=== PATIENT | male | born 1965 | race Caucasian/White ===

== ENCOUNTER 2017-05-04 16:53 | Emergency (ER) | payer MEDICARE, MEDICAID ==
--- NOTE | 2017-05-04 20:27 | ED ---
Lower Extremity - HPI Summary HPI Summary: Patient presents with right foot swelling and pain which has been worsening x 3 weeks and denies injury, denies any fevers. He states he has decreased sensation bilaterally in his legs at baseline. He is anxious during physical exam. He is concerned for an infection. Denies fevers, chills or sweats. He states he does not work and is infrequently on his feet, but has been up more lately. No pain in the calf or the posterior knee. Denies trauma, denies recent travel. - History of Current Complaint Chief Complaint: EDSoftTissueLowExtr Stated Complaint: RIGHT FOOT SWELLING Time Seen by Provider: 05/04/17 19:37 Pain Intensity: 2 - Risk Factors Gout Risk Factors: Male DVT Risk Factors: Negative Septic Arthritis Risk Factor: Negative - Allergies/Home Medications Allergies/Adverse Reactions: Allergies Allergy/AdvReac Type Severity Reaction Status Date / Time Mixed Ragweed Allergy Congestion Verified 05/04/17 19:45 NOTE/MISC Allergy Congestion Verified 05/04/17 19:45 PMH/Surg Hx/FS Hx/Imm Hx Previously Healthy: Yes Endocrine/Hematology History: Denies: Hx Diabetes Cardiovascular History: Denies: Hx Congestive Heart Failure, Hx Hypertension, Hx Pacemaker/ICD History: Denies: Hx Renal Disease Musculoskeletal History: Denies: Hx Rheumatoid Arthritis, Hx Osteoporosis Sensory History: Denies: Hx Hearing Aid Neurological History: Reports: Other Neuro Impairments/Disorders - Hx LUMBAR Fx Psychiatric History: Reports: Hx Anxiety Denies: Hx Panic Disorder - Surgical History Surgery Procedure, Year, and Place: PILONIDAL CYST(LOWER BACK) X 4. CYST ON LEFT ELBOW REMOVED. BASAL CELL REMOVED FROM RIGHT CHEEK - Immunization History Hx Pertussis Vaccination: No Immunizations Up to Date: Unable to Obtain/Confirm Infectious Disease History: No Infectious Disease History: Denies: Traveled Outside the [place] in Last 30 Days - Family History Known Family History: Negative: Cardiac Disease, Hypertension, Diabetes - Social History Occupation: Unemployed Lives: Alone Alcohol Use: Occasionally Hx Substance Use: No Substance Use Type: Reports: None Substance Use Comment - Amount & Last Used: one drink every two weeks Hx Tobacco Use: No Smoking Status (MU): Never Smoked Tobacco Review of Systems Constitutional: Negative ENT: Negative Respiratory: Negative Positive: no symptoms reported, see HPI Positive: Arthralgia - right foot pain Skin: Negative Neurological: Negative Positive: Anxious All Other Systems Reviewed And Are Negative: Yes Physical Exam Triage Information Reviewed: Yes Vital Signs On Initial Exam: Initial Vitals Temp Pulse Resp BP Pulse Ox 97.8 F 77 16 133/91 95 05/04/17 19:45 05/04/17 19:45 05/04/17 19:45 05/04/17 19:45 05/04/17 19:45 Vital Signs Reviewed: Yes Appearance: Positive: Well-Appearing, Well-Nourished Skin: Positive: Warm, Skin Color Reflects Adequate Perfusion Neck: Positive: Supple, Nontender, No Lymphadenopathy Respiratory/Lung Sounds: Positive: Breath Sounds Present Cardiovascular: Positive: Normal, RRR Musculoskeletal: Positive: Pain @ - over the dorsum of the right foot Neurological: Positive: Sensory/Motor Intact, Alert, Oriented to Person Place, Time Psychiatric: Positive: Anxious AVPU Assessment: Alert - [place] Coma Scale Best Eye Response: 4 - Spontaneous Best Motor Response: 6 - Obeys Commands Best Verbal Response: 5 - Oriented Coma Scale Total: 15 Diagnostics - Vital Signs Vital Signs Temp Pulse Resp BP Pulse Ox 05/04/17 19:45 97.8 F 77 16 133/91 95 - Laboratory Lab Statement: Any lab studies that have been ordered have been reviewed, and results considered in the medical decision making process. 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 - Diagnoses Differential Diagnosis/HQI/PQRI: Positive: Infection, Sprain, Strain, Tendonitis Provider Diagnoses: Stress fracture Discharge - Discharge Plan Condition: Stable Disposition: HOME Patient Education Materials: Foot Fracture in Adults (ED) Referrals: Delfina Pugh NP [Primary Care Provider] - Additional Instructions: You have been dx with stress fracture Stress fractures at low-risk sites are managed conservatively with the following interventions Acute pain control as needed using ice, and acetaminophen or ibuprofen Protection of the fracture site with reduced weight-bearing or marciano wrapped for comfort Boot given only if you feel this reduces the pain during ambulation Purchase supportive insoles for shoes to aid in foot structure Reduction or modification of activities such that pain is not present Gradual resumption of activities if pain-free Rehabilitative exercise to promote optimal biomechanics Proper nutrition, including additional calcium and vitamin D Follow up with PCP Call next week for appt.
[2017-05-04 20:48] VITALS: BP 123/88
--- NOTE | 2017-05-05 08:13 | RAD ---
Indication: Multiple weeks RIGHT foot pain and swelling. Comparison: March 31, 2017 radiographs. Technique: [employer] 1.5 Myah IP750G with GEM suite. Noncontrast MRI RIGHT foot from level of the transverse tarsal joint proximally through the toes. Examination limited due to multiplanar T1 and inversion recovery series. Report: Extensive predominant subcutaneous edema as well as edema involving the intrinsic musculature surrounding the second metatarsal. No loculated soft tissue fluid collection evident. Extensive T2 hyperintense marrow edema at the second metatarsal from the base through the distal diaphysis. Nondisplaced oblique coronal fracture plane at the proximal metaphysis. Corresponding loss of normal T1 marrow hyperintensity. There is less specific T2 hyperintense marrow edema at the cuboid, lateral cuneiform, and proximal aspect of the third metatarsal. Partial loss of normal T1 marrow hyperintensity at the distal aspect of the cuboid without definitive fracture plane. Normal articular alignment. Rivas images saved on the [facility] PACS. IMPRESSION: 1. Nondisplaced fracture proximal metaphysis second metatarsal. 2. Noted extensive subcutaneous edema and edema surrounding the second metatarsal is nonspecific. The edema may be secondary to the second metatarsal stress fracture and stress reactions or reactive edema at the third metatarsal, lateral cuneiform, and cuboid bone however cellulitis with deep soft tissue infection and osteomyelitis is not entirely excluded. The fracture at the second metatarsal may represent an insufficiency fracture secondary to osteomyelitis. Clinical correlation warranted. Results discussed with Charge Nurse Becky in the ED 05/05/2017 8:07 AM EDT
== END 2017-05-04 20:48 | disposition home or self-care (01) ==
LOC: ED 16:53
DX: S92.301A Fracture of unspecified metatarsal bone(s), right foot, initial encounter for closed fracture (principal); F41.9 Anxiety disorder, unspecified; X58.XXXA Exposure to other specified factors, initial encounter; Y93.9 Activity, unspecified; Y92.9 Unspecified place or not applicable
CPT/HCPCS: 99282

== ENCOUNTER 2018-01-03 06:38 | Day surgery (SDC) | payer MEDICARE, MEDICAID ==
[~2018-01-03 06:38] MED LIST: Buffered Lidocaine 0.9% SYRIN* 5 ML/SYR SYRINGE INTRADERM ONE; DiMENhydriNATE IV* 50 MG/ML VIAL IV PUSH PRN; Famotidine IV* 10 MG/ML 2 ML (20 mg) IV ONE; Morphine INJ* 2 MG/ML 1 ML CARPUJECT IV PRN; Naloxone* 0.4 MG/ML 1 ML VIAL IV PRN; PROCHLORPERAZINE INJ 5 MG/ML 2 ML VIAL IV PRN; Scopolamine 1.5 mg* PATCH TRANSDERM PRN; fentaNYL* 50 MCG/ML 2 ML VIAL (100 MCG VIAL) IV PRN; oxyCODONE/Acetamin 5/325 MG* TAB PO PRN
[2018-01-03] MEDS ORDERED: ceFAZolin 2 GM (*##) 2 GM/100 ML BAG USE CEFA2SOL IVPB ONE (06:51)
[2018-01-03] MEDS ORDERED: Famotidine IV* 10 MG/ML 2 ML (20 mg) ONE (06:51)
[2018-01-03] MEDS ORDERED: Scopolamine 1.5 mg* PATCH ONE (06:51)
[2018-01-03] MEDS ORDERED: Buffered Lidocaine 0.9% SYRIN* 5 ML/SYR SYRINGE ONE (06:51)
[2018-01-03] MEDS ORDERED: fentaNYL* 50 MCG/ML 2 ML VIAL (100 MCG VIAL) ONE (07:53)
[2018-01-03] MEDS ORDERED: Midazolam* 1 MG/ML 10 ML VIAL (10 MG) ONE (07:53)
[2018-01-03] MEDS ORDERED: Bupivacaine 0.5% SDV PF* 10-30ML VIAL ONE (08:19)
[2018-01-03] MEDS ORDERED: Propofol* 10 MG/ML 20 ML BTL IV PUSH ONE (09:29)
[2018-01-03] MEDS ORDERED: Ondansetron INJ* 2 MG/ML VIAL ONE (09:29)
[2018-01-03] MEDS ORDERED: Dexamethasone IV* 4 MG/ML 1 ML (4 MG) ONE (09:29)
[2018-01-03] MEDS ORDERED: Bupivacaine 0.25% SDV* 30 ML ONE (09:29)
[2018-01-03] MEDS ORDERED: Ketorolac INJ* 30 MG/ML 1 ML VIAL ONE (09:29)
[2018-01-03] MEDS ORDERED: Chloroprocaine 2%* 20 ML VIAL ONE (09:29)
[2018-01-03] MEDS ORDERED: Lidocaine 2% PF * 5 ML VIAL ONE (09:33)
[2018-01-03] MEDS ORDERED: Labetalol IV* 5 MG/ML 20 ML VIAL ONE (10:14)
[2018-01-03] MEDS ORDERED: hydrALAZINE IV* 20 MG/ML VIAL ONE (10:48)
[2018-01-03 11:37] VITALS: BP 147/91
--- NOTE | 2018-01-04 08:27 | OP ---
DATE OF OPERATION: 01/03/18 - [facility] DATE OF : 63 SURGEON: Cuate Gurrola MD IV RN: Loni Mike PA-C PRE-OP DIAGNOSIS: Fractured nonunion right second metatarsal. POST-OP DIAGNOSIS: Fractured nonunion right second metatarsal. OPERATIVE PROCEDURE: Open reduction internal fixation right second metatarsal with tibial bone graft. DESCRIPTION OF PROCEDURE: The patient was taken to the operating room. Thigh tourniquet inflated. We made a longitudinal incision over the dorsum of the midfoot exposing the proximal shaft of the second metatarsal. A nonunion area was taken down with a freer elevator and a small osteotome. Now, we prepared the nonunion site with a 2.4 mm power kristen and harvested some bone graft proximally at Gerdy's tubercle through a 3 cm oblique incision, small corticotomy made with a power bur and curette used to harvest some cancellous bone, which was placed along the nonunion site. We then used an Arthrex 3.0 mm screw plate for the proximal fixation. Two proximal screw holes were made into the proximal fragment and oblique screw across the nonunion site and then two distal locking screws. X-ray intraoperatively showed satisfactory position of the plate. We changed one screw that appeared to be too long. We then irrigated thoroughly closing with Vicryl and nylon suture as well as compression dressing, plaster splint. The proximal tibial donor site was packed with cancellous allograft, closed with 2- 0 Vicryl asif, compression dressing. [id number]/[facility] #: [id number] JEREMY
[2018-01-06] MEDS ORDERED: Scopolamine PATCH Remove* 1 NOTE MISC PATCH OFF ONE (05:53)
== END 2018-01-03 11:37 | disposition home or self-care (01) ==
LOC: OR 06:38
PROVIDERS: ATTEND Orthopaedic Surgery
DX: S92.321K Displaced fracture of second metatarsal bone, right foot, subsequent encounter for fracture with nonunion (principal); E78.5 Hyperlipidemia, unspecified; F42.9 Obsessive-compulsive disorder, unspecified; G89.18 Other acute postprocedural pain; X58.XXXD Exposure to other specified factors, subsequent encounter
CPT/HCPCS: A9270-GY; C1713; C1776; J0360; J1100; J1885; J2250; J2400; J2405; J2704; J3010

== ENCOUNTER 2018-01-06 01:41 | Emergency (ER) | payer MEDICARE, MEDICAID ==
[2018-01-06] MEDS ORDERED: Vancomycin(*) 1,000 MG BAG/ADDV IVPB ONE (02:45)
[2018-01-06] MEDS ORDERED: HYDROmorphone INJ* 1 MG/ML CARPUJECT SYRINGE ONE (02:45)
[2018-01-06] MEDS ORDERED: Acetaminophen TAB* 325 MG ONE (02:45)
[2018-01-06] MEDS ORDERED: Ondansetron INJ* 2 MG/ML VIAL ONE (02:45)
[2018-01-06] MEDS ORDERED: Albuterol/Ipratropium NEB.SOL* Albuterol 2.5 MG/Ipratropium 0.5 MG 3 ML ONE (03:37)
[2018-01-06 03:55] LABS: ABS Basophils 0.1 10^3/ul (0-0.2); ABS Eosinophils 0.2 10^3/ul (0-0.6); ABS Lymphocytes 1.5 10^3/ul (1.0-4.8); ABS Monocytes 1.5 10^3/ul (0-0.8); ABS Nucleated RBC 0 10^3/ul; Eosinophil % 1.8 % (0-6); Hematocrit 53 % (42-52); Hemoglobin 17.7 g/dl (14.0-18.0); Lymphocyte % 12.6 % (25-47); Mean Corpuscular HGB Conc 34 g/dl (31-36); Mean Corpuscular Hemoglobin 29 pg (27-31); Mean Corpuscular Volume 87 fL (80-94); Mean Platelet Volume 8 um3 (7.4-10.4); Nucleated Red Blood Cells % 0.1; Platelet Count 197 10^3/ul (150-450); Red Blood Count 6.07 10^6/ul (4.0-5.4); Red Cell Distribution Width 14 % (10.5-15); White Blood Count 12.3 10^3/ul (3.5-10.8)
[2018-01-06 03:56] LABS: EGFR Non-African American 86.1 (>60)
[2018-01-06 03:57] LABS: INR 0.99 (0.77-1.02)
[2018-01-06] MEDS ORDERED: Piperacillin/Tazobac (*) 3.375 GM BAG ONE (04:23)
--- NOTE | 2018-01-06 05:59 | ED ---
Mercedez Ellis Abhishek, scribed for Marge Trujillo MD on 01/06/18 at 0542 . Lower Extremity - HPI Summary HPI Summary: The pt is a 52 y/o male presenting to the [facility] with a chief complaint of right lower thigh/leg swelling s/p surgery since 3 hours ago. The pt states that the area of the swelling is warm to the touch and exhibits redness. Pt had a surgery two days and flesh was removed from his right knee to cover steel plate in his foot. Pt reports of SOB and anxiety. Pt denies of fevers and chills. Symptoms aggravated by palpation and alleviated by nothing. The patient rates the pain 5/10 in severity. Medication hx reviewed. The physician who performed to surgery on the pt was Dr. Gurrola. - History of Current Complaint Chief Complaint: EDExtremityLower Stated Complaint: RIGHT LEG SWELLING Time Seen by Provider: 01/06/18 01:59 Hx Obtained From: Patient Onset of Pain: Hours - 3 hours ago Onset/Duration: Hours - since 3 hours ago Severity Initially: Moderate Severity Currently: Moderate Pain Intensity: 5 Pain Scale Used: 0-10 Numeric Timing: Constant Location: Is Discrete @ - right lower leg Character Of Pain: Burning Associated Signs And Symptoms: Positive: Swelling Aggravating Factor(s): Other - palpation Alleviating Factor(s): Nothing - Allergies/Home Medications Allergies/Adverse Reactions: Allergies Allergy/AdvReac Type Severity Reaction Status Date / Time ragweed pollen Allergy Intermediate Congestion Verified 01/03/18 06:58 PMH/Surg Hx/FS Hx/Imm Hx Endocrine/Hematology History: Reports: Hx Thyroid Disease - on meds Denies: Hx Diabetes, Hx Anemia - blood levels too high, has blood taken to thin out Cardiovascular History: Denies: Hx Congestive Heart Failure, Hx Hypertension, Hx Pacemaker/ICD Respiratory History: Reports: Hx Asthma, Hx Sleep Apnea - no machine History: Denies: Hx Renal Disease Musculoskeletal History: Reports: Hx Arthritis, Other Musculoskeletal History - broke back 15 years ago Denies: Hx Rheumatoid Arthritis, Hx Osteoporosis Sensory History: Reports: Hx Contacts or Glasses - reading Denies: Hx Cataracts, Hx Glaucoma, Hx Hearing Aid Opthamlomology History: Reports: Hx Contacts or Glasses - reading Denies: Hx Cataracts, Hx Glaucoma Neurological History: Reports: Other Neuro Impairments/Disorders - Hx LUMBAR Fx Psychiatric History: Reports: Hx Anxiety, Hx Depression Denies: Hx Panic Disorder - Cancer History Hx Chemotherapy: No - Surgical History Surgery Procedure, Year, and Place: PILONIDAL CYST(LOWER BACK) X 4. CYST ON LEFT ELBOW REMOVED. BASAL CELL REMOVED FROM RIGHT CHEEK Hx Anesthesia Reactions: No Infectious Disease History: No Infectious Disease History: Denies: Traveled Outside the [place] in Last 30 Days - Family History Known Family History: Negative: Cardiac Disease, Hypertension, Diabetes - Social History Alcohol Use: Occasionally Hx Substance Use: No Substance Use Type: Reports: None Substance Use Comment - Amount & Last Used: one drink every two weeks Hx Tobacco Use: No Smoking Status (MU): Never Smoked Tobacco Review of Systems Negative: Fever, Chills Eyes: Negative ENT: Negative Cardiovascular: Negative Respiratory: Negative Gastrointestinal: Negative Genitourinary: Negative Positive: Edema - right lower leg/thigh Skin: Other - redness in the right lower leg/thigh that is warm to touch Neurological: Negative Positive: Anxious All Other Systems Reviewed And Are Negative: Yes Physical Exam - Summary Physical Exam Summary: VITAL SIGNS: Reviewed. GENERAL: ~Patient is a well-developed and nourished (MALE). Pt is anxious and flushed. Patient is not in any acute respiratory distress. HEAD AND FACE: No signs of trauma. No ecchymosis, hematomas or skull depressions. No sinus tenderness. EYES: PERRLA, EOMI x 2, No injected conjunctiva, no nystagmus. EARS: Hearing grossly intact. Ear canals and tympanic membranes are within normal limits. MOUTH: Oropharynx within normal limits. NECK: Supple, trachea is midline, no adenopathy, no JVD, no carotid bruit, no c- spine tenderness, neck with full ROM. CHEST: Symmetric, n SKIN: Dry and warm o tenderness at palpation LUNGS: Clear to auscultation bilaterally. No wheezing or crackles. CVS: Regular rate and rhythm, S1 and S2 present, no murmurs or gallops appreciated. ABDOMEN: Soft, non-tender. Belly Distended. No rebound no guarding, and no masses palpated. Bowel sounds are normal. EXTREMITIES: Used splint ortho glass by orthopedist, below the knee to the right foot. Right ankle to mid thigh shows redness. NEURO: Alert and oriented x 3. No acute neurological deficits. Speech is normal and follows commands. Triage Information Reviewed: Yes Vital Signs On Initial Exam: Initial Vitals Temp Pulse Resp BP Pulse Ox 97.3 F 96 16 126/82 99 01/06/18 01:44 01/06/18 01:44 01/06/18 01:44 01/06/18 01:44 01/06/18 01:44 Vital Signs Reviewed: Yes Diagnostics - Vital Signs Vital Signs Temp Pulse Resp BP Pulse Ox 01/06/18 05:04 98 F 96 18 118/62 01/06/18 05:00 93 13 99/45 95 01/06/18 04:30 92 18 109/66 96 01/06/18 04:17 99 F 92 18 121/54 98 01/06/18 04:08 92 16 121/54 96 01/06/18 04:00 93 22 143/116 97 01/06/18 03:30 85 17 135/79 97 01/06/18 03:22 84 19 132/71 97 01/06/18 03:03 84 24 131/74 97 01/06/18 03:00 85 20 97 01/06/18 02:47 84 18 96 01/06/18 02:45 109/75 01/06/18 01:44 97.3 F 96 16 126/82 99 - Laboratory Lab Results: Lab Results 01/06/18 01/06/18 01/06/18 Range/Units 02:30 02:30 02:30 WBC 12.3 H (3.5-10.8) 10^3/ul RBC 6.07 H (4.0-5.4) 10^6/ul Hgb 17.7 (14.0-18.0) g/dl Hct 53 H (42-52) % MCV 87 (80-94) fL MCH 29 (27-31) pg MCHC 34 (31-36) g/dl RDW 14 (10.5-15) % Plt Count 197 (150-450) 10^3/ul MPV 8 (7.4-10.4) um3 Neut % (Auto) 73.0 (38-83) % Lymph % (Auto) 12.6 L (25-47) % [place] % (Auto) 12.2 H (0-7) % Eos % (Auto) 1.8 (0-6) % Baso % (Auto) 0.4 (0-2) % Absolute Neuts (auto) 9.0 H (1.5-7.7) 10^3/ul Absolute Lymphs (auto) 1.5 (1.0-4.8) 10^3/ul Absolute Monos (auto) 1.5 H (0-0.8) 10^3/ul Absolute Eos (auto) 0.2 (0-0.6) 10^3/ul Absolute Basos (auto) 0.1 (0-0.2) 10^3/ul Absolute Nucleated RBC 0 10^3/ul Nucleated RBC % 0.1 INR (Anticoag Therapy) 0.99 (0.77-1.02) APTT 30.3 (26.0-36.3) seconds Sodium 133 (133-145) mmol/L Potassium 4.0 (3.5-5.0) mmol/L Chloride 100 L (101-111) mmol/L Carbon Dioxide 25 (22-32) mmol/L Anion Gap 8 (2-11) mmol/L BUN 12 (6-24) mg/dL Creatinine 0.92 (0.67-1.17) mg/dL Est GFR ( Amer) 110.7 (>60) Est GFR (Non-Af Amer) 86.1 (>60) BUN/Creatinine Ratio 13.0 (8-20) Glucose 92 (70-100) mg/dL Lactic Acid (0.5-2.0) mmol/L Calcium 9.6 (8.6-10.3) mg/dL Total Bilirubin 1.00 (0.2-1.0) mg/dL AST 23 (13-39) U/L ALT 19 (7-52) U/L Alkaline Phosphatase 84 (34-104) U/L C-Reactive Protein 146.74 H (< 5.00) mg/L Total Protein 7.0 (6.4-8.9) g/dL Albumin 3.8 (3.2-5.2) g/dL Globulin 3.2 (2-4) g/dL Albumin/Globulin Ratio 1.2 (1-3) 01/06/18 Range/Units 02:30 WBC (3.5-10.8) 10^3/ul RBC (4.0-5.4) 10^6/ul Hgb (14.0-18.0) g/dl Hct (42-52) % MCV (80-94) fL MCH (27-31) pg MCHC (31-36) g/dl RDW (10.5-15) % Plt Count (150-450) 10^3/ul MPV (7.4-10.4) um3 Neut % (Auto) (38-83) % Lymph % (Auto) (25-47) % [place] % (Auto) (0-7) % Eos % (Auto) (0-6) % Baso % (Auto) (0-2) % Absolute Neuts (auto) (1.5-7.7) 10^3/ul Absolute Lymphs (auto) (1.0-4.8) 10^3/ul Absolute Monos (auto) (0-0.8) 10^3/ul Absolute Eos (auto) (0-0.6) 10^3/ul Absolute Basos (auto) (0-0.2) 10^3/ul Absolute Nucleated RBC 10^3/ul Nucleated RBC % INR (Anticoag Therapy) (0.77-1.02) APTT (26.0-36.3) seconds Sodium (133-145) mmol/L Potassium (3.5-5.0) mmol/L Chloride (101-111) mmol/L Carbon Dioxide (22-32) mmol/L Anion Gap (2-11) mmol/L BUN (6-24) mg/dL Creatinine (0.67-1.17) mg/dL Est GFR ( Amer) (>60) Est GFR (Non-Af Amer) (>60) BUN/Creatinine Ratio (8-20) Glucose (70-100) mg/dL Lactic Acid 1.6 (0.5-2.0) mmol/L Calcium (8.6-10.3) mg/dL Total Bilirubin (0.2-1.0) mg/dL AST (13-39) U/L ALT (7-52) U/L Alkaline Phosphatase (34-104) U/L C-Reactive Protein (< 5.00) mg/L Total Protein (6.4-8.9) g/dL Albumin (3.2-5.2) g/dL Globulin (2-4) g/dL Albumin/Globulin Ratio (1-3) Result Diagrams: 01/06/18 02:30 01/06/18 02:30 Lab Statement: Any lab studies that have been ordered have been reviewed, and results considered in the medical decision making process. Lower Extremity Course/Dx - Course Course Of Treatment: The pt is a 52 y/o male presenting to the [facility] with a chief complaint of right lower thigh/leg swelling that is warm to the touch. PSHx includes a steel plate placement in the right foot which required a piece of skin from the right knee. Pt received this surgery two days prior from the onset of the symptoms. The current symptoms began 3 hours ago approximately. Pt reports of SOB and anxiety. Pt is denies and is unsure of chills and fevers. Upon evaluation, we removed the old splint that was placed on by the orthopedist (Dr. Gurrola). We discussed pt care with Dr. Peralta in the [facility] and he accepts pt care. The pt dx will be right lower leg cellulitis and will be [place] [facility] - Diagnoses Provider Diagnoses: Cellulitis of right leg - Physician Notifications Discussed Care Of Patient With: Tyson Peralta - We discussed pt care Discharge - Discharge Plan Condition: Stable Disposition: ADMITTED TO [facility] Referrals: Delfina Pugh NP [Primary Care Provider] - The documentation as recorded by the Mercedez watts Abhishek accurately reflects the service I personally performed and the decisions made by me, Marge Trujillo MD.
[2018-01-06 07:38] VITALS: BP 137/60
--- NOTE | 2018-01-06 08:29 | RAD ---
Indication: Right leg edema. Duplex Doppler sonography of the deep venous system of the right lower extremity deep venous system was performed. Bilaterally the common femoral veins appear patent and compressible. Right proximal greater saphenous vein, proximal deep femoral vein, femoral vein, popliteal vein, posterior tibial veins and peroneal veins appear patent and compressible. IMPRESSION: NO EVIDENCE OF DEEP VENOUS THROMBOSIS IS IDENTIFIED.
--- NOTE | 2018-01-06 17:02 | CONS ---
CC: ZAID Gross; Dr. Cuate Gurrola* CONSULTATION REPORT: DATE OF CONSULT: 01/06/18 PRIMARY CARE PROVIDER: ZAID Gross. SERVICE REQUESTING CONSULTATION: Emergency room. REASON FOR CONSULT: Concern for cellulitis. SOURCE OF INFORMATION: History was obtained from interview with the patient, discussion with Dr. Cuate Gurrola as well as Dr. Hughes as well as review of past medical records. RELIABILITY: Good. CHIEF COMPLAINT: Right knee swelling. HISTORY OF PRESENT ILLNESS: This is a 52-year-old man, recent surgery on including open reduction and internal fixation of right second metatarsal with tibial bone graft performed by Dr. Cuate Gurrola who returned home, has been noncompliant with recommendations as reported by the patient's parents including has not remained off his leg and is not elevating leg who noted increasing swelling of his right knee and therefore presented to the emergency room. Denies any fevers, chills or night sweats or pain. He has had no cough, shortness of breath, nausea or vomiting as noted above, has been ambulating on the leg. He was seen by the emergency room with swelling in his right leg, mild erythema. He received a dose of antibiotics in the emergency room including vancomycin and Zosyn. Blood cultures have been sent. Discussed the care with Dr. Gurrola and he confirms as long as this author does not think he requires IV antibiotics for developing cellulitis that the erythema may be secondary to some subcutaneous hemorrhage after the procedure. My impression is as follows below: REVIEW OF SYSTEMS: Review of systems is negative for all systems except for swelling around his knee not intraarticular based on my exam. PAST MEDICAL HISTORY: Includes severe OCD, severe anxiety disorder, hypocholesterolemia, obesity, hypertension. HOME MEDICATIONS: Include, 1. Loratadine 10 mg. 2. Simvastatin 20 mg 3. Levocetirizine 5 mg as needed. 4. Mometasone 50 micrograms daily. 5. Ventolin HFA 108 micrograms twice daily. 6. Seroquel 300 mg twice daily. 7. Trazodone 50 mg twice daily. 8. Clomipramine 50 mg 1 in the morning and 3 at bedtime. 9. Gabapentin 600 mg 3 times a day. 10. Aripiprazole 10 mg daily. 11. Hydroxyzine 30 mg 3 times a day. 12. Lorazepam 1 mg 3 times a day p.r.n. PERTINENT VITALS IN THE EMERGENCY ROOM: Include, T-max 99 degrees Fahrenheit, 137/60, heart rate 95, respiratory rate is 16. He is 95% on room air. PHYSICAL EXAMINATION: Sitting up in bed, interactive, pleasant, in no apparent distress. Regular rate and rhythm. No murmurs, rubs or gallops. Lungs are clear to auscultation. He is obese. His oropharynx is clear. He has moist mucous membranes. His right lower extremity indicates some swelling of his right knee without evidence of effusion. Skin exam is notable for some erythema over his right knee. It does not involve the incision over tibial bone where graft was retrieved and lower section of it is completely linear, which will be inconsistent with cellulitis. It extends up mildly of his right medial thigh. Area was demarcated with a marker. Nontender to palpation. He is alert and oriented x3. LABORATORY DATA: Pertinent labs reviewed. White blood cell count is 12.3 with 73% neutrophils, hemoglobin is 17.7. It is consistent with previous values. Platelets 197. Lactic acid is 1.6, CRP is 146. IMAGING STUDIES: Data reviewed. Lower extremity venous Doppler, no evidence of DVT. ASSESSMENT AND PLAN: A 52-year-old man presenting with swelling of his right lower extremity 2 days after surgery. While this may represent a cellulitis, it may also represent postoperative changes. He has received vancomycin and Zosyn in the emergency room. I have recommended to continue Bactrim as well as first generation cephalosporin such as cefazolin. Patient also agrees and we will prescribe to patient on discharge. Patient was counseled at length to keep his leg up and not ambulate on it. Today is Wednesday and he will follow up with Dr. Gurrola on Wednesday. He has confirmed numerous times that he will make the appointment himself. The area was demarcated and counseled the patient that should it extend beyond the area of demarcation or should he develop fevers or chills or if he develops worsening erythema, he should contact his physician immediately and/or present back to the emergency room. He acknowledged understanding as well as his parents acknowledged understanding who are staying with him after the operation. FOLLOWUP: Evaluate for continued erythema and/or improvement. Evaluate for continued need of antibiotics. Blood cultures and additional antibiotics were drawn in the emergency room. Please follow up, ensure they remain negative. No other changes in medications. TIME SPENT: Greater than 60 minutes was spent on evaluation of this patient. [id number]/[facility] #: [id number] JEREMY
--- NOTE | 2018-01-07 17:52 | ED ---
IKayode Angela, scribed for Mohan Hughes MD on 01/06/18 at 0846 . Progress - Progress Note Progress Note: Overnight the pt was admitted to the hospitalist services. After Dr. Peace saw the pt this morning and discussed the case with Dr. Gurrola, they ordered an ultrasound of the right leg which was negative. Dr. Peace requested to discharge the pt home with follow up from Dr. Gurrola tomorrow. He requested that I send the pt home with Bactrim and Cephalexin. I was not aware of the pt and the pt was not signed out to me, I just did the favor to discharge the pt home. Pt will be discharged home, in stable condition, with a diagnosis of cellulitis. Condition: Stable Disposition: Home Course/Dx - Diagnoses Provider Diagnoses: Cellulitis of right leg The documentation as recorded by the Kayode watts Angela accurately reflects the service I personally performed and the decisions made by me, Mohan Hughes MD.
== END 2018-01-06 09:00 | disposition short-term general hospital (02) ==
LOC: ED 01:41
DX: L76.82 Other postprocedural complications of skin and subcutaneous tissue (principal); L03.115 Cellulitis of right lower limb; Y83.9 Surgical procedure, unspecified as the cause of abnormal reaction of the patient, or of later complication, without mention of misadventure at the time of the procedure; F41.9 Anxiety disorder, unspecified; E07.9 Disorder of thyroid, unspecified; F42.9 Obsessive-compulsive disorder, unspecified; E78.00 Pure hypercholesterolemia, unspecified; E66.9 Obesity, unspecified; I10 Essential (primary) hypertension
CPT/HCPCS: 36415; 80053; 83605; 85025; 85610; 85730; 86140; 87040; 99284; A9270-GY; J1170; J2405; J2543; J3370

== ENCOUNTER 2018-05-25 09:16 | Day surgery (SDC) | payer MEDICARE, MEDICAID ==
[~2018-05-25 09:16] MED LIST changes: +Dexamethasone IV* 4 MG/ML 1 ML (4 MG) IV SLOW PU ONE; -DiMENhydriNATE IV* 50 MG/ML VIAL IV PUSH PRN; -Morphine INJ* 2 MG/ML 1 ML CARPUJECT IV PRN; -Naloxone* 0.4 MG/ML 1 ML VIAL IV PRN; -PROCHLORPERAZINE INJ 5 MG/ML 2 ML VIAL IV PRN; -Scopolamine 1.5 mg* PATCH TRANSDERM PRN; -fentaNYL* 50 MCG/ML 2 ML VIAL (100 MCG VIAL) IV PRN; -oxyCODONE/Acetamin 5/325 MG* TAB PO PRN
[2018-05-25] MEDS ORDERED: Famotidine IV* 10 MG/ML 2 ML (20 mg) ONE (09:37)
[2018-05-25] MEDS ORDERED: Dexamethasone IV* 4 MG/ML 1 ML (4 MG) ONE ×2 (09:37→12:34)
[2018-05-25] MEDS ORDERED: Midazolam* 1 MG/ML 2 ML VIAL (2 MG) ONE (12:08)
[2018-05-25] MEDS ORDERED: fentaNYL* 50 MCG/ML 2 ML VIAL (100 MCG VIAL) ONE (12:13)
[2018-05-25] MEDS ORDERED: Ondansetron INJ* 2 MG/ML VIAL ONE (12:34)
[2018-05-25] MEDS ORDERED: Lidocaine 2% PF * 5 ML VIAL ONE (12:34)
[2018-05-25] MEDS ORDERED: Succinylcholine* 20 MG/ML 10 ML VIAL ONE (12:34)
[2018-05-25] MEDS ORDERED: Propofol* 10 MG/ML 20 ML BTL IV PUSH ONE (12:34)
[2018-05-25] MEDS ORDERED: DiMENhydriNATE IV* 50 MG/ML VIAL IV PUSH PRN (12:47)
[2018-05-25] MEDS ORDERED: Ondansetron INJ* 2 MG/ML VIAL IV PRN (12:47)
[2018-05-25] MEDS ORDERED: oxyCODONE/Acetamin 5/325 MG* TAB PO PRN (12:47)
[2018-05-25] MEDS ORDERED: Acetaminophen TAB* 325 MG PO PRN (12:47)
[2018-05-25] MEDS ORDERED: Naloxone* 0.4 MG/ML 1 ML VIAL IV PRN (12:47)
[2018-05-25] MEDS ORDERED: fentaNYL* 50 MCG/ML 2 ML VIAL (100 MCG VIAL) IV PRN (12:47)
[2018-05-25 13:53] VITALS: BP 138/94
--- NOTE | 2018-05-26 03:02 | OP ---
DATE OF OPERATION: 05/25/18 - [facility] DATE OF : 63 SURGEON: Dimitrios Santana M.D. PRE-OP DIAGNOSIS: Ulcer, right lateral tongue. POST-OP DIAGNOSIS: Ulcer, right lateral tongue. OPERATION PERFORMED: Excision of right lateral tongue lesion. BRIEF HISTORY: This pleasant 52-year-old gentleman with persistent ulcer of the right tongue, painful, had multiple medical trials that had been unsuccessful. DESCRIPTION OF PROCEDURE: The patient was taken to the operating room. The patient intubated. Tongue was then examined. Elliptical excision was carried out, 1 cm wide x 2 cm long. The wound was closed in a single layer using 4-0 Vicryl. The patient tolerated the procedure well without any complications. He was awakened, extubated, and sent to recovery room in stable condition. [id number] #: [id number] MTDD
== END 2018-05-25 13:45 | disposition home or self-care (01) ==
LOC: OR 09:16
PROVIDERS: ATTEND Otolaryngology
DX: K14.8 Other diseases of tongue (principal); E78.5 Hyperlipidemia, unspecified; E03.9 Hypothyroidism, unspecified; F41.8 Other specified anxiety disorders; E66.01 Morbid (severe) obesity due to excess calories; J45.909 Unspecified asthma, uncomplicated
CPT/HCPCS: 88305; 88342; J0330; J1100; J2250; J2405; J2704; J3010

== ENCOUNTER 2018-07-15 16:27 | Emergency (ER) | payer MEDICARE, MEDICAID ==
[2018-07-15 16:51] VITALS: BP 132/87
--- OUTSIDE RECORDS SUMMARY | 2018-07-15 17:01 | XMS REPORT | Continuity of Care Document ---
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 POA Problems Description No Information Family History Date Family Member(s) Problem(s) Comments Father Healthy Mother CAD Mother Cancer, Breast Mother Scoliosis Social History Type Date Description Comments Sex Unknown Marital Status Single Lives With Alone Smoke-Free Home is smoke-free 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 Tobacco Use Start: Unknown Never Smoked Cigarettes ETOH Use Denies alcohol use Recreational Drug Use Denies Drug Use Tobacco Use Start: Unknown Patient has never smoked Guns in Home No Allergies, Adverse Reactions, Alerts Date Description Reaction Status Severity Comments 03/14/2018 Pollen Active 03/14/2018 Ragweed Active 03/14/2018 Alpesh [place] Pollen Extract Active 03/14/2018 Dandelion Extract Active 10/31/2012 NKDA Inactive Medications Medication Date Status Form Strength Qnty SIG Indications Ordering Provider Clotrimazole/Be 03/14 Active Cream 1-0.05% 15gm 1 apply to B37.2 Lauri tamethasone affected [place] Dipropionate area twice a , MD day for 2 weeks Proctozone-HC 02/04 Active Cream 2.5% 30gm apply to K64.9 Shawnti 2018 hemorrhoids R. Storm, 3 - 4 times [employer] daily if needed Lidocaine-Prilo 02/04 Active Cream 2.5-2.5% 25gm apply pea K64.9 Shawnti elizabeth sized area 3 R. Storm, to 4 times [employer] daily for pain Semprex-D 07/29 Active Capsules 8-60mg 60cap take one Lauri s capsule by Sheeba preston four , MD times a day Levothroid 11/25 Active Tablets 88mcg ZAID [place]-Nicholas Lorazepam 11/06 Active Tablets 1mg 1 po tid Delfina LUCINDA TidwellP-C Trazodone HCL 11/06 Active Tablets 50mg 30tab take 1 Delfina s tablet po [place], bid [employer] Simvastatin 11/06 Active Tablets 20mg 90tab take one s tablet by [place] mouth at [facility] bedtime for cholesterol Montelukast 10/31 Active Tablets 10mg 30tab take one R05 Lauri Sodium s tablet by Sheeba preston at , MD bedtime Abilify Active Tablets 10mg 1 po hs Unknown /0000 Hydroxyzine HCL Active Tablets 50mg 60tab 1 tab po tid Unknown /0000 s Clomipramine Active Capsules 50mg 1 tab po bid Unknown HCL 0000 Androgel Active Gel 25mg/2.5G apply 1 Unknown /0000 M packet to skin once daily Quetiapine Active Tablets 300mg take 2 Unknown Fumarate /0000 tablets po q hs Gabapentin Active Capsules 300mg 90cap 1 tablet po Unknown /0000 s tid Hydrocodone Active Solution 7.5-325mg [place] Bitartrate/Acet /0000 /15ML ,Mark aminophen M.D. Econazole 09/17 Hx Cream 1% 30gm apply twice a day to Keaton, - groin rash [employer] 03/14 as for 2-4 weeks Clotrimazole/Be 09/15 Hx Cream 1-0.05% 15gm 1 apply to L30.4 Lauri tamethasone /2016 affected [place] Dipropionate - area twice a , 03/14 day for week Bactrim DS 05/05 Hx Tablets 800-160mg 20tab 1 by mouth M86.271 s twice a day Keaton, - x 10 days [employer] 12/15 Meloxicam 04/26 Hx Tablets 15mg 30tab 1 by mouth M72.2 s every day, Keaton, - take with [employer] 03/14 food Mucinex 03/23 Hx Tablets ER 600mg 60tab take 1 R05 12HR s tablet by Ke[place], - mouth twice [employer] 07/29 a day needed for cough and to think mucus..drink extra water Meloxicam 03/03 Hx Tablets 7.5mg 60tab take 1 M72.2 s tablet by Ke[place], - mouth twice [employer] 04/26 daily with food for back pain Keflex 11/27 Hx Capsules 500mg 10cap 1 tab by s mouth twice Ke[place], - a day [employer] 02/09 Augmentin 11/25 Hx Tablets 875-125mg 20tab 1 by mouth L05.91 s twice a day Keaton, - for [employer] 02/09 infection, take for 10 days Ibuprofen 11/25 Hx Tablets 600mg 120ta take one bs tablet by Ke[place], - mouth 4 [employer] 03/14 times daily with food as needed for pain Loratadine 11/22 Hx Tablets 10mg 30tab 1 by mouth s every day Keaton, - [employer] 03/14 Doxycycline 09/14 Hx Capsules 100mg 2caps 2 tablets by S40.861A Delfina Sanchezhydrate /2015 mouth now Keaton, - [employer] 10/21 Triamcinolone 08/18 Hx Cream 0.1% 15gm apply to L30.9 Tom Acetonide affected [place] - area 2-3 III, 02/09 times daily [employer] Cephalexin 06/16 Hx Tablets 500mg 14tab 1 tablet by K12.2 Tom s mouth twice [place] - daily for 7 III, 11/25 days [employer] Keflex 06/15 Hx Capsules 500mg 4caps 1 tab by Lauri mouth twice Heetdevinks - a day , 10/21 Mupirocin 06/09 Hx Ointment 2% 22gm apply to L08.9 affected Jennyfer - area 3 times III, 11/25 daily for 7 [employer] days Diazepam 02/25 Hx Tablets 5mg 2tabs take one tablet 1 Keaton, - hour prior [employer] 02/09 to procedure. may repeat x1 Zyrtec Allergy 10/16 Hx Tablets 10mg 30tab 1 by mouth Delfina /2014 s every day as [place], - needed for [employer] 11/20 allergies Mucinex 09/23 Hx Tablets ER 600mg 60tab take 1 J30.9 12HR s tablet by Emma Garcia, - mouth twice [employer] 11/20 a day as needed for cough and to think mucus..drink extra water Econazole 10/11 Hx Cream 1% 15gm apply to 110.9 Delfina Nitrate groin area Ke[place], - twice a day [employer] 03/03 Valium 09/24 Hx Tablets 2mg 2tabs 1 by mouth henny 30 min prior Emma Garcia, - to [employer] 09/26 procedure, may repeat in one hour if needed Anusol-HC 08/15 Hx Cream 2.5% 30uni Apply To 455.0 ts Rectum Three Emma Garcia, - Times A Day [employer] 09/27 as Needed Oxycodone HCL 07/16 Hx Tablets 5mg 5five 1 by mouth 455.4 q6hr as Ke[place], - needed [employer] 09/23 severe pain /2014 Lisinopril 05/04 Hx Tablets 5mg 30tab 1 by mouth s every day Ke[place], - replaces 10 [employer] 06/04 mg dose Sulfamethoxazol 08/31 Hx Tablets 800-160mg 20tab 1 po bid for 682.8 Shawnti e/Trimethoprim s infection, Emma Garcia, DS - take for 10 [employer] 06/04 days Fluticasone 06/30 Hx Suspension 50mcg/Act 16gm 2 sprays Delfina Propionate into each Ke[place], - nostril once [employer] 11/25 Miralax 11/11 Hx Packet [id number] 1mont 1 packet po 564.00 h daily for Emma Garcia, - stools, can [employer] 02/16 increase to bid if needed Proctocare-HC 11/11 Hx Cream 2.5% 28.35 Apply To 455.0 units Rectum Three Emma Garcia, - Times A Day [employer] 08/15 as Needed Lisinopril 11/06 Hx Tablets 10mg 30tab Take One s Tablet By Emma Garcia, - Mouth Every [employer] Cetirizine HCL 10/31 Hx Tablets 10mg 30tab 1 po qd 786.2 s Keaton, - [employer] 10/31 Levothroid Hx Tablets 75mcg 1 tab po q Celzo, /0000 am on empty Desi - stomach 1 11/25 hour prior to meal and other meds Loratadine-D Hx Tablets ER 10-240mg 90tab take one Delfina 24HR /0000 24HR s tablet by [place], - mouth every [employer] Immunizations CPT Code Status Date Vaccine Lot # [id number] Given 07/11/2018 Influenza Virus Vaccine, Quadrivalent, 3 Yr > [id number] Quad, Preserv Free 29364 Given 07/25/2017 Influenza Virus Vaccine, Quadrivalent, 3 Yr > Quad, Preserv Free 69050 Given 03/10/2017 Tdap (Adacel) [id number] 81239 Given 08/04/2016 Influenza Virus Vaccine, Quadrivalent, 3 Yr > Quad, Preserv Free 27112 Given 08/04/2016 Prevnar-13 Pneumococcal Conjugate Vaccine 90093 Given 08/23/2015 Influenza Virus Vaccine, Quadrivalent, 3 Yr > Quad, Preserv Free 69324 Given 11/03/2013 Influenza Vaccine-Preservative Free 3 Yrs And [id number] Above Vital Signs Date Vital Result Comment 07/11/2018 1:07pm Weight 237.00 lb Weight 107.503 kg BP Systolic 118 mmHg BP Diastolic 74 mmHg Heart Rate 84 /min Body Temperature 97.3 F Respiratory Rate 16 /min Height 63 inches 5'3" BMI (Body Mass Index) 42.0 kg/m2 05/27/2018 11:57am Weight 252.00 lb Weight 114.307 kg BP Systolic 102 mmHg BP Diastolic 74 mmHg Heart Rate 88 /min Body Temperature 98.1 F Respiratory Rate 16 /min 05/11/2018 9:39am Weight 256.00 lb Weight 116.122 kg BP Systolic 124 mmHg BP Diastolic 78 mmHg Heart Rate 92 /min Body Temperature 97.5 F Respiratory Rate 20 /min O2 % BldC Oximetry 98 % 03/14/2018 5:13pm Weight 244.00 lb Weight 110.678 kg BP Systolic 130 mmHg BP Diastolic 84 mmHg Heart Rate 84 /min Body Temperature 98.5 F Height 64 inches 5'4" BMI (Body Mass Index) 41.9 kg/m2 O2 % BldC Oximetry 93 % 02/18/2018 1:53pm Weight 236.00 lb Weight 107.050 kg BP Systolic 136 mmHg BP Diastolic 98 mmHg Heart Rate 88 /min Body Temperature 97.4 F Respiratory Rate 18 /min O2 % BldC Oximetry 98 % 02/04/2018 4:28pm Weight 233.00 lb Weight 105.689 kg BP Systolic 112 mmHg BP Diastolic 78 mmHg Heart Rate 92 /min Body Temperature 97.3 F Respiratory Rate 16 /min 11/05/2017 2:04pm Weight 226.00 lb Weight 102.514 kg BP Systolic 120 mmHg BP Diastolic 80 mmHg Heart Rate 80 /min Body Temperature 97.3 F Respiratory Rate 15 /min O2 % BldC Oximetry 98 % 09/15/2017 1:10pm Weight 223.00 lb Weight 101.153 kg BP Systolic 110 mmHg BP Diastolic 72 mmHg Heart Rate 80 /min Body Temperature 97.6 F O2 % BldC Oximetry 97 % 05/05/2017 11:41am Weight 218.00 lb Weight 98.885 kg BP Systolic 110 mmHg BP Diastolic 78 mmHg Heart Rate 96 /min Body Temperature 98.1 F Respiratory Rate 20 /min O2 % BldC Oximetry 98 % 04/26/2017 3:11pm Weight 223.00 lb Weight 101.153 kg BP Systolic 120 mmHg BP Diastolic 80 mmHg Heart Rate 84 /min 03/30/2017 10:08am Weight 219.00 lb Weight 99.338 kg BP Systolic 120 mmHg BP Diastolic 70 mmHg Heart Rate 76 /min Body Temperature 97.8 F 03/23/2017 9:00am Weight 216.00 lb Weight 97.978 kg BP Systolic 100 mmHg BP Diastolic 74 mmHg Heart Rate 82 /min Body Temperature 98.3 F Respiratory Rate 16 /min O2 % BldC Oximetry 98 % 03/15/2017 10:55am Weight 219.00 lb Weight 99.338 kg BP Systolic 90 mmHg BP Diastolic 64 mmHg Heart Rate 86 /min Body Temperature 97.9 F Respiratory Rate 16 /min 03/10/2017 11:11am Weight 220.00 lb Weight 99.792 kg BP Systolic 112 mmHg BP Diastolic 70 mmHg Heart Rate 72 /min Body Temperature 98.2 F Respiratory Rate 16 /min 03/08/2017 2:29pm Weight 215.00 lb Weight 97.524 kg BP Systolic 126 mmHg BP Diastolic 80 mmHg Heart Rate 94 /min Body Temperature 96.7 F Respiratory Rate 20 /min O2 % BldC Oximetry 97 % 03/03/2017 11:02am Weight 221.00 lb Weight 100.246 kg BP Systolic 122 mmHg BP Diastolic 82 mmHg Heart Rate 90 /min Body Temperature 98.6 F Respiratory Rate 18 /min O2 % BldC Oximetry 95 % 02/09/2017 9:42am Weight 222.00 lb Weight 100.699 kg BP Systolic 116 mmHg BP Diastolic 80 mmHg Heart Rate 86 /min Body Temperature 97.4 F Respiratory Rate 16 /min O2 % BldC Oximetry 96 % 12/21/2016 10:59am Weight 216.00 lb Weight 97.978 kg BP Systolic 120 mmHg BP Diastolic 74 mmHg Heart Rate 76 /min Body Temperature 97.9 F Respiratory Rate 16 /min 12/01/2016 3:48pm Weight 217.00 lb Weight 98.431 kg BP Systolic 120 mmHg BP Diastolic 80 mmHg Heart Rate 80 /min Body Temperature 97.2 F Respiratory Rate 16 /min 11/25/2016 3:04pm Weight 220.00 lb Weight 99.792 kg BP Systolic 98 mmHg BP Diastolic 76 mmHg Heart Rate 100 /min Body Temperature 98.0 F Respiratory Rate 18 /min O2 % BldC Oximetry 96 % 10/21/2016 9:37am Weight 218.00 lb Weight 98.885 kg BP Systolic 130 mmHg BP Diastolic 85 mmHg Heart Rate 84 /min Body Temperature 97.1 F 09/14/2016 10:30am Weight 210.00 lb Weight 95.256 kg BP Systolic 110 mmHg BP Diastolic 80 mmHg Heart Rate 80 /min Body Temperature 97.2 F Respiratory Rate 16 /min 08/18/2016 9:04am Weight 202.00 lb Weight 91.627 kg BP Systolic 132 mmHg BP Diastolic 94 mmHg Heart Rate 80 /min Body Temperature 97.6 F Respiratory Rate 20 /min O2 % BldC Oximetry 97 % 06/22/2016 8:59am Weight 206.00 lb Weight 93.442 kg BP Systolic 116 mmHg BP Diastolic 72 mmHg Heart Rate 88 /min Body Temperature 97.5 F Respiratory Rate 17 /min O2 % BldC Oximetry 97 % 06/16/2016 11:11am Weight 205.00 lb Weight 92.988 kg BP Systolic 100 mmHg BP Diastolic 70 mmHg Heart Rate 76 /min Body Temperature 97.8 F Respiratory Rate 20 /min 06/15/2016 10:05am Weight 203.00 lb Weight 92.081 kg BP Systolic 120 mmHg BP Diastolic 76 mmHg Heart Rate 100 /min Body Temperature 97.8 F Respiratory Rate 20 /min 06/09/2016 9:00am Weight 207.00 lb Weight 93.895 kg BP Systolic 118 mmHg BP Diastolic 80 mmHg Heart Rate 76 /min Body Temperature 97.8 F Respiratory Rate 20 /min 11/20/2015 9:23am Weight 211.00 lb Weight 95.710 kg BP Systolic 108 mmHg BP Diastolic 78 mmHg Heart Rate 80 /min Height 63 inches 5'3" BMI (Body Mass Index) 37.4 kg/m2 11/04/2015 2:39pm Weight 214.00 lb Weight 97.070 kg BP Systolic 117 mmHg BP Diastolic 86 mmHg Heart Rate 84 /min Body Temperature 96.8 F 10/16/2015 11:11am Weight 218.00 lb Weight 98.885 kg BP Systolic 112 mmHg BP Diastolic 80 mmHg Heart Rate 92 /min 10/09/2015 3:50pm Weight 220.00 lb Weight 99.792 kg BP Systolic 118 mmHg BP Diastolic 78 mmHg Heart Rate 80 /min 09/23/2015 4:41pm Weight 220.00 lb Weight 99.792 kg BP Systolic 100 mmHg BP Diastolic 70 mmHg Heart Rate 108 /min Body Temperature 98.7 F O2 % BldC Oximetry 98 % 10/11/2014 12:40pm Weight 192.00 lb Weight 87.091 kg BP Systolic 94 mmHg BP Diastolic 66 mmHg Heart Rate 88 /min Body Temperature 97.4 F 07/27/2014 10:31am Weight 185.00 lb Weight 83.916 kg BP Systolic 102 mmHg BP Diastolic 66 mmHg Heart Rate 68 /min 07/16/2014 8:12am Weight 181.00 lb Weight 82.102 kg BP Systolic 102 mmHg BP Diastolic 70 mmHg Heart Rate 76 /min 06/12/2014 8:50am BP Systolic 108 mmHg BP Diastolic 54 mmHg 06/04/2014 9:00am Weight 185.00 lb Weight 83.916 kg BP Systolic 110 mmHg BP Diastolic 60 mmHg Heart Rate 76 /min 05/04/2014 8:51am Weight 196.00 lb Weight 88.906 kg BP Systolic 90 mmHg repeat 98/68 BP Diastolic 70 mmHg repeat 98/68 Heart Rate 76 /min 02/20/2014 9:48am Weight 210.00 lb Weight 95.256 kg BP Systolic 100 mmHg BP Diastolic 74 mmHg Heart Rate 104 /min Body Temperature 97.7 F 11/03/2013 8:40am Weight 208.00 lb Weight 94.349 kg BP Systolic 120 mmHg BP Diastolic 86 mmHg Heart Rate 112 /min 08/31/2013 11:55am Weight 209.00 lb Weight 94.802 kg BP Systolic 98 mmHg BP Diastolic 66 mmHg Heart Rate 104 /min Body Temperature 97.5 F 08/28/2013 10:13am Weight 210.00 lb Weight 95.256 kg BP Systolic 100 mmHg BP Diastolic 60 mmHg Heart Rate 80 /min 08/02/2013 12:12pm Weight 206.00 lb Weight 93.442 kg BP Systolic 104 mmHg BP Diastolic 76 mmHg Heart Rate 96 /min Body Temperature 98.6 F O2 % BldC Oximetry 98 % level at rest 06/30/2013 9:00am Weight 206.00 lb Weight 93.442 kg BP Systolic 102 mmHg BP Diastolic 74 mmHg Heart Rate 104 /min Body Temperature 97.1 F O2 % BldC Oximetry 98 % 05/11/2013 12:44pm Weight 202.00 lb Weight 91.627 kg BP Systolic 110 mmHg BP Diastolic 70 mmHg Heart Rate 100 /min Body Temperature 97.7 F 02/27/2013 8:58am Weight 201.00 lb Weight 91.174 kg BP Systolic 110 mmHg repeat 110/82 BP Diastolic 90 mmHg repeat 110/82 Heart Rate 98 /min Body Temperature 98.7 F O2 % BldC Oximetry 97 % AT Room Air 11/28/2012 10:06am Weight 210.75 lb Weight 95.596 kg BP Systolic 108 mmHg BP Diastolic 84 mmHg Heart Rate 92 /min Body Temperature 97.9 F O2 % BldC Oximetry 94 % AT Room Air 11/11/2012 11:19am Weight 203.00 lb Weight 92.081 kg BP Systolic 104 mmHg BP Diastolic 78 mmHg Heart Rate 80 /min 10/31/2012 9:51am Weight 198.00 lb Weight 89.813 kg BP Systolic 100 mmHg BP Diastolic 70 mmHg Heart Rate 110 /min Body Temperature 98.7 F Height 64.5 inches 5'4.50" BMI (Body Mass Index) 33.5 kg/m2 O2 % BldC Oximetry 98 % AT Room Air Results Test Date Facility Test Result H/L Range Note Laboratory test 07/11/2018 [facility] TSH 0.87 mcIU/ mL 0.34-5.60 1 finding [phone] (Thyroid Stim Horm) Free T4 (Free Thyroxine) 0.57 ng/dL Low 0.61-1.12 2 Lipid Profile 07/11/2018 [facility] Triglycerides 230 mg/dL 3 (Trig/Chol/HDL) [phone] Cholesterol 153 mg/dL 4 HDL Cholesterol 38.2 mg/dL 5 LDL Cholesterol 69 mg/dL 6 Laboratory 05/31/2018 [facility] Hepatitis C Nonreactive Nonreactive 7 test finding [phone] Antibody Comp Metabolic 01/06/2018 [facility] Sodium 133 mmol/ L 133-145 Panel [phone] Potassium 4.0 mmol/L 3.5-5.0 Chloride 100 mmol/L Low 101-111 Co2 Carbon Dioxide 25 mmol/L 22-32 Anion Gap 8 mmol/L 2-11 Glucose 92 mg/dL 70-100 Blood Urea Nitrogen 12 mg/dL 6-24 Creatinine 0.92 mg/dL 0.67-1.17 BUN/Creatinine Ratio 13.0 8-20 Calcium 9.6 mg/dL 8.6-10.3 Total Protein 7.0 g/dL 6.4-8.9 Albumin 3.8 g/dL 3.2-5.2 Globulin 3.2 g/dL 2-4 Albumin/Globulin Ratio 1.2 1-3 Total Bilirubin 1.00 mg/dL 0.2-1.0 Alkaline Phosphatase 84 U/L 34-104 Alt 19 U/L 7-52 Ast 23 U/L 13-39 Egfr Non- 86.1 >60 Egfr 110.7 >60 8 Laboratory test 01/06/2018 [facility] C Reactive 146.74 mg/L High < 5.00 9 finding [phone] Protein CBC Auto Diff 01/06/2018 [facility] White Blood 12.3 High 3.5-10.8 [phone] Count 10^3/uL Red Blood Count 6.07 10^6/uL High 4.0-5.4 Hemoglobin 17.7 g/dL 14.0-18.0 Hematocrit 53 % High 42-52 Mean Corpuscular Volume 87 fL 80-94 Mean Corpuscular Hemoglobin 29 pg 27-31 Mean Corpuscular HGB Conc 34 g/dL 31-36 Red Cell Distribution Width 14 % 10.5-15 Platelet Count 197 10^3/uL 150-450 Mean Platelet Volume 8 um3 7.4-10.4 Abs Neutrophils 9.0 10^3/uL High 1.5-7.7 Abs Lymphocytes 1.5 10^3/uL 1.0-4.8 Abs Monocytes 1.5 10^3/uL High 0-0.8 Abs Eosinophils 0.2 10^3/uL 0-0.6 Abs Basophils 0.1 10^3/uL 0-0.2 Abs Nucleated RBC 0 10^3/uL Granulocyte % 73.0 % 38-83 Lymphocyte % 12.6 % Low 25-47 Monocyte % 12.2 % High 0-7 Eosinophil % 1.8 % 0-6 Basophil % 0.4 % 0-2 Nucleated Red Blood Cells % 0.1 Laboratory test 01/06/2018 [facility] Lactic Acid 1.6 mmol/L 0.5-2.0 10 finding [phone] Inr/Protime 01/06/2018 [facility] Inr 0.99 0.77- 1.02 [phone] Laboratory test 01/06/2018 [facility] Partial 30.3 seconds 26.0-36.3 finding [phone] Thrombo Time PTT Blood Culture SEE RESULT BELOW 11 CBC Auto 12/31/2017 [facility] White Blood 11.3 10^3/ uL High 3.5-10.8 Diff [phone] Count Red Blood Count 5.79 10^6/uL High 4.0-5.4 Hemoglobin 17.1 g/dL 14.0-18.0 Hematocrit 51 % 42-52 Mean Corpuscular Volume 88 fL 80-94 Mean Corpuscular Hemoglobin 30 pg 27-31 Mean Corpuscular HGB Conc 34 g/dL 31-36 Red Cell Distribution Width 14 % 10.5-15 Platelet Count 235 10^3/uL 150-450 Mean Platelet Volume 8 um3 7.4-10.4 Abs Neutrophils 8.6 10^3/uL High 1.5-7.7 Abs Lymphocytes 1.6 10^3/uL 1.0-4.8 Abs Monocytes 0.9 10^3/uL High 0-0.8 Abs Eosinophils 0.1 10^3/uL 0-0.6 Abs Basophils 0.1 10^3/uL 0-0.2 Abs Nucleated RBC 0.1 10^3/uL Granulocyte % 76.2 % 38-83 Lymphocyte % 14.4 % Low 25-47 Monocyte % 7.8 % High 0-7 Eosinophil % 1.0 % 0-6 Basophil % 0.6 % 0-2 Nucleated Red Blood Cells % 0.7 Hemoglobin/Hematacrit 10/04/2017 [facility] Hemoglobin 17.5 14.0-18.0 [phone] g/dL Hematocrit 52 % 42-52 Laboratory test 04/26/2017 [facility] Rheumatoid Factor <15 IU/mL <15 12 finding [phone] Erythrocyte Sed Rate 0 mm/Hr 0-20 13 C Reactive Protein 18.21 mg/L High < 5.00 14 Lyme Western 04/26/2017 [facility] Lyme Disease Negative Negative Blot [phone] IgG Ab WB Lyme Disease IgG Bands Present No bands detecte <SEE NOTE> kDa 15 Lyme Disease IgM Ab WB Negative Negative Lyme Disease IgM Bands Present No bands detecte <SEE NOTE> kDa 16 Lyme Disease Interpretation See Comment 17 Tick-Borne Panel 04/26/2017 [facility] Babesia Negative Negative PCR Blood [phone] microti PCR Babesia ducani Negative Negative Babesia divergens/Mo-1 Negative Negative 18 Anaplasma phagocytophilum Negative Negative Ehrlichia chaffeensis Negative Negative Ehrlichia ewingii/canis Negative Negative Ehrlichia muris-like Negative Negative 19 B. miyamotoi PCR, B Negative Negative 20 CBC Auto Diff 04/26/2017 [facility] White Blood 9.5 10^3/uL 3.5-10.8 [phone] Count Red Blood Count 6.50 10^6/uL High 4.0-5.4 Hemoglobin 19.8 g/dL High 14.0-18.0 Hematocrit 61 % High 42-52 21 Mean Corpuscular Volume 94 fL 80-94 Mean Corpuscular Hemoglobin 31 pg 27-31 Mean Corpuscular HGB Conc 33 g/dL 31-36 Red Cell Distribution Width 15 % 10.5-15 Platelet Count 206 10^3/uL 150-450 Mean Platelet Volume 9 um3 7.4-10.4 Abs Neutrophils 6.2 10^3/uL 1.5-7.7 Abs Lymphocytes 1.8 10^3/uL 1.0-4.8 Abs Monocytes 1.2 10^3/uL High 0-0.8 Abs Eosinophils 0.2 10^3/uL 0-0.6 Abs Basophils 0.1 10^3/uL 0-0.2 Abs Nucleated RBC 0.08 10^3/uL Granulocyte % 65.2 % 38-83 Lymphocyte % 19.2 % Low 25-47 Monocyte % 12.7 % High 1-9 Eosinophil % 2.2 % 0-6 Basophil % 0.7 % 0-2 Nucleated Red Blood Cells % 0.9 Comp Metabolic Panel 04/26/2017 [facility] Sodium 137 mmol/L 133-145 [phone] Potassium 4.3 mmol/L 3.5-5.0 Chloride 104 mmol/L 101-111 Co2 Carbon Dioxide 27 mmol/L 22-32 Anion Gap 6 mmol/L 2-11 Glucose 70 mg/dL 70-100 Blood Urea Nitrogen 18 mg/dL 6-24 Creatinine 0.97 mg/dL 0.67-1.17 BUN/Creatinine Ratio 18.6 8-20 Calcium 9.1 mg/dL 8.6-10.3 Total Protein 6.4 g/dL 6.4-8.9 Albumin 4.0 g/dL 3.2-5.2 Globulin 2.4 g/dL 2-4 Albumin/Globulin Ratio 1.7 1-3 Total Bilirubin 0.50 mg/dL 0.2-1.0 Alkaline Phosphatase 71 U/L 34-104 Alt 25 U/L 7-52 Ast 17 U/L 13-39 Egfr Non- 81.3 >60 Egfr 104.5 >60 22 Laboratory test 04/26/2017 [facility] TSH (Thyroid 2.01 mcIU/mL 0.34-5.60 23 finding [phone] Stim Horm) Lyme Disease Serology Negative Negative 24 Vitamin D, 1,25 Dihydroxy 33 pg/mL 18-64 25 Laboratory test 03/08/2017 [facility] Surgical SEE RESULT 26, 27 finding [phone] Pathology BELOW Comp Metabolic 09/22/2016 [facility] Sodium 135 mmol/ L 133-1 Panel [phone] Potassium 4.5 mmol/L 3.5-5.0 Chloride 102 mmol/L 101-111 Co2 Carbon Dioxide 27 mmol/L 22-32 Anion Gap 6 mmol/L 2-11 Glucose 89 mg/dL 70-100 Blood Urea Nitrogen 10 mg/dL 6-24 Creatinine 0.89 mg/dL 0.67-1.17 BUN/Creatinine Ratio 11.2 8-20 Calcium 9.5 mg/dL 8.6-10.3 Total Protein 6.8 g/dL 6.4-8.9 Albumin 3.9 g/dL 3.2-5.2 Globulin 2.9 g/dL 2-4 Albumin/Globulin Ratio 1.3 1-3 Total Bilirubin 0.40 mg/dL 0.2-1.0 Alkaline Phosphatase 67 U/L 34-104 Alt 33 U/L 7-52 Ast 26 U/L 13-39 Egfr Non- 89.8 >60 Egfr 115.4 >60 28 Laboratory test 09/22/2016 [facility] Troponin-I 0.00 ng/mL <0.04 29 finding [phone] (TnI) CBC Auto Diff 09/22/2016 [facility] White Blood 10.2 3.5-10.8 [phone] Count 10^3/uL Red Blood Count 6.45 10^6/uL High 4.0-5.4 Hemoglobin 19.0 g/dL High 14.0-18.0 Hematocrit 57 % High 42-52 Mean Corpuscular Volume 88 fL 80-94 Mean Corpuscular Hemoglobin 30 pg 27-31 Mean Corpuscular HGB Conc 34 g/dL 31-36 Red Cell Distribution Width 14 % 10.5-15 Platelet Count 216 10^3/uL 150-450 Mean Platelet Volume 8 um3 7.4-10.4 Abs Neutrophils 7.3 10^3/uL 1.5-7.7 Abs Lymphocytes 1.7 10^3/uL 1.0-4.8 Abs Monocytes 1.0 10^3/uL High 0-0.8 Abs Eosinophils 0.1 10^3/uL 0-0.6 Abs Basophils 0.1 10^3/uL 0-0.2 Abs Nucleated RBC 0.01 10^3/uL Granulocyte % 71.5 % 38-83 Lymphocyte % 16.4 % Low 25-47 Monocyte % 10.0 % High 1-9 Eosinophil % 1.3 % 0-6 Basophil % 0.8 % 0-2 Nucleated Red Blood Cells % 0 Laboratory test 09/22/2016 [facility] Lactic Acid 1.5 mmol/L 0.5-2.0 30 finding [phone] Reactive Protein 3.48 mg/L < 5.00 31 Laboratory test 06/15/2016 [facility] Surgical Pathology SEE RESULT 32 finding [phone] BELOW Lipid Profile 10/16/2015 [facility] Triglycerides 189 mg/dL 33 (Trig/Chol/HDL) [phone] Cholesterol 180 mg/dL 34 HDL Cholesterol 45.6 mg/dL 35 LDL Cholesterol 97 mg/dL 36 Comp Metabolic Panel 10/16/2015 [facility] Sodium 139 mmol/L 133-145 [phone] Potassium 4.8 mmol/L 3.5-5.0 Chloride 102 mmol/L 101-111 Co2 Carbon Dioxide 30 mmol/L 22-32 Anion Gap 7 mmol/L 2-11 Glucose 77 mg/dL 70-100 Blood Urea Nitrogen 14 mg/dL 6-24 Creatinine 0.88 mg/dL 0.67-1.17 BUN/Creatinine Ratio 15.9 8-20 Calcium 9.7 mg/dL 8.6-10.3 Total Protein 7.0 g/dL 6.4-8.9 Albumin 4.5 g/dL 3.2-5.2 Globulin 2.5 g/dL 2-4 Albumin/Globulin Ratio 1.8 1-3 Total Bilirubin 0.40 mg/dL 0.2-1.0 Alkaline Phosphatase 65 U/L 34-104 Alt 30 U/L 7-52 Ast 19 U/L 13-39 Egfr Non- 91.3 >60 Egfr 117.4 >60 37 Laboratory test 10/16/2015 [facility] Hemoglobin A1c 5.3 % Less than 38 finding [phone] (Glyco HGB) 6.0 CBC Auto Diff 10/16/2015 [facility] White Blood 8.7 3.5-10.8 [phone] Count 10^3/uL Red Blood Count 5.76 10^6/uL High 4.0-5.4 Hemoglobin 17.4 g/dL 14.0-18.0 Hematocrit 53 % High 42-52 Mean Corpuscular Volume 92 fL 80-94 Mean Corpuscular Hemoglobin 30 pg 27-31 Mean Corpuscular HGB Conc 33 g/dL 31-36 Red Cell Distribution Width 14 % 10.5-15 Platelet Count 201 10^3/uL 150-450 Mean Platelet Volume 8 um3 7.4-10.4 Abs Neutrophils 5.9 10^3/uL 1.5-7.7 Abs Lymphocytes 1.8 10^3/uL 1.0-4.8 Abs Monocytes 0.7 10^3/uL 0-0.8 Abs Eosinophils 0.2 10^3/uL 0-0.6 Abs Basophils 0 10^3/uL 0-0.2 Abs Nucleated RBC 0.05 10^3/uL Granulocyte % 67.7 % 38-83 Lymphocyte % 21.3 % Low 25-47 Monocyte % 8.3 % 1-9 Eosinophil % 2.1 % 0-6 Basophil % 0.6 % 0-2 Nucleated Red Blood Cells % 0.6 Lipid Profile 05/28/2014 [facility] Triglycerides 119 mg/dL 39 (Trig/Chol/HDL) [phone] Cholesterol 149 mg/dL 40 HDL Cholesterol 36.3 mg/dL 41 LDL Cholesterol 89 mg/dL 42 Comp Metabolic Panel 11/24/2013 [facility] Sodium 136 mmol/L 133-145 [phone] Potassium 4.3 mmol/L 3.5-5.0 Chloride 100 mmol/L Low 101-111 Co2 Carbon Dioxide 28.0 mmol/L 22-32 Anion Gap 8.0 mmol/L 2-11 Glucose 79 mg/dL 70-100 Blood Urea Nitrogen 13 mg/dL 6-24 Creatinine 0.90 mg/dL 0.50-1.40 BUN/Creatinine Ratio 14.4 8-20 Calcium 9.5 mg/dL 8.1-9.9 Total Protein 6.4 g/dL 6.2-8.1 Albumin 4.4 g/dL 3.6-5.4 Globulin 2.0 g/dL 2-4 Albumin/Globulin Ratio 2.2 1-3 Total Bilirubin 1.0 mg/dL 0.4-1.5 Alkaline Phosphatase 72 U/L 30-110 Alt 49 U/L 14-54 Ast 23 U/L 12-42 Egfr Non- 89.7 >60 Egfr 115.3 >60 43 Lipid Profile 11/24/2013 [facility] Triglycerides 181 mg/dL 40-200 (Trig/Chol/HDL) [phone] Cholesterol 199 mg/dL Less than 200 HDL Cholesterol 47 mg/dL 40-60 44 Cholesterol/HDL Ratio 4.2 Average 1-4.44 LDL Cholesterol 115.8 High Less Than 100 45 Laboratory test 11/24/2013 [facility] Hemoglobin A1c 5.3 % Less than 46 finding [phone] 6.0 Clomipramine 11/24/2013 [facility] Clomipramine 103 70 - 200 [phone] ng/ml Desmethylclomipramine 203 ng/ml 150 - 300 47 Basic Metabolic 11/03/2013 [facility] Sodium 139 mmol /L 133-145 Panel [phone] Potassium 4.6 mmol/L 3.5-5.0 Chloride 103 mmol/L 101-111 Co2 Carbon Dioxide 27.0 mmol/L 22-32 Anion Gap 9.0 mmol/L 2-11 Glucose 63 mg/dL Low 70-100 Blood Urea Nitrogen 16 mg/dL 6-24 Creatinine 0.80 mg/dL 0.50-1.40 BUN/Creatinine Ratio 20.0 8-20 Calcium 9.5 mg/dL 8.1-9.9 Egfr Non- 102.7 >60 Egfr 132.1 >60 48 CBC Auto Diff 11/03/2013 [facility] White Blood 10.7 10^3/uL 4.8-10.8 [phone] Count Red Blood Count 6.05 10^6/uL High 4.0-5.4 Hemoglobin 18.5 g/dL High 14.0-18.0 Hematocrit 54 % High 42-52 Mean Corpuscular Volume 88 fL 80-94 Mean Corpuscular Hemoglobin 31 pg 27-31 Mean Corpuscular HGB Conc 35 g/dL 31-36 Red Cell Distribution Width 14 % 10.5-15 Platelet Count 210 10^3/uL 150-450 Mean Platelet Volume 9 um3 7.4-10.4 Abs Neutrophils 7.0 10^3/uL 1.5-7.7 Abs Lymphocytes 2.4 10^3/uL 1.0-4.8 Abs Monocytes 1.2 10^3/uL High 0-0.8 Abs Eosinophils 0.1 10^3/uL 0-0.6 Abs Basophils 0.1 10^3/uL 0-0.2 Abs Nucleated RBC 0.01 10^3/uL Statin 11/03/2013 [facility] Ast 22 U/L 12-42 [phone] Alt 47 U/L 14-54 Lipid Profile 11/03/2013 [facility] Triglycerides 162 mg/dL 40-200 (Trig/Chol/HDL) [phone] Cholesterol 184 mg/dL Less than 200 HDL Cholesterol 45 mg/dL 40-60 49 Cholesterol/HDL Ratio 4.1 Average 1-4.44 LDL Cholesterol 106.6 High Less Than 100 50 Manual Differential 11/03/2013 [facility] Neutrophil % 73 % 38-83 [phone] Band % 1 % 0-8 Lymphocytes % 17 % Low 25-47 Monocytes % 9 % 0-13 RBC Morphology Normal Normal Laboratory test 08/02/2013 In House Lab Strep Screen neg Neg finding [phone] CBC Auto Diff 06/30/2013 [facility] White Blood 9.5 10^3/uL 4.8-10.8 [phone] Count Red Blood Count 6.26 10^6/uL High 4.0-5.4 Hemoglobin 18.2 g/dL High 14.0-18.0 Hematocrit 57 % High 42-52 Mean Corpuscular Volume 91 fL 80-94 Mean Corpuscular Hemoglobin 29 pg 27-31 Mean Corpuscular HGB Conc 32 g/dL 31-36 Red Cell Distribution Width 14 % 10.5-15 Platelet Count 220 10^3/uL 150-450 Mean Platelet Volume 9 um3 7.4-10.4 Abs Neutrophils 6.0 10^3/uL 1.5-7.7 Abs Lymphocytes 2.3 10^3/uL 1.0-4.8 Abs Monocytes 1.0 10^3/uL High 0-0.8 Abs Eosinophils 0.2 10^3/uL 0-0.6 Abs Basophils 0.1 10^3/uL 0-0.2 Abs Nucleated RBC 0 10^3/uL Basic Metabolic 06/30/2013 [facility] Sodium 136 mmol /L 133-145 Panel [phone] Potassium 4.5 mmol/L 3.5-5.0 Chloride 105 mmol/L 101-111 Co2 Carbon Dioxide 24.0 mmol/L 22-32 Anion Gap 7.0 mmol/L 2-11 Glucose 82 mg/dL 70-100 Blood Urea Nitrogen 16 mg/dL 6-24 Creatinine 0.80 mg/dL 0.50-1.40 BUN/Creatinine Ratio 20.0 8-20 Calcium 9.3 mg/dL 8.1-9.9 Egfr Non- 103.2 >60 Egfr 132.7 >60 51 Lipid Profile 06/30/2013 [facility] Triglycerides 125 mg/dL 40-200 (Trig/Chol/HDL) [phone] Cholesterol 167 mg/dL Less than 200 HDL Cholesterol 36 mg/dL Low 40-60 52 Cholesterol/HDL Ratio 4.6 Average High 1-4.44 LDL Cholesterol 106.0 High Less Than 100 53 Statin 06/30/2013 [facility] Ast 24 U/L 12-42 [phone] Alt 48 U/L 14-54 Manual Differential 06/30/2013 [facility] Neutrophil % 54 % 38-83 [phone] Lymphocytes % 35 % 25-47 Monocytes % 5 % 0-13 Eosinophils % 1 % 0-6 Basophil % 1 % 0-2 Reactive Lymph % 4 % 0-6 RBC Morphology Normal Normal Basic Metabolic 02/27/2013 [facility] Sodium 139 mmol /L 133-145 Panel [phone] Potassium 4.6 mmol/L 3.5-5.0 Chloride 104 mmol/L 101-111 Co2 Carbon Dioxide 28.0 mmol/L 22-32 Anion Gap 7.0 mmol/L 2-11 Glucose 86 mg/dL 70-100 Blood Urea Nitrogen 15 mg/dL 6-24 Creatinine 0.90 mg/dL 0.50-1.40 BUN/Creatinine Ratio 16.7 8-20 Calcium 9.8 mg/dL 8.1-9.9 Egfr Non- 90.1 >60 Egfr 115.8 >60 54 Statin 02/27/2013 [facility] Ast 23 U/L 12-42 [phone] Alt 47 U/L 14-54 Lipid Profile 02/27/2013 [facility] Triglycerides 134 mg/dL 40-200 (Trig/Chol/HDL) [phone] Cholesterol 158 mg/dL Less than 200 HDL Cholesterol 35 mg/dL Low 40-60 55 Cholesterol/HDL Ratio 4.5 Average High 1-4.44 LDL Cholesterol 96.2 mg/dL Less Than 100 56 1 [id number] Desirable: <150 Borderline High: 150-199 High: 200-499 Very High: >500 4 Desirable: <200 Borderline High: 200-239 High: >239 5 Low: <40 Desirable: 40-60 High: >60 6 Desirable: <100 Near Optimal: 100-129 Borderline High: 130-159 High: 160-189 Very High: >189 7 [id number] Because ethnic data is not always readily available, this report includes an eGFR for both -Americans and non- Americans. The National Kidney Disease Education Program (NKDEP) does not endorse the use of the MDRD equation for patients that are not between the ages of 18 and 70, are , have extremes of body size, muscle mass, or nutritional status, or are non- or non-. According to the National Kidney Foundation, irrespective of diagnosis, the stage of the disease is based on the level of kidney function: Stage Description GFR(mL/min/1.73 m(2)) 1 Kidney damage with normal or decreased GFR 90 2 Kidney damage with mild decrease in GFR 60-89 3 Moderate decrease in GFR 30-59 4 Severe decrease in GFR 15-29 5 Kidney failure <15 (or dialysis) 9 Acute inflammation: >10.00 10 [facility] Severe Sepsis and Septic Shock Management Bundle Measure requires all lactic acids initially measuring >2.0 mmol/L be repeated. 11 SEE RESULT BELOW Name: LISA BARON : [address]: Marge Trujillo MD Acct: [id number] Unit: [id number] AGE: 52 Location: ED Re01/06/18 SEX: M Status: DEP ER SPEC: [id number] KAY: 01/06/[address] [facility] [address]: Marge Trujillo MD REQ: [id number] RECD: 01/06/18 STATUS: RADHA JAUREGUI DR: Delfina Tidwell OUTSIDE RIGGER _ SOURCE: NO SOURCE SPDESC: ORDERED: Blood Cult Procedure Result Reported Site Aerobic Culture Bottle Final 01/11/18338 ML No Growth Day 5 Anaerobic Culture Bottle Final 01/11/18338 ML No Growth Day 5 * ML - Main Lab . END OF REPORT DEPARTMENT OF PATHOLOGY, [address] [place] [address] Brennen Patel M.D. Director [facility] # [id number] 12 Test Performed by: [address] [address] 13 [id number] Acute inflammation: >10.00 15 No bands detected 16 No bands detected 17 Specific serologic response to B. burgdorferi infection is not detected, but cannot rule out early infection during which low or undetectable antibody levels to B. burgdorferi may be present. If clinically indicated, a new serum specimen should be submitted in 7-14 days. ADDITIONAL INFORMATION CDC criteria require >=5 bands for IgG or >=2 bands for IgM for the Immunoblot to be considered positive. Bands (e.g.,p41) may be detected in patients without Lyme disease, and patterns not meeting the CDC criteria should be interpreted with caution. Immunoblot should be ordered only on specimens that are positive or equivocal by a FDA-licensed Lyme disease antibody screening test (e.g., EIA). Test Performed by: [facility] - [address] [address] 18 ADDITIONAL INFORMATION This test was developed and its performance characteristics determined by [facility] in a manner consistent with CLIA requirements. This test has not been cleared or approved by the U.S. Food and Drug Administration. 19 ADDITIONAL INFORMATION This test was developed and its performance characteristics determined by [facility] in a manner consistent with CLIA requirements. This test has not been cleared or approved by the U.S. Food and Drug Administration. 20 ADDITIONAL INFORMATION This test was developed and its performance characteristics determined by [facility] in a manner consistent with CLIA requirements. This test has not been cleared or approved by the U.S. Food and Drug Administration. Test Performed by: [facility] - [address] [address] 21 Consistent with previous results on 09/22/16. 22 Because ethnic data is not always readily available, this report includes an eGFR for both -Americans and non- Americans. The National Kidney Disease Education Program (NKDEP) does not endorse the use of the MDRD equation for patients that are not between the ages of 18 and 70, are , have extremes of body size, muscle mass, or nutritional status, or are non- or non-. According to the National Kidney Foundation, irrespective of diagnosis, the stage of the disease is based on the level of kidney function: Stage Description GFR(mL/min/1.73 m(2)) 1 Kidney damage with normal or decreased GFR 90 2 Kidney damage with mild decrease in GFR 60-89 3 Moderate decrease in GFR 30-59 4 Severe decrease in GFR 15-29 5 Kidney failure <15 (or dialysis) 23 [id number] 24 Serologic response to B. burgdorferi infection is not detected, but cannot rule out early infection during which low or undetectable antibody levels to B. burgdorferi may be present. If clinically indicated, a new serum specimen should be submitted in 7-14 days. Test Performed by: [facility] - [address] [address] 25 ADDITIONAL INFORMATION This test was developed and its performance characteristics determined by [facility] in a manner consistent with CLIA requirements. This test has not been cleared or approved by the U.S. Food and Drug Administration. Test Performed by: [facility] - [address] [address] 26 Referred to dermatology 27 SEE RESULT BELOW Name: LISA BARON : [address]: Lauri Aly MD Acct: [id number] Unit: [id number] AGE: 51 Location: [facility] Re03/08/17 SEX: M Status: REG REF SPEC: [id number] KAY: 03/08/[address] [facility] [address]: Lauri Aly MD REQ: [id number] RECD: 03/08/17 STATUS: SOUT _ ORDERED: LEVEL 4 COMMENTS: [id number] FINAL DIAGNOSIS Skin, right cheek, biopsy: -- Basal cell carcinoma, superficial and nodular type, ulcerated. -- Lesional cells extend to one lateral specimen edge. CLINICAL HISTORY No history given GROSS DESCRIPTION The specimen is received in formalin labeled, Right Cheek Punch Biopsy, and consists of a 0.6 cm bahena-brown bosselated hairbearing skin punch excised to a depth of 0.4 cm which is bisected and entirely submitted in one cassette. Signed (signature on file) Nereida Mcintyre MD 0949 END OF REPORT * ML=Testing performed at Main Lab DEPARTMENT OF PATHOLOGY, [address] [place] [address] Brennen Patel M.D. Director [facility] # [id number] 28 Because ethnic data is not always readily available, this report includes an eGFR for both -Americans and non- Americans. The National Kidney Disease Education Program (NKDEP) does not endorse the use of the MDRD equation for patients that are not between the ages of 18 and 70, are , have extremes of body size, muscle mass, or nutritional status, or are non- or non-. According to the National Kidney Foundation, irrespective of diagnosis, the stage of the disease is based on the level of kidney function: Stage Description GFR(mL/min/1.73 m(2)) 1 Kidney damage with normal or decreased GFR 90 2 Kidney damage with mild decrease in GFR 60-89 3 Moderate decrease in GFR 30-59 4 Severe decrease in GFR 15-29 5 Kidney failure <15 (or dialysis) 29 NOTE: Critical Troponin is now >0.03 ng/mL. 99th percentile=0.04 ng/mL Troponin results at [facility] and [facility] are not interchangeable. 30 [facility] Severe Sepsis and Septic Shock Management Bundle Measure requires all lactic acids initially measuring >2.0 mmol/L be repeated. 31 Acute inflammation: >10.00 32 SEE RESULT BELOW Name: LISA BARON : [address]: Lauri Aly MD Acct: [id number] Unit: [id number] AGE: 50 Location: [facility] Re06/15/16 SEX: M Status: REG REF SPEC: [id number] KAY: 06/15/16-[address]: Lauri Aly MD REQ: [id number] RECD: 06/15/16-1207 STATUS: SOUT _ ORDERED: LEVEL III FINAL DIAGNOSIS Skin, site unspecified, excision: -- Epidermal inclusion cyst. CLINICAL HISTORY Present several months, is recurrent. PRE-OPERATIVE DIAGNOSIS Sebaceous cyst GROSS DESCRIPTION The specimen is received in formalin with no source identified, with a requisition labeled, Sebaceous Cyst, and consists of a 0.8 x 0.5 by 0.3 cm white indurated soft tissue fragment. The cut surface is a heterogeneous yellow-white mixture. The specimen is inked, trisected and entirely submitted in one cassette. Signed (signature on file) Brennen Patel MD 1303 END OF REPORT * ML=Testing performed at Main Lab DEPARTMENT OF PATHOLOGY, [address] [place] [address] Brennen Patel M.D. Director [facility] # [id number] 33 Desirable <150 Borderline high 150-199 High 200-499 Very High >500 34 Desirable <200 Borderline high 200-239 High >239 35 Low <40 Desirable: 40-60 High: >60 36 Desirable: <100 mg/dL Near Optimal: 100-129 mg/dL Borderline High: 130-159 mg/dL High: 160-189 mg/dL Very High: >189 mg/dL 37 Because ethnic data is not always readily available, this report includes an eGFR for both -Americans and non- Americans. The National Kidney Disease Education Program (NKDEP) does not endorse the use of the MDRD equation for patients that are not between the ages of 18 and 70, are , have extremes of body size, muscle mass, or nutritional status, or are non- or non-. According to the National Kidney Foundation, irrespective of diagnosis, the stage of the disease is based on the level of kidney function: Stage Description GFR(mL/min/1.73 m(2)) 1 Kidney damage with normal or decreased GFR 90 2 Kidney damage with mild decrease in GFR 60-89 3 Moderate decrease in GFR 30-59 4 Severe decrease in GFR 15-29 5 Kidney failure <15 (or dialysis) 38 Therapeutic target for the treatment of diabetes Mellitus patients is <7% HBA1C, and in selective patients <6.0%.Please refer to [place] [employer] Diabetic care guidelines for further information. 39 Desirable <150 Borderline high 150-199 High 200-499 Very High >500 40 Desirable <200 Borderline high 200-239 High >239 41 Low <40 Desirable: 40-60 High: >60 42 Desirable <100 Near Optimal 100-129 Borderline high 130-159 High 160-189 Very High >189 43 Because ethnic data is not always readily available, this report includes an eGFR for both -Americans and non- Americans. The National Kidney Disease Education Program (NKDEP) does not endorse the use of the MDRD equation for patients that are not between the ages of 18 and 70, are , have extremes of body size, muscle mass, or nutritional status, or are non- or non-. According to the National Kidney Foundation, irrespective of diagnosis, the stage of the disease is based on the level of kidney function: Stage Description GFR(mL/min/1.73 m(2)) 1 Kidney damage with normal or decreased GFR 90 2 Kidney damage with mild decrease in GFR 60-89 3 Moderate decrease in GFR 30-59 4 Severe decrease in GFR 15-29 5 Kidney failure <15 (or dialysis) 44 HDL Interpretation: Undesirable: High Risk: Less than 40 mg/dL Desirable: Low Risk: Greater than 60 mg/dL 45 LDL Interpretation: Low Risk Optimal Level: LDL Less than 100 mg/dL Near or Above Optimal: LDL 100-129 mg/dL Borderline High Risk: LDL 130-159 mg/dL High Risk: LDL 160-189 mg/dL Very High Risk: LDL Greater than 189 mg/dL 46 Therapeutic target for the treatment of diabetes Mellitus patients is <7% HBA1C, and in selective patients <6.0%.Please refer to [place] [employer] Diabetic care guidelines for further information. 47 Desired clomipramine concentrations for the treatment of chronic pain: 20 - 85 ng/ml. Test Performed by: [employer]. [address] [place] [id number] 48 Because ethnic data is not always readily available, this report includes an eGFR for both -Americans and non- Americans. The National Kidney Disease Education Program (NKDEP) does not endorse the use of the MDRD equation for patients that are not between the ages of 18 and 70, are , have extremes of body size, muscle mass, or nutritional status, or are non- or non-. According to the National Kidney Foundation, irrespective of diagnosis, the stage of the disease is based on the level of kidney function: Stage Description GFR(mL/min/1.73 m(2)) 1 Kidney damage with normal or decreased GFR 90 2 Kidney damage with mild decrease in GFR 60-89 3 Moderate decrease in GFR 30-59 4 Severe decrease in GFR 15-29 5 Kidney failure <15 (or dialysis) 49 HDL Interpretation: Undesirable: High Risk: Less than 40 mg/dL Desirable: Low Risk: Greater than 60 mg/dL 50 LDL Interpretation: Low Risk Optimal Level: LDL Less than 100 mg/dL Near or Above Optimal: LDL 100-129 mg/dL Borderline High Risk: LDL 130-159 mg/dL High Risk: LDL 160-189 mg/dL Very High Risk: LDL Greater than 189 mg/dL 51 Because ethnic data is not always readily available, this report includes an eGFR for both -Americans and non- Americans. The National Kidney Disease Education Program (NKDEP) does not endorse the use of the MDRD equation for patients that are not between the ages of 18 and 70, are , have extremes of body size, muscle mass, or nutritional status, or are non- or non-. According to the National Kidney Foundation, irrespective of diagnosis, the stage of the disease is based on the level of kidney function: Stage Description GFR(mL/min/1.73 m(2)) 1 Kidney damage with normal or decreased GFR 90 2 Kidney damage with mild decrease in GFR 60-89 3 Moderate decrease in GFR 30-59 4 Severe decrease in GFR 15-29 5 Kidney failure <15 (or dialysis) 52 HDL Interpretation: Undesirable: High Risk: Less than 40 mg/dL Desirable: Low Risk: Greater than 60 mg/dL 53 LDL Interpretation: Low Risk Optimal Level: LDL Less than 100 mg/dL Near or Above Optimal: LDL 100-129 mg/dL Borderline High Risk: LDL 130-159 mg/dL High Risk: LDL 160-189 mg/dL Very High Risk: LDL Greater than 189 mg/dL 54 Because ethnic data is not always readily available, this report includes an eGFR for both -Americans and non- Americans. The National Kidney Disease Education Program (NKDEP) does not endorse the use of the MDRD equation for patients that are not between the ages of 18 and 70, are , have extremes of body size, muscle mass, or nutritional status, or are non- or non-. According to the National Kidney Foundation, irrespective of diagnosis, the stage of the disease is based on the level of kidney function: Stage Description GFR(mL/min/1.73 m(2)) 1 Kidney damage with normal or decreased GFR 90 2 Kidney damage with mild decrease in GFR 60-89 3 Moderate decrease in GFR 30-59 4 Severe decrease in GFR 15-29 5 Kidney failure <15 (or dialysis) 55 HDL Interpretation: Undesirable: High Risk: Less than 40 MG/DL Desirable: Low Risk: Greater than 60 MG/DL 56 LDL Interpretation: Low Risk Optimal Level: LDL Less than 100 MG/DL Near or Above Optimal: LDL 100-129 MG/DL Borderline High Risk: LDL 130-159 MG/DL High Risk: LDL 160-189 MG/DL Very High Risk: LDL Greater than 189 MG/DL Procedures Date Code Description Status 05/11/2018 60842 EKG, at Least 12 Leads w/Interpretation and Report Completed 03/08/2017 50203 Destruction,Premalignant Lesion,1St Lesion Completed 03/08/2017 66036 BX Of Skin,Tissue, Mucous Membran Completed 10/21/2016 89461 EKG, at Least 12 Leads w/Interpretation and Report Completed 06/15/2016 92345 Excision Of Lesion (Trunk,Arm,Leg) .6 To 1 CM. Completed 07/16/2014 46875 Incision Of Thrombosed Hemorrhoid,External Completed 11/24/2013 33925 EKG, at Least 12 Leads w/Interpretation and Report Completed Encounters Type Date Location Provider Dx Diagnosis Office Visit 05/27/2018 Main Office Lauri Aly, S64.02xA Injury of ulnar 11:45a nerve at [facility] lv of left arm, init Office Visit 05/11/2018 Main Office Lauri Aly, K13.79 Other lesions of 9:30a oral mucosa Z01.818 Encounter for other preprocedural examination L02.31 Cutaneous abscess of buttock Office Visit 03/14/2018 5:15p Main Office Lauri Aly B37.2 Candidiasis of skin and nail Office Visit 02/18/2018 1:45p Main Office Lauri Aly K13.79 Other lesions of oral mucosa L30.9 Dermatitis, unspecified Office Visit 02/04/2018 4:30p Main Office Ninfa Naylor64.9 Unspecified Storm, COMPUTER [employer]WORK [employer] SYSTEM[employer] ENGINEER-C hemorrhoids Office Visit 11/05/2017 2:00p Main Office Lauri M79.671 Pain in right foot MD Sheeba Office Visit 09/15/2017 1:00p Main Office Lauri L30.4 Erythema intertrigo MD Sheeba Office Visit 05/05/2017 11:30a Main Office Delfina Tidwell, 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, right ankle and foot R71.8 Other abnormality of red blood cells Office Visit 04/26/2017 3:00p Main Office Delfina Tidwell M79.671 Pain in right [employer]WORK [employer] ENGINEER-C foot E07.9 Disorder of thyroid, unspecified Office Visit 03/30/2017 9:45a Main Office Delfina Tidwell M79.671 Pain in right [employer]PUT[employer] ENGINEER-C foot Office Visit 03/23/2017 8:45a Main Office Tom Burger R05 Cough III, COMPUT[employer] SYSTEM[employer] ENGINEER-C Office Visit 03/08/2017 2:15p Main Office Lauri Aly, D48.5 Neoplasm of uncertain behavior of skin L57.0 Actinic keratosis S63.610A Unspecified sprain of right index finger, initial encounter Office Visit 03/03/2017 11:00a Main Office Delfina Tidwell, M72.2 Plantar fascial [employer]ER-C fibromatosis Office Visit 02/09/2017 9:15a Main Office Delfina Tidwell, R23.8 Other skin changes [employer] ENGINEER-C Office Visit 12/21/2016 10:45a Main Office Delfina Tidwell, L84 Corns and [employer]INEER-C callosities Office Visit 12/01/2016 3:45p Main Office Tom Burgre H65.02 Acute serous otitis III, COMPUT[employer] ENGINEER-C media, left ear Office Visit 11/25/2016 3:00p Main Office Delfina Tidwell, L05.91 Pilonidal cyst [employer] ENGINEER-C without abscess K12.1 Other forms of stomatitis Office Visit 10/21/2016 9:15a Main Office Delfina Tidwell, J30.89 Other allergic [employer]ER-C rhinitis Office Visit 09/14/2016 11:15a Main Office Delfina Tidwell, S40.861A Insect bite [employer] ENGINEER-C (nonvenomous) of right upper arm, init encntr Office Visit 08/18/2016 9:00a Main Office Tom Burger L30.9 Dermatitis , III, COMPUT[employer] SYSTEMS ENGINEER-C unspecified Office Visit 06/16/2016 11:30a Main Office Tom Burger K12.2 Cellulitis and III, COMPUT[employer] SYSTEM[employer] ENGINEER-C abscess of mouth Office Visit 06/09/2016 9:00a Main Office Tom Burger L08.9 Local infection of III, COMPUT[employer]WORK [employer] SYSTEMS ENGINEER-C the skin and subcutaneous tissue, unsp Office Visit 11/20/2015 9:30a Main Office Delfina Tidwell, Z00.00 Encntr for general COM[employer] ENGINEER-C adult medical exam w/o abnormal findings Office Visit 11/04/2015 2:30p Main Office Lauri L30.9 DermatitisSheeba MD unspecified Office Visit 10/16/2015 11:15a Main Office Delfina Tidwell, I10 Essential [employer] SYSTEMS ENGINEER-C (primary) hypertension E78.5 Hyperlipidemia, unspecified R46.81 Obsessive-compulsive behavior M54.5 Low back pain Office Visit 10/09/2015 4:15p Main Office Lauri M54.5 Low back pain MD Sheeba Office Visit 09/23/2015 4:45p Main Office Ninfa Carter J30.9 Allergic rhinitis, Storm, COMPUT[employer] SYSTEMS ENGINEER-C unspecified Office Visit 10/11/2014 12:15p Main Office Delfina Tidwell, 110.9 Dermatophytosis COMPUT[employer] SYSTEM[employer] ENGINEER-C Unspec Site Office Visit 07/27/2014 10:30a Main Office Delfina Tidwell, 455.4 Hemorrhoids External [employer]PUT[employer] SYSTEMS ENGINEER-C Thrombosed Office Visit 06/04/2014 9:15a Main Office Delfina Tidwell, 401.9 Hypertension Unspec [employer] SYSTEM[employer] ENGINEER-C Office Visit 05/04/2014 9:00a Main Office Delfina Tidwell, 401.9 Hypertension Unspec COM[employer]WORK AND SYSTEMS ENGINEER-C 272.4 Hyperlipidemia Other Unspec Office Visit 02/20/2014 9:30a Main Office Delfina Tidwell, 455.3 Hemorrhoids COMPUT[employer] ENGINEER-C External W/O Complication Office Visit 11/03/2013 8:45a Main Office Delfina Tidwell, 401.9 Hypertension Unspec [employer]PUT[employer]WORK AND SYSTEMS ENGINEER-C 272.4 Hyperlipidemia Other Unspec V04.81 Need For Prophylactic Vaccination & Inoculation/Influenza Office Visit 08/31/2013 12:00p Main Office Ninfa Carter 682.8 Cellulitis & Abscess Storm, COMPUTER [employer]WORK AND SYSTEMS ENGINEER-C Other Spec Sites Office Visit 08/28/2013 10:00a Main Office Delfina Tidwell, 307.49 Sleep Disorder Other [employer] SYSTEM[employer] ENGINEER-C Office Visit 08/02/2013 11:30a Main Office Delfina Tidwell, 786.2 Cough COMPUTER [employer]WORK [employer] SYSTEMS ENGINEER-C Office Visit 06/30/2013 9:00a Main Office Delfina Tidwell, 401.9 Hypertension Unspec COMPUTER [employer]WORK AND SYSTEMS ENGINEER-C 272.4 Hyperlipidemia Other Unspec Office Visit 05/11/2013 12:15p Main Office Lisa Evans, 110.3 Dermatophytosis Groin M.DGarland & Perianal Area Office Visit 02/27/2013 9:00a Main Office Delfina 401.9 Hypertension Unspec Keaton, COMPUTER [employer]WORK AND SYSTEMS ENGINEER-C 786.2 Cough Office Visit 11/28/2012 10:00a Main Office Delfina Tidwell COMPUTER NETWORK AND SYSTEMS ENGINEER-C 786.2 Cough 401.9 Hypertension Unspec Office Visit 11/11/2012 11:15a Main Office Ninfa Carter 455.0 Hemorrhoids Internal Storm, COMPUTER [employer]WORK AND SYSTEMS ENGINEER-C W/O Complication 564.00 Constipation Unspecified Office Visit 10/31/2012 10:00a Main Office Delfina Tidwell, COMPUTER NETWORK AND SYSTEMS ENGINEER-C 786.2 Cough Plan of Treatment 07/11/2018 - Lauri Aly, Z00.00 Encounter for general adult medical examination without abnoF32.9 Major depressive disorder, single episode, unspecifiedFollow up:Records from Dr. Burr03.9 Hypothyroidism, unspecifiedComments:Recheck labsE78.5 Hyperlipidemia, unspecifiedComments:LDL is well controlled on his current dosage of statin. We'll continue at this level.K13.79 Other lesions of oral mucosaComments:He had his tongue biopsies. He thinks nothing else has to be done, but doesn't remember any of the details.Follow up:Records from tongue surgery/biopsy results
--- OUTSIDE RECORDS SUMMARY | 2018-07-15 17:02 | XMS REPORT ---
:1965 External Reference #:[id number] Author Organization [employer] Address [address] [place] [address] [place] [address] Phone [phone] Care Team Providers Name Role Phone Lauri Aly MD Primary Care Physician Unavailable Payers Type Date Identification Numbers Payment Provider Subscriber Health Maintenance Policy Number: Medicare Blue o Lisa Cardoza [facility] (O) [id number] Group Number: [id number] [address] PayID: [id number] VIKTORIYA Mcallister [address] Medigap Part B Effective: Policy Number: [facility] Lisa Cardoza 10/25/2016 [id number] [facility] Expires: 05/05/2017 Group Number: [id number] [address] PayID: [id number] VIKTORIYA Thakkar [address] Medigap Part B Policy Number: [id number] Medicaid Lisa Cardoza Group Name: 1 1 [address] PayID: [id number] [place] [address] Problems Description No Information Family History Date Family Member(s) Problem(s) Comments General Heart Disease General Hypertension General Stroke General Cancer Social History Type Date Description Comments Lives With Alone Occupation Disabled Smoking Patient has never smoked Allergies, Adverse Reactions, Alerts Date Description Reaction Status Severity Comments 11/26/2016 NKDA active Medications Medication Date Status Form Strength Qnty SIG Indications Ordering Provider Compression Active Misc 2Pair S92.324D Cuate Campos 7 mmhg knee Mckinley Gurrola high R60.0 Loratadine Active Tablets 10mg Take One Unknown Tablet By Mouth Every Day Simvastatin Active Tablets 20mg Take One Unknown Tablet By Mouth AT Bedtime For Cholesterol Levocetirizine Active Tablets 5mg Take One Unknown Dihydrochloride Tablet By Mouth Every Day as Needed Mometasone Furoate Active Suspension 50mcg/A [place] Two Unknown ct Sprays In Each Nostril Every Day Ventolin HFA Active Aerosol 108(90B Inhale Two Unknown ase) Puffs By Mouth mcg/Act Every 4 Hours as Needed Quetiapine Active Tablets 300mg Take Two Unknown Fumarate Tablets By Mouth Every Day Trazodone HCL Active Tablets 50mg Take One Unknown Tablet By Mouth Twice A Day Clomipramine HCL Active Capsules 50mg Take One Unknown Capsule By Mouth Every Morning And Three AT Bedtime Gabapentin Active Capsules 300mg Take 1 2 Unknown Capsules By Mouth Three Times A Day Aripiprazole Active Tablets 10mg Take One Unknown Tablet By Mouth Every Day Hydroxyzine HCL Active Tablets 50mg Take One Unknown Tablet By Mouth Three Times A Day Lorazepam Active Tablets 1mg Take One Unknown Tablet By Mouth Three Times A Day Maximum Daily Dose 3 Clindamycin HCL 01/31/2018 - Hx Capsules 300mg 15c take one Cuate 04/13/2018 aps tablet by Galileo, mouth three M.D. times a day for 5 days. Probiotic & 01/31/2018 - Hx Capsules 10c Take one Cuate Acidophilus 04/13/2018 aps tablet daily Galileo, Formula Extra by mouth for M.D. Strength 10 days. Diphenhydramine 01/13/2018 - Hx Tablets 25mg 30t Take 1 by Cuate HCL 04/13/2018 abs mouth three Galileo, times a day M.D. Oxycodone HCL 01/03/2018 - Hx Tablets 5mg 15t 1 tab by mouth Noe F 04/13/2018 abs every 6 hours Juli, as needed for MD pain. Nystatin - Hx Suspension [id number] Swish And Unknown 05/12/2017 nit/ML Swallow 5 ML By Mouth Four Times A Day For 7 Days Retain In Symbicort - Hx Aerosol 160-4.5 Inhale Two Unknown 05/12/2017 mcg/Act Puffs By Mouth Twice A Day Sulfamethoxazole/T - Hx Tablets 800-160 Keaton, rimethoprim DS 05/31/2017 ZAID Valenzuela Medications Administered in Office Medication Date Status Form Strength Qnty SIG Indications Ordering Provider Triamcinolone 12/22/ Administered Injection [place] (Kenalog) 2017 MD Carmen Triamcinolone 11/04/ Administered Injection [place] (Kenalog) 2017 MD Carmen Vital Signs Date Vital Result Comment 07/05/2018 Height 65 inches 5'5" Weight 220.00 lb Heart Rate 78 /min BP Systolic 146 mmHg BP Diastolic 74 mmHg Respiratory Rate 12 /min Pain Level 5 BMI (Body Mass Index) 36.6 kg/m2 06/16/2018 Height 65 inches 5'5" Weight 220.00 lb Heart Rate 84 /min BP Systolic Sitting 126 mmHg BP Diastolic Sitting 80 mmHg Respiratory Rate 16 /min Pain Level 0 BMI (Body Mass Index) 36.6 kg/m2 04/14/2018 Height 65 inches 5'5" Weight 220.00 lb Heart Rate 67 /min Respiratory Rate 15 /min Pain Level 2 BMI (Body Mass Index) 36.6 kg/m2 03/24/2018 Height 65 inches 5'5" Weight 220.00 lb Heart Rate 72 /min BP Systolic Sitting 134 mmHg BP Diastolic Sitting 84 mmHg Respiratory Rate 19 /min Body Temperature 97.0 F Pain Level 0 BMI (Body Mass Index) 36.6 kg/m2 03/03/2018 Height 65 inches 5'5" Weight 220.00 lb BP Systolic 134 mmHg BP Diastolic 82 mmHg Respiratory Rate 20 /min Body Temperature 97.7 F Pain Level 0 BMI (Body Mass Index) 36.6 kg/m2 02/28/2018 Height 65 inches 5'5" Weight 220.00 lb BP Systolic 142 mmHg BP Diastolic 80 mmHg Respiratory Rate 18 /min Pain Level 0 BMI (Body Mass Index) 36.6 kg/m2 02/25/2018 Heart Rate 74 /min BP Systolic 138 mmHg BP Diastolic 78 mmHg Respiratory Rate 14 /min Body Temperature 98.3 F Pain Level 0 02/08/2018 Heart Rate 88 /min BP Systolic 130 mmHg BP Diastolic 80 mmHg Respiratory Rate 16 /min Body Temperature 97.2 F 01/18/2018 Height 65 inches 5'5" Weight 215.00 lb Heart Rate 94 /min Respiratory Rate 15 /min Body Temperature 98.4 F Pain Level 6 BMI (Body Mass Index) 35.8 kg/m2 01/13/2018 Height 65 inches 5'5" Weight 215.00 lb BP Systolic 122 mmHg BP Diastolic 68 mmHg Respiratory Rate 20 /min Body Temperature 97.8 F Pain Level 5 BMI (Body Mass Index) 35.8 kg/m2 12/28/2017 Height 65 inches 5'5" Weight 215.00 lb Heart Rate 88 /min Respiratory Rate 17 /min Body Temperature 98.1 F Pain Level 0 BMI (Body Mass Index) 35.8 kg/m2 12/14/2017 Height 65 inches 5'5" Weight 215.00 lb Heart Rate 83 /min Respiratory Rate 14 /min Body Temperature 97.3 F Pain Level 5 BMI (Body Mass Index) 35.8 kg/m2 11/18/2017 Height 65 inches 5'5" Weight 215.00 lb Heart Rate 79 /min BP Systolic 125 mmHg BP Diastolic 85 mmHg Body Temperature 96.5 F BMI (Body Mass Index) 35.8 kg/m2 09/10/2017 Height 65 inches 5'5" Weight 226.00 lb Heart Rate 82 /min Respiratory Rate 18 /min Body Temperature 98.1 F Pain Level 0 BMI (Body Mass Index) 37.6 kg/m2 08/26/2017 Height 65 inches 5'5" Weight 226.00 lb BP Systolic 120 mmHg BP Diastolic 70 mmHg Respiratory Rate 20 /min Pain Level 0 BMI (Body Mass Index) 37.6 kg/m2 07/16/2017 Heart Rate 68 /min BP Systolic Sitting 118 mmHg BP Diastolic Sitting 90 mmHg Body Temperature 97.2 F 06/18/2017 Heart Rate 72 /min BP Systolic 115 mmHg BP Diastolic 90 mmHg Body Temperature 96.7 F 06/01/2017 Height 65 inches 5'5" Weight 226.00 lb Heart Rate 80 /min BP Systolic Sitting 138 mmHg BP Diastolic Sitting 96 mmHg Respiratory Rate 14 /min Body Temperature 97.5 F BMI (Body Mass Index) 37.6 kg/m2 05/27/2017 Height 65 inches 5'5" Weight 218.00 lb Heart Rate 78 /min BP Systolic 132 mmHg BP Diastolic 92 mmHg Respiratory Rate 18 /min Body Temperature 97.4 F BMI (Body Mass Index) 36.3 kg/m2 05/13/2017 Height 65 inches 5'5" Weight 221.00 lb Heart Rate 72 /min BP Systolic Sitting 120 mmHg BP Diastolic Sitting 84 mmHg Respiratory Rate 14 /min Body Temperature 99.0 F BMI (Body Mass Index) 36.8 kg/m2 05/06/2017 Height 65 inches 5'5" Weight 218.00 lb Heart Rate 90 /min BP Systolic 134 mmHg BP Diastolic 86 mmHg Respiratory Rate 18 /min Body Temperature 97.7 F Pain Level 5 BMI (Body Mass Index) 36.3 kg/m2 11/26/2016 Height 64 inches 5'4" Weight 215.00 lb Heart Rate 62 /min BP Systolic 116 mmHg BP Diastolic 82 mmHg Respiratory Rate 16 /min Body Temperature 96.9 F BMI (Body Mass Index) 36.9 kg/m2 Results Test Date Test Result H/L Range Note Laboratory test 05/25/2018 Surgical Pathology SEE RESULT BELOW 1 finding CBC Auto Diff 12/31/2017 White Blood Count 11.3 10^3/uL High 3.5-10.8 Red Blood Count 5.79 10^6/uL High 4.0-5.4 [...] 0-2 Nucleated Red Blood Cells % 0.7 CBC Auto Diff 05/18/2017 White Blood Count 8.9 10^3/uL 3.5-10.8 Red Blood Count 6.13 10^6/uL High 4.0-5.4 Hemoglobin 18.4 g/dL High 14.0-18.0 Hematocrit 56 % High 42-52 Mean Corpuscular Volume 91 fL 80-94 Mean Corpuscular Hemoglobin 30 pg 27-31 Mean Corpuscular HGB Conc 33 g/dL 31-36 Red Cell Distribution Width 14 % 10.5-15 Platelet Count 220 10^3/uL 150-450 Mean Platelet Volume 8 um3 7.4-10.4 Abs Neutrophils 5.7 10^3/uL 1.5-7.7 Abs Lymphocytes 2.1 10^3/uL 1.0-4.8 Abs Monocytes 1.0 10^3/uL High 0-0.8 Abs Eosinophils 0.2 10^3/uL 0-0.6 Abs Basophils 0 10^3/uL 0-0.2 Abs Nucleated RBC 0.01 10^3/uL Granulocyte % 63.5 % 38-83 Lymphocyte % 23.5 % Low 25-47 Monocyte % 10.8 % High 1-9 Eosinophil % 1.8 % 0-6 Basophil % 0.4 % 0-2 Nucleated Red Blood Cells % 0.1 Laboratory test finding 05/18/2017 Hepatitis C Antibody Nonreactive Nonreactive C Reactive Protein 2.52 mg/L < 5.00 2 HIV 1/2 AB Evaluation 05/18/2017 HIV 1 2 Antibody Nonreactive Nonreactive 3 Laboratory test finding 04/26/2017 C Reactive Protein 18.21 mg/L High < 5.00 4 CBC Auto Diff 04/26/2017 White Blood Count 9.5 10^3/uL 3.5-10.8 Red Blood Count 6.50 10^6/uL High 4.0-5.4 Hemoglobin 19.8 g/dL High 14.0-18.0 Hematocrit 61 % High 42-52 Mean Corpuscular Volume 94 fL 80-94 Mean [...] 0-2 Nucleated Red Blood Cells % 0.9 Laboratory test finding 04/26/2017 Erythrocyte Sed Rate 0 mm/Hr 0-20 5 Lyme Disease Serology Negative Negative 6 Vitamin D, 1,25 Dihydroxy 33 pg/mL 18-64 7 1 SEE RESULT BELOW Name: LISA CARDOZA : [address]: Mark Santana MD Acct: [id number] Unit: [id number] AGE: 52 Location: OR Re05/25/18 SEX: M Status: [facility] SPEC: [id number] KAY: 05/25/18- SUBM DR: Mark Santana MD REQ: [id number] RECD: 05/25/18 STATUS: SOUT _ ORDERED: LEVEL 4, IMMUNO-FIRST FINAL DIAGNOSIS Tongue, right lateral aspect, biopsy: -- 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 See comment. Comment: The sections demonstrates a somewhat sessile acutely inflamed verrucoid squamous proliferative lesion with focal architectural complexity and ulceration. While focally suggestive, definitive invasion is not seen. Dysplasia is difficult to evaluate due to the degree of acute inflammation and reactive changes. The lesion extends to the unoriented inked surgical margin. A p16 stain performed with appropriate controls on block B is positive confirming an HPV related etiology to this lesion. 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 Conservative reexcision or other ablation of this lesion may be considered. Alternatively,close clinical follow-up is recommended. Dr. Mcintyre has reviewed this case and concurs. PRE-OPERATIVE DIAGNOSIS Right tongue lesion CONTINUED ON NEXT PAGE DEPARTMENT OF PATHOLOGY, [address] [place] [address] Brennen Patel M.D. Director [facility] # [id number] RUN DATE: 05/30/18 [facility] LAB LIVE PAGE 2 Patient: LISA CARDOZA [id number] (Continued) GROSS DESCRIPTION (Continued) GROSS DESCRIPTION The specimen is received in formalin labeled, Right Lateral Aspect of Tongue , and consists of a 1.5 x 1.4 by up to 0.6 cm bahena-thompson ovoid wrinkled irregular soft tissue fragment which is inked, serially sectioned and submitted entirely in two cassettes. Signed by and Reported on: Brennen Patel MD 04/11 7470 END OF REPORT DEPARTMENT OF PATHOLOGY, [address] [place] [address] Brennen Patel M.D. Director [facility] # [id number] 2 Acute inflammation: >10.00 3 It is recognized that currently available assays for the detection of antibodies to HIV-1 and/or HIV-2 may not detect all infected individuals. HIV antibodies may be undetectable in some stages of the infection and in some clinical conditions. The performance of this assay has not been established for populations of infants or children. Assayed by Chemiluminescence Microparticle Immunoassay on the Siemens Advia Centaur CP. Values obtained with different methods or kits cannot be used interchangeably.The diagnostic specificity of the ADVIA Centaur 1/O/2 Enhanced assay in the low risk population was 99.90% (6052/6058) with a 95% confidence interval of 99.78 to 99.96%. 4 Acute inflammation: >10.00 5 [id number] Serologic response to B. burgdorferi infection is not detected, but cannot rule out early infection during which low or undetectable antibody levels to B. burgdorferi may be present. If clinically indicated, a new serum specimen should be submitted in 7-14 days. Test Performed by: [facility] - [address] [address] 7 ADDITIONAL INFORMATION This test was developed and its performance characteristics determined by [facility] in a manner consistent with CLIA requirements. This test has not been cleared or approved by the U.S. Food and Drug Administration. Test Performed by: [facility] - [address] [address] Procedures Date CPT Code Description Status 01/03/2018 08823 Repair Nonunion/Malunion Metatarsal Completed 01/03/2018 45850 Repair Nonunion/Malunion Metatarsal Completed 12/22/2017 40889 Injection Intralesional Up To And Including 7 Lesions Completed 11/04/2017 22720 Injection Intralesional Up To And Including 7 Lesions Completed 10/08/2017 76790 Dest Lesion Each Addl Lesion 2 Through 14 Each Completed 10/08/2017 87587 Destruction ALL Benign Or Premalignant Lesion (Other Completed Than [place] 08/27/2017 04497 Destruction ALL Benign Or Premalignant Lesion (Other Completed Than [place] 05/06/2017 34530 FX Metatarsal Care Completed 03/18/2017 22954 Repair Immediate Wound 2.6-5CM Completed Face/Ear/Eyelid/Nose/Lip/Muc Mem 03/18/2017 37029 Excise Malig Lesion 1.1-2CM Face/Ear/Eyelid/Nose/Lip Completed Encounters Type Date Location Provider CPT E/M Dx Office Visit 06/16/2018 [facility] [address] S92.324G 11:15a Nicholas.Vianca Smith. Office Visit 04/20/2018 [facility] [place] [address] L90.5 11:30a R60.0 D22.5 Z80.8 Z08 Z85.828 Office Visit 04/14/2018 10:15a [facility] [address] S92.324K Tri Smith. Office Visit 02/28/2018 11:30a [facility] [address] R60.0 C.M.A. Office Visit 01/06/2018 10:43a [facility], [address] L03.115 toro [facility] MLucila Office Visit 12/14/2017 11:15a [facility] [address] S92.324G C.iVanca Sen Office Visit 11/18/2017 9:45a [facility] 12817 S92.324D Tri Sen Office Visit 11/04/2017 11:30a [facility] [place] [address] L21.8 L90.5 Office Visit 09/10/2017 11:30[place] [address] S92.324S Of [place] M25.474 Office Visit 08/26/2017 1:15p [facility] Loni Mike 12385 S92.324D Of [facility] RPA-C Office Visit 06/01/2017 11:30a [facility] Rachel Carpenter [address] R60.0 Infectious Diseases Mckinley Uriostegui Office Visit 05/13/2017 4:00p [facility] Rachel Carpenter [address]881 R60.0 Infectious Diseases Mckinley Uriostegui S92.324A D45 S92.324D Office Visit 03/15/2017 3:20p [facility] [place] [address] C44.91 Office Visit 11/26/2016 9:45a [facility] [place] [address] L05.92 [facility] Plan of Care Future Appointment(s):07/21/2018 11:30 am - [place] Gurrola M.D. at [facility]/20/2018 11:30 am - Michoacano Morales MD at [facility] [id number]/11 /2018 - [place] M.D.S92.324K Nondisp fx of 2nd metatarsal bone, r ft, 7thKNew Xrays:CT Extremity Lower Right WwoFollow up:after testing is completed
--- OUTSIDE RECORDS SUMMARY | 2018-07-15 17:02 | XMS REPORT ---
:1965 External Reference #:[id number] Author Organization [email or web address] Address [address] [place] [address] Phone [phone] Care Team Providers Name Role Phone Lauri Aly MD Primary Care Physician Unavailable Payers Type Date Identification Numbers Payment Provider Subscriber Health Maintenance Policy Number: Medicare Blue o Lisa Cardoza [facility] (O) [id number] Group Number: [id number] [address] PayID: [id number] VIKTORIYA Mcallister [address] Medigap Part B Effective: Policy Number: Blue [facility] Lisa Cardoza 10/25/2016 [id number] [facility] Expires: 05/05/2017 Group Number: [id number] [address] PayID: [id number] VIKTORIYA Thakkar [address] Medigap Part B Policy Number: [id number] Medicaid Lisa Cardoza Group Name: 1 1 [address] PayID: [id number] [place] [address] Problems Description No Information Family History Date [...] as Needed Mometasone Furoate Active Suspension 50mcg/A [place] Two Unknown ct Sprays In Each Nostril [...] for MD pain. Nystatin - Hx Suspension 234553C Swish And Unknown 05/12/2017 nit/ML Swallow 5 [...] Carmen Vital Signs Date Vital Result Comment 06/16/2018 Height 65 inches 5'5" Weight 220.00 [...] [address]: Mark Santana MD Acct: [id number] Unit: [id number] AGE: 52 Location: OR Re05/25/18 SEX: M Status: [facility] [place]C: [id number] KAY: 05/25/18- SUBM DR: Mark Santana MD REQ: [id number] RECD: 05/25/188 STATUS: SOUT _ ORDERED: LEVEL 4, IMMUNO-FIRST [...] CONTINUED ON NEXT PAGE DEPARTMENT OF PATHOLOGY, [address] [place] [address] Brennen Patel M.D. Director [facility] # [id number] RUN DATE: 05/30/18 [facility] LAB LIVE PAGE 2 Patient: NANILISA [id number] (Continued) GROSS DESCRIPTION (Continued) GROSS DESCRIPTION The specimen is received in formalin labeled, Right Lateral Aspect of Tongue , and consists of a 1.5 x 1.4 by up to 0.6 cm bahena-thompson ovoid wrinkled irregular soft tissue fragment which is inked, serially sectioned and submitted entirely in two cassettes. Signed by and Reported on: Brennen Patel MD 04/11 1255 END OF REPORT DEPARTMENT OF PATHOLOGY, [address] [place] [address] Brennen Patel M.D. Director [facility] # [id number] 2 Acute inflammation: >10.00 3 It is [...] to 99.96%. 4 Acute inflammation: >10.00 5 [id number] Serologic response to B. burgdorferi infection is not detected, but cannot rule out early infection during which low or undetectable antibody levels to B. burgdorferi may be present. If clinically indicated, a new serum specimen should be submitted in 7-14 days. Test Performed by: [facility] - [address] [address] 7 ADDITIONAL INFORMATION This test was developed and its performance characteristics determined by [facility] in a manner consistent with CLIA requirements. This test has not been cleared or approved by the U.S. Food and Drug Administration. Test Performed by: [facility] - [address] [address] Procedures Date CPT Code Description Status 01/03/2018 71313 Repair Nonunion/Malunion Metatarsal Completed 01/03/2018 65883 Repair Nonunion/Malunion Metatarsal Completed 12/22/2017 47507 Injection Intralesional Up To And Including 7 Lesions Completed 11/04/2017 56031 Injection Intralesional Up To And Including 7 Lesions Completed 10/08/2017 92536 Dest Lesion Each Addl Lesion 2 Through 14 Each Completed 10/08/2017 95620 Destruction ALL Benign Or Premalignant Lesion (Other Completed Than [place] 08/27/2017 78881 Destruction ALL Benign Or Premalignant Lesion (Other Completed Than [place] 05/06/2017 37928 FX Metatarsal Care Completed 03/18/2017 67630 Repair Immediate Wound 2.6-5CM Completed Face/Ear/Eyelid/Nose/Lip/Muc Mem 03/18/2017 55645 Excise Malig Lesion 1.1-2CM Face/Ear/Eyelid/Nose/Lip Completed Encounters Type Date Location Provider CPT E/M Dx Office Visit 04/20/2018 11:30a [facility] [place] [address] L90.5 R60.0 D22.5 Z80.8 Z08 Z85.828 Office Visit 04/14/2018 10:15a [facility] [address] S92.324K Tri Sen Office Visit 02/28/2018 11:30[place] [facility] [place] [address] R60.0 C.M.[place]arland Office Visit 01/06/2018 10:43a [facility] [place], [address] L03.115 toro [facility] [place] Office Visit 12/14/2017 11:15a [facility] [address] S92.324G Tri Sen Office Visit 11/18/2017 9:45a [facility] [address]74 S92.324D Tri Sen Office Visit 11/04/2017 11:30a [facility] [place] [address] L21.8 L90.5 Office Visit 09/10/2017 11:30[place] [facility] [address] S92.324S Of Tri M25.474 Office Visit 08/26/2017 1:15p [facility] Loni Mike [address] S92.324D Of C.MIraida RPA-C Office Visit 06/01/2017 11:30a [facility] Decue Carpenter [address] R60.0 Infectious Diseases [place] Uriostegui Office Visit 05/13/2017 4:00p [facility] Deuce Carpenter [address]29 R60.0 Infectious Diseases [place] Uriostegui S92.324A D45 S92.324D Office Visit 03/15/2017 3:20p [facility] [place] [address] C44.91 Office Visit 11/26/2016 9:45a [facility] [place] [address] [facility] Plan of Care Future Appointment(s):07/21/2018 11:30 am - [facility] M.D. at [facility]10/20/2018 11:30 am - [place]ano Morales MD at [facility] Rwldpqbkzyn85/23 /2018 - [place] M.D.S92.324G Nondisp fx of 2nd metatarsal bone, r ft, 7thGFollow up:5-6 weeks
[2018-07-15] MEDS ORDERED: Bupivacaine 0.5% PF 10 ML VIAL INJ ONE (18:27)
--- NOTE | 2018-07-15 18:38 | ED ---
Upper Extremity Pain - HPI Summary HPI Summary: 52 year male presents with left thumb injury today. He states he closed it in a car door. he is not on blood thinners. He has ecchymosis noted to the palmar aspect of thumb at the joint. Has subungual hematoma present. has full ROM with pain. denies any previous injury to the area. is not diabetic. Patient requesting a nerve block. - History of Current Complaint Chief Complaint: EDExtremityUpper Stated Complaint: LT THUMB INJURY Time Seen by Provider: 07/15/18 17:45 - Allergies/Home Medications Allergies/Adverse Reactions: Allergies Allergy/AdvReac Type Severity Reaction Status Date / Time ragweed pollen Allergy Intermediate Congestion Verified 07/15/18 16:49 Hayfever Allergy Congestion Uncoded 07/15/18 16:49 PMH/Surg Hx/FS Hx/Imm Hx Endocrine/Hematology History: Reports: Hx Thyroid Disease - on meds Denies: Hx Diabetes, Hx Anemia - blood levels too high, has blood taken to thin out Cardiovascular History: Denies: Hx Congestive Heart Failure, Hx Hypertension, Hx Pacemaker/ICD, Other Cardiovascular Problems/Disorders Respiratory History: Reports: Hx Asthma, Hx Sleep Apnea - no machine GI History: Denies: Hx Gastroesophageal Reflux Disease, Other GI Disorders History: Denies: Hx Renal Disease, Other Problems/Disorders Musculoskeletal History: Reports: Hx Arthritis, Other Musculoskeletal History - broke back 15 years ago Denies: Hx Rheumatoid Arthritis, Hx Osteoporosis Sensory History: Reports: Hx Contacts or Glasses - reading Denies: Hx Cataracts, Hx Glaucoma, Hx Hearing Aid Opthamlomology History: Reports: Hx Contacts or Glasses - reading Denies: Hx Cataracts, Hx Glaucoma Neurological History: Reports: Hx Migraine - history of, none recent, Other Neuro Impairments/Disorders - Hx LUMBAR Fx Psychiatric History: Reports: Hx Anxiety, Hx Depression Denies: Hx Panic Disorder - Cancer History Hx Chemotherapy: No - Surgical History Surgery Procedure, Year, and Place: PILONIDAL CYST(LOWER BACK) X 4. CYST ON LEFT ELBOW REMOVED. BASAL CELL REMOVED FROM RIGHT CHEEK. RT FT 2ND METATARSAL REPAIR 12/2017 Hx Anesthesia Reactions: No Infectious Disease History: No Infectious Disease History: Denies: Traveled Outside the [place] in Last 30 Days - Family History Known Family History: Negative: Cardiac Disease, Hypertension, Diabetes - Social History Alcohol Use: Occasionally Hx Substance Use: No Substance Use Type: Reports: None Substance Use Comment - Amount & Last Used: one drink every two weeks Hx Tobacco Use: No Smoking Status (MU): Never Smoked Tobacco Review of Systems Negative: Fever Negative: Chest Pain Negative: Shortness Of Breath Positive: Myalgia - left thumb Positive: Bruising - left thumb All Other Systems Reviewed And Are Negative: Yes Physical Exam Triage Information Reviewed: Yes Vital Signs On Initial Exam: Initial Vitals Temp Pulse Resp BP Pulse Ox 97.7 F 80 16 132/87 97 07/15/18 16:49 07/15/18 16:49 07/15/18 16:49 07/15/18 16:49 07/15/18 16:49 Vital Signs Reviewed: Yes Appearance: Positive: Well-Appearing Skin: Positive: Warm, Dry, Other - ecchymosis to left thumb, subungual hematoma present Head/Face: Positive: Normal Head/Face Inspection Eyes: Positive: Normal, Conjunctiva Clear ENT: Positive: Pharynx normal Respiratory/Lung Sounds: Positive: Clear to Auscultation, Breath Sounds Present Cardiovascular: Positive: Normal, RRR Musculoskeletal: Positive: Strength/ROM Intact - left thumb, Other - capillary refill<2 secs, tenderness over IP joint Neurological: Positive: Normal Psychiatric: Positive: Normal Procedures - Nail Trepanation Left Thumb Nail Trepanation Location: left thumb Method of Drainage: nail cauterized Sterile Dressing Applied: No - telfa, coband Finger Splint: Yes - metal Diagnostics - Vital Signs Vital Signs Temp Pulse Resp BP Pulse Ox 07/15/18 16:49 97.7 F 80 16 132/87 97 - Laboratory Lab Statement: Any lab studies that have been ordered have been reviewed, and results considered in the medical decision making process. - Radiology finger Xray Interpretation: No Acute Changes Radiology Interpretation Completed By: ED Physician Course/Dx - Course Course Of Treatment: 52 year male presents with left thumb injury today. He states he closed it in a car door. he is not on blood thinners. He has ecchymosis noted to the palmar aspect of thumb at the joint. Has subungual hematoma present. has full ROM with pain. denies any previous injury to the area. is not diabetic. capillary refill less then 2 seconds. Patient requesting a nerve block. Performed nail trepidation and placed a metal finger splint on the area. X-ray read by me and Dr. montejo as no fracture. Told to keep area elevated. Told take ibuprofen as needed for pain. Patient understands and agrees plan. - Diagnoses Differential Diagnosis/HQI/PQRI: Positive: Fracture (Closed), Hematoma, Strain Provider Diagnoses: Subungual hematoma, Contusion of left thumb Discharge - Sign-Out/Discharge Documenting (check all that apply): Patient Departure - Discharge Plan Condition: Good Disposition: HOME Patient Education Materials: Subungual Hematoma (ED) Referrals: Lauri Aly MD [Primary Care Provider] - Ines De La Rosa MD [Medical Doctor] - Additional Instructions: Take Tylenol or ibuprofen every 6 hours as needed for pain Apply ice, elevate Follow up with ortho if no improvement in a week Return to ED if develop any new or worsening symptoms - Billing Disposition and Condition Condition: GOOD Disposition: Home
[2018-07-15] MEDS ORDERED: Ibuprofen TAB* 600 MG PO ONE ×2 (19:06→19:07)
--- NOTE | 2018-07-16 07:19 | RAD ---
INDICATION: The patient's left thumb was shut in a car door. Now with ecchymosis at the nail bed. COMPARISON: None TECHNIQUE: 3 views of the left thumb were obtained. FINDINGS: The bones are normal alignment. Joint spaces appear maintained. No fracture is seen. IMPRESSION: No acute fracture or dislocation. If the patient's symptoms persist, follow-up imaging is recommended. R0
== END 2018-07-15 20:20 | disposition home or self-care (01) ==
LOC: ED 16:27
DX: S60.012A Contusion of left thumb without damage to nail, initial encounter (principal); M79.645 Pain in left finger(s); W23.0XXA Caught, crushed, jammed, or pinched between moving objects, initial encounter; Y92.9 Unspecified place or not applicable
CPT/HCPCS: 99281; A9270-GY

== ENCOUNTER 2019-01-16 10:26 | Day surgery (SDC) | payer MEDICARE, MEDICAID ==
[~2019-01-16 10:26] MED LIST changes: +Acetaminophen TAB* 325 MG PO ONE; -Buffered Lidocaine 0.9% SYRIN* 5 ML/SYR SYRINGE INTRADERM ONE; +Buffered Lidocaine 1% SYRIN* 1 ML/SYRINGE INTRADERM ONE; -Dexamethasone IV* 4 MG/ML 1 ML (4 MG) IV SLOW PU ONE; -Famotidine IV* 10 MG/ML 2 ML (20 mg) IV ONE; +Lactated Ringers 1000 ML Bag* 1,000 ML IV SCH
[2019-01-16] MEDS ORDERED: ceFAZolin 2 GM in NS PREMIX(*) 2 GM/100 ML BAG IVPB ONE (10:57)
[2019-01-16] MEDS ORDERED: Acetaminophen TAB* 325 MG ONE (10:57)
[2019-01-16] MEDS ORDERED: fentaNYL* 50 MCG/ML 2 ML VIAL (100 MCG VIAL) ONE (11:09)
[2019-01-16] MEDS ORDERED: Midazolam* 1 MG/ML 2 ML VIAL (2 MG) ONE (11:09)
[2019-01-16] MEDS ORDERED: Bupivacaine 0.5%* 50 ML VIAL ONE (12:02)
[2019-01-16] MEDS ORDERED: Lidocaine 2% PF* 10 ML AMP ONE (12:02)
[2019-01-16] MEDS ORDERED: DiMENhydriNATE IV* 50 MG/ML VIAL IV PUSH PRN (12:30)
[2019-01-16] MEDS ORDERED: HYDROcodone/ACETAMIN 5-325 MG* 1 TAB PO PRN ×2 (12:30)
[2019-01-16] MEDS ORDERED: PROCHLORPERAZINE INJ 5 MG/ML 2 ML VIAL IV PRN (12:30)
[2019-01-16] MEDS ORDERED: Levalbuterol 0.63MG/3ML NEB* UNIT OF USE INH PRN (12:30)
[2019-01-16] MEDS ORDERED: fentaNYL* 50 MCG/ML 2 ML VIAL (100 MCG VIAL) IV PRN (12:30)
[2019-01-16] MEDS ORDERED: Naloxone* 0.4 MG/ML 1 ML VIAL IV PRN (12:30)
[2019-01-16] MEDS ORDERED: diPHENhydraMINE IV* 50 MG/ML 1 ml VIAL (BENADRYL) IV PRN (12:30)
[2019-01-16] MEDS ORDERED: Propofol* 10 MG/ML 20 ML BTL ONE (12:45)
[2019-01-16] MEDS ORDERED: Dexamethasone IV* 4 MG/ML 1 ML (4 MG) ONE (12:45)
[2019-01-16] MEDS ORDERED: Ketorolac INJ* 30 MG/ML 1 ML VIAL ONE (12:45)
[2019-01-16] MEDS ORDERED: Lidocaine 2% PF * 5 ML VIAL ONE (12:45)
[2019-01-16] MEDS ORDERED: Ondansetron INJ* 2 MG/ML VIAL ONE (12:45)
--- NOTE | 2019-01-16 14:18 | OP ---
DATE OF OPERATION: 01/16/19 - [facility] DATE OF : 63 SURGEON: [place]a MD HOT STONE SETTER: Loni Mike PA-C PRE-OP DIAGNOSIS: Painful loose hardware, right midfoot. POST-OP DIAGNOSIS: Painful loose hardware, right midfoot. OPERATIVE PROCEDURE: Removal of hardware, right midfoot. DESCRIPTION OF PROCEDURE: The patient was taken to the operating room where a 2 cm incision was made over the dorsum of the right midfoot. 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 We then irrigated the wound, closing with 3-0 Monocryl and nylon for the skin and a compression dressing applied. [id number]/[facility] #: [id number] [facility]ITALRosmery
[2019-01-16 14:27] VITALS: BP 135/99
== END 2019-01-16 14:18 | disposition home or self-care (01) ==
LOC: OR 10:26
PROVIDERS: ATTEND Orthopaedic Surgery
DX: T84.84XA Pain due to internal orthopedic prosthetic devices, implants and grafts, initial encounter (principal); Y83.1 Surgical operation with implant of artificial internal device as the cause of abnormal reaction of the patient, or of later complication, without mention of misadventure at the time of the procedure; M84.374D Stress fracture, right foot, subsequent encounter for fracture with routine healing; I10 Essential (primary) hypertension; E03.9 Hypothyroidism, unspecified; R60.0 Localized edema; J45.909 Unspecified asthma, uncomplicated; X58.XXXD Exposure to other specified factors, subsequent encounter; Y92.9 Unspecified place or not applicable
CPT/HCPCS: 88300; A9270-GY; J0690; J1100; J1885; J2001; J2250; J2405; J2704; J3010

== ENCOUNTER 2019-01-18 21:16 | Observation (INO) | payer MEDICARE, MEDICAID ==
--- OUTSIDE RECORDS SUMMARY | 2019-01-18 21:31 | XMS REPORT | Continuity of Care Document ---
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 [address] [place] [address] Expires: 2015 Policy Number: [id number] Medicare - Bswny Umd Lisa Cardoza PayID: [id number] [address] [place] [address] Expires: 2018 Policy Number: [id number] Medicaid After Medicare Lisa Cardoza Group Name: 2 1 [address] PayID: [id number] [place] [address] Advance Directives Type Date Description Status Comment Other Directive 03/19/2011 Health Care Proxy Current and Verified Other Directive 03/18/2011 Power Of Die Maker Apprentice Current and Verified POA Problems Description No Information Family History Date Family Member(s) Observation Comments Father Healthy Mother CAD Mother Cancer, [...] Pollen Active 03/14/2018 Ragweed Active 03/14/2018 Alpesh Garvin Pollen Extract Active 03/14/2018 Dandelion Extract Active 10/31/2012 NKDA Inactive Medications Medication Date Status Form Strength Qnty SIG Indications Ordering Provider Vitamin C 01/06 Active once daily MD Sheeba Iron 01/06 Active once daily MD Sheeba Hydrochlorothiazi 12/27 Active Tablets 25mg 30tab 1 by mouth R60.9 wnt s every day LUCINDA EstradaP-Nicholas Ventolin HFA 11/16 Active Aerosol 108(90Bas 8gm 1-2 puffs e) four times [place] mcg/Act a day as , MD needed Semprex-D 09/06 Active Capsules 8-60mg 60cap Take One s Capsule By Emma Garcia Mouth Four [employer] TRAINING MANAGER-C Times A Day Sudafed 12 Hour 08/05 Active Tablets ER 120mg 30tab 1 tab by R09.81 12HR s mouth [place] twice a , MD day as needed Fluticasone 08/05 Active Suspension 50mcg/Act 16gm 2 sprays Lauri Propionate into each [place] nostril , once daily Mucinex 07/23 Active Tablets ER 600mg 60tab take one 12HR s tablet by Emma Garcia mouth [employer] TRAINING MANAGER-C every 12 hours as needed for mucus Xyzal Allergy 07/22 Active Tablets 5mg 60tab 1 tab by Lauri 24H s mouth as [place] needed , Clotrimazole/Beta 03/14 Active Cream 1-0.05% 15gm 1 apply to B37.2 Lauri methasone affected [place] Dipropionate area twice , a day for 2 weeks Proctozone-HC 02/04 Active Cream 2.5% 30gm apply to K64.9 hemorrhoid talya Estrada 3 - 4 [employer] TRAINING MANAGER-C times daily if needed Lidocaine-Priloca 02/04 Active Cream 2.5-2.5% 25gm apply pea K64.9 ine sized area Emma Garcia, 3 to 4 [employer] TRAINING MANAGER-C times daily for pain Levothroid 11/25 Active Tablets 88mcg Delfina /LUCINDA AndersonP-Nicholas Lorazepam 11/06 Active Tablets 1mg 1 po tid Delfina ZAID [place]-C Trazodone HCL 11/06 Active Tablets 50mg 30tab take 1 Delfina s tablet po [place], bid [employer] TRAINING MANAGER-C Simvastatin 11/06 Active Tablets 20mg 90tab take one Lauri s tablet by Sheeba preston at MD bedtime for cholestero l Montelukast 10/31 Active Tablets 10mg 30tab Take One R05 Lauri Sodium s Tablet By Sheeba Mouth AT MD Bedtime Abilify Active Tablets 10mg 1 po hs Unknown /0000 Hydroxyzine HCL Active Tablets 50mg 60tab 1 tab po Unknown /0000 s tid Clomipramine HCL Active Capsules 50mg 1 tab po Unknown /0000 bid Androgel Active Gel 25mg/2.5G apply 1 Unknown / M packet to skin once daily Quetiapine Active Tablets 300mg take 2 Unknown Fumarate /0000 tablets po q hs Gabapentin Active Capsules 300mg 90cap 1 tablet Unknown /0000 s po tid Hydrocodone Active Solution 7.5-325mg Rup[place]lia Bitartrate/Acetam / /15ML Mark M.D. Trazodone HCL Active Tablets 50mg Take One Unknown /0000 Tablet By Mouth Twice A Day Hydrochlorothiazi 12/21 Hx Tablets 12.5mg 30tab 1 tab by R60.9 Lauri s mouth Sheeba - MD karla 12/27 Zyrtec Allergy 07/17 Hx Capsules 10mg 30cap 1 by mouth Lauri s every day Sheeba Mujica MD 07/22 Econazole Nitrate 09/17 Hx Cream 1% 30gm apply twice a [place], - day to [facility] 03/14 groin rash as directed for 2-4 weeks Clotrimazole/Beta 09/15 Hx Cream 1-0.05% 15gm 1 apply to L30.4 Lauri methasone affected Sheeba Weinerionate - area twice MD 05/21 a day for 1 week Semprex-D 07/29 Hx Capsules 8-60mg 60cap take one Lauri s capsule by Sheeba - mouth MD helen 07/17 times a day Bactrim DS 05/05 Hx Tablets 800-160mg 20tab 1 by mouth M86.271 s twice a [place], - day x 10 [employer] TRAINING [employer]NAGER-C Meloxicam 04/26 Hx Tablets 15mg 30tab 1 by mouth M72.2 s every day, [place], - take with [employer] TRAINING MANAGER-C 03/14 Mucinex 03/23 Hx Tablets ER 600mg 60tab take 1 R05 12HR s tablet by [place], - mouth [employer] TRAINING MANAGER-C 07/29 twice day as needed for cough and to think mucus..mi nk extra water Meloxicam 03/03 Hx Tablets 7.5mg 60tab take 1 M72.2 s tablet by [place], - mouth [employer] TRAINING MANAGER-C 04/26 daily with food for back pain Keflex 11/27 Hx Capsules 500mg 10cap 1 tab by s mouth [place], - twice a [employer] TRAINING MANAGER-C Augmentin 11/25 Hx Tablets 875-125mg 20tab 1 by mouth L05.91 s twice a [place], - day for [employer] TRAINING MANAGER-C 02/09 infection, take for 10 days Ibuprofen 11/25 Hx Tablets 600mg 120ta take one bs tablet by [place], - mouth 4 [employer] TRAINING MANAGER-C 03/14 daily with food as needed for pain Loratadine 11/22 Hx Tablets 10mg 30tab 1 by mouth s every day [place], - [employer] TRAINING MANAGER-C 03/14 Doxycycline 09/14 Hx Capsules 100mg 2caps 2 tablets S40.861A Delfina Monohydrate by mouth [place], - now [employer] TRAINING MANAGER-C 10/21 Triamcinolone 08/18 Hx Cream 0.1% 15gm apply to L30.9 Tom Acetonide affected [place] - area 2-3 III, 02/09 times [employer] TRAINING MANAGER-C daily Cephalexin 06/16 Hx Tablets 500mg 14tab 1 tablet K12.2 s by mouth [place] - twice III, 11/25 daily for [employer] TRAINING MANAGER-C 7 days Keflex 06/15 Hx Capsules 500mg 4caps 1 tab by Lauri mouth [place] - twice a , MD Mupirocin 06/09 Hx Ointment 2% 22gm apply to L08.9 affected [place] - area 3 III, 11/25 times [employer] TRAINING MANAGER-C daily for 7 days Diazepam 02/25 Hx Tablets 5mg 2tabs take one tablet 1 [place], - hour prior [employer] TRAINING MANAGER-C 02/09 to procedure. may repeat x1 Zyrtec Allergy 10/16 Hx Tablets 10mg 30tab 1 by mouth s every day [place], - as needed [employer] TRAINING MANAGER-C 11/20 allergies Mucinex 09/23 Hx Tablets ER 600mg 60tab take 1 J30.9 12HR s tablet by Emma Garcia, - mouth [employer] TRAINING MANAGER-C 11/20 twice a day as needed for cough and to think mucus..dri nk extra water Econazole Nitrate 10/11 Hx Cream 1% 15gm apply to 110.9 groin area [place], - twice a [employer] TRAINING MANAGER-C Valium 09/24 Hx Tablets 2mg 2tabs 1 by mouth 30 min Emma Garcia, - prior to [employer]AIL TRAINING MANAGER-C 09/26 procedure, may repeat in one hour if needed Anusol-HC 08/15 Hx Cream 2.5% 30uni Apply To 455.0 ts Rectum Emma Garcia, - Three [employer] TRAINING MANAGER-C 09/27 Times Day as Needed Oxycodone HCL 07/16 Hx Tablets 5mg 5five 1 by mouth 455.4 q6hr as [place], - needed [employer] TRAINING MANAGER-C 09/23 severe /2015 pain Lisinopril 05/04 Hx Tablets 5mg 30tab 1 by mouth s every day [place], - replaces [employer] TRAINING MANAGER-C 06/04 10 mg dose /2013 Sulfamethoxazole/ 08/31 Hx Tablets 800-160mg 20tab 1 po bid 682.8 Shawnti Trimethoprim s for Emma Garcia, - infection, [employer] TRAINING MANAGER-C 06/04 take for 10 days Fluticasone 06/30 Hx Suspension 50mcg/Act 16gm 2 sprays Delfina into each [place], - nostril [employer]AIL TRAINING MANAGER-C 11/25 once daily Miralax 11/11 Hx Packet [id number] 1mont 1 packet 564.00 nt h po daily Emma Garcia, - for [employer] TRAINING MANAGER-C 02/16 stools, can increase to bid if needed Proctocare-HC 11/11 Hx Cream 2.5% 28.35 Apply To 455.0 units Rectum Emma Garcia, - Three [employer] TRAINING MANAGER-C 08/15 Times Day as Needed Lisinopril 11/06 Hx Tablets 10mg 30tab Take One s Tablet By Emma Garcia, - Mouth [employer]AIL TRAINING MANAGER-C 05/04 Every Day Cetirizine HCL 10/31 Hx Tablets 10mg 30tab 1 po qd 786.2 Delfina s [place], - RETAIL TRAINING MANAGER-C 10/31 Levothroid Hx Tablets 75mcg 1 tab po q Celzo, /0000 am on Desi - empty 11/25 stomach hour prior to meal and other meds Loratadine-D 24HR 00 Hx Tablets ER 10-240mg 90tab take one Delfina 24HR s tablet by [place], - mouth [employer] TRAINING MANAGER-C 11/22 every day Immunizations CPT Code Status Date Vaccine Lot # [id number] Given 07/11/2018 Influenza Virus Vaccine, Quadrivalent, 3 Yr > [id number] Quad, Preserv Free 74275 Given 07/25/2017 Influenza Virus Vaccine, Quadrivalent, 3 Yr > Quad, Preserv Free 45650 Given 03/10/2017 Tdap (Adacel) [id number] 57450 Given 08/04/2016 Influenza Virus Vaccine, Quadrivalent, 3 Yr > Quad, Preserv Free 23407 Given 08/04/2016 Prevnar-13 Pneumococcal Conjugate Vaccine 06337 Given 08/23/2015 Influenza Virus Vaccine, Quadrivalent, 3 Yr > Quad, Preserv Free 95969 Given 11/03/2013 Influenza Vaccine-Preservative Free 3 Yrs And [id number] Above Vital Signs Date Vital Result Comment 01/06/2019 10:50am Weight 251.00 lb Weight 113.854 kg BP Systolic 108 mmHg BP Diastolic 70 mmHg Heart Rate 72 /min Body Temperature 98.6 F Respiratory Rate 16 /min 12/21/2018 2:43pm Weight 259.00 lb Weight 117.482 kg BP Systolic 128 mmHg BP Diastolic 80 mmHg Heart Rate 90 /min Body Temperature 97.6 F Respiratory Rate 18 /min O2 % BldC Oximetry 96 % 11/16/2018 11:35am Weight 255.00 lb Weight 115.668 kg BP Systolic 150 mmHg BP Diastolic 90 mmHg Heart Rate 92 /min Body Temperature 97.9 F Respiratory Rate 16 /min O2 % BldC Oximetry 97 % 08/05/2018 1:54pm Weight 237.00 lb Weight 107.503 kg BP Systolic 120 mmHg BP Diastolic 78 mmHg Heart Rate 80 /min Body Temperature 97.7 F Respiratory Rate 16 /min O2 % BldC Oximetry 97 % 07/11/2018 1:07pm Weight 237.00 lb Weight 107.503 [...] Test Result H/L Range Note Laboratory test 01/06/2019 [facility] Ferritin 10.7 ng/mL Low 24-336 1 finding [phone] CBC No Diff 01/06/2019 [facility] White Blood 9.7 10^ 3/uL N 3.5-10.8 [phone] Count Red Blood Count 6.31 10^6/uL High 4.18-5.48 Hemoglobin 12.7 g/dL Low 14.0-18.0 Hematocrit 42 % N 36-46 Mean Corpuscular Volume 66 fL Low 80-94 2 Mean Corpuscular Hemoglobin 20 pg Low 27-31 Mean Corpuscular HGB Conc 31 g/dL N 31-36 Red Cell Distribution Width 21 % High 10.5-15 Platelet Count 359 10^3/uL N 150-450 Mean Platelet Volume 8.7 fL N 7.4-10.4 Iron & Iron Binding 01/06/2019 [facility] Iron 71 g /dL N 50-212 Capacity [phone] Unsaturated Iron Binding < 514 g/dL Total Iron Binding Capacity 529 g/dL High 250-450 Transferrin 378 mg/dL High 203-362 % Iron Saturation 13 % Low 15-55 Comp Metabolic Panel 12/21/2018 [facility] Sodium 138 mmol/L N 135-145 [phone] Potassium 4.5 mmol/L N 3.5-5.0 Chloride 105 mmol/L N 101-111 Co2 Carbon Dioxide 27 mmol/L N 22-32 Anion Gap 6 mmol/L N 2-11 Glucose 89 mg/dL N 70-100 Blood Urea Nitrogen 15 mg/dL N 6-24 Creatinine 0.90 mg/dL N 0.67-1.17 BUN/Creatinine Ratio 16.7 N 8-20 Calcium 9.1 mg/dL N 8.6-10.3 Total Protein 6.8 g/dL N 6.4-8.9 Albumin 4.2 g/dL N 3.2-5.2 Globulin 2.6 g/dL N 2-4 Albumin/Globulin Ratio 1.6 N 1-3 Total Bilirubin 0.20 mg/dL N 0.2-1.0 Alkaline Phosphatase 85 U/L N 34-104 Alt 16 U/L N 7-52 Ast 16 U/L N 13-39 Egfr Non- 87.9 >60 Egfr 106.4 >60 3 CBC Auto 12/21/2018 [facility] White Blood 11.1 10^3/ uL High 3.5-10.8 Diff [phone] Count Red Blood Count 6.05 10^6/uL High 4.00-5.40 Hemoglobin 12.1 g/dL Low 14.0-18.0 Hematocrit 40 % Low 42-52 Mean Corpuscular Volume 65 fL Low 80-94 4 Mean Corpuscular Hemoglobin 20 pg Low 27-31 Mean Corpuscular HGB Conc 31 g/dL N 31-36 Red Cell Distribution Width 21 % High 10.5-15 Platelet Count 370 10^3/uL N 150-450 Mean Platelet Volume 7.9 fL N 7.4-10.4 Abs Neutrophils 7.8 10^3/uL High 1.5-7.7 Abs Lymphocytes 1.7 10^3/uL N 1.0-4.8 Abs Monocytes 1.3 10^3/uL High 0-0.8 Abs Eosinophils 0.3 10^3/uL N 0-0.6 Abs Basophils 0.1 10^3/uL N 0-0.2 Abs Nucleated RBC 0 10^3/uL Granulocyte % 70.1 % Lymphocyte % 15.7 % Monocyte % 11.3 % Eosinophil % 2.3 % Basophil % 0.6 % Nucleated Red Blood Cells % 0.1 Laboratory test 12/21/2018 [facility] TSH (Thyroid 0.96 mcIU/mL N 0.34-5.60 5 finding [phone] Stim Horm) B-Type Natriuretic Peptide BNP 9 pg/mL <=100 6 Laboratory test 07/11/2018 [facility] TSH (Thyroid 0.87 mcIU/mL N 0.34-5.60 7 finding [phone] Stim Horm) Free T4 (Free Thyroxine) 0.57 ng/dL Low 0.61-1.12 8 Lipid Profile 07/11/2018 [facility] Triglycerides 230 mg/dL 9 (Trig/Chol/HDL) [phone] Cholesterol 153 mg/dL 10 HDL Cholesterol 38.2 mg/dL 11 LDL Cholesterol 69 mg/dL 12 Laboratory 05/31/2018 [facility] Hepatitis C Nonreactive Nonreactive 13 test finding [phone] Antibody Comp Metabolic 01/06/2018 [facility] Sodium 133 mmol/ L N 133-145 Panel [phone] Potassium 4.0 mmol/L N 3.5-5.0 Chloride 100 mmol/L Low 101-111 Co2 Carbon Dioxide 25 mmol/L N 22-32 Anion Gap 8 mmol/L N 2-11 Glucose 92 mg/dL N 70-100 Blood Urea Nitrogen 12 mg/dL N 6-24 Creatinine 0.92 mg/dL N 0.67-1.17 BUN/Creatinine Ratio 13.0 N 8-20 Calcium 9.6 mg/dL N 8.6-10.3 Total Protein 7.0 g/dL N 6.4-8.9 Albumin 3.8 g/dL N 3.2-5.2 Globulin 3.2 g/dL N 2-4 Albumin/Globulin Ratio 1.2 N 1-3 Total Bilirubin 1.00 mg/dL N 0.2-1.0 Alkaline Phosphatase 84 U/L N 34-104 Alt 19 U/L N 7-52 Ast 23 U/L N 13-39 Egfr Non- 86.1 >60 Egfr 110.7 >60 14 Laboratory test 01/06/2018 [facility] C Reactive 146.74 mg/L High < 5.00 15 finding [phone] Protein CBC Auto Diff 01/06/2018 [facility] White Blood 12.3 High 3.5-10.8 [phone] Count 10^3/uL Red Blood Count 6.07 10^6/uL High 4.0-5.4 Hemoglobin 17.7 g/dL N 14.0-18.0 Hematocrit 53 % High 42-52 Mean Corpuscular Volume 87 fL N 80-94 Mean Corpuscular Hemoglobin 29 pg N 27-31 Mean Corpuscular HGB Conc 34 g/dL N 31-36 Red Cell Distribution Width 14 % N 10.5-15 Platelet Count 197 10^3/uL N 150-450 Mean Platelet Volume 8 um3 N 7.4-10.4 Abs Neutrophils 9.0 10^3/uL High 1.5-7.7 Abs Lymphocytes 1.5 10^3/uL N 1.0-4.8 Abs Monocytes 1.5 10^3/uL High 0-0.8 Abs Eosinophils 0.2 10^3/uL N 0-0.6 Abs Basophils 0.1 10^3/uL N 0-0.2 Abs Nucleated RBC 0 10^3/uL Granulocyte % 73.0 % N 38-83 Lymphocyte % 12.6 % Low 25-47 Monocyte % 12.2 % High 0-7 Eosinophil % 1.8 % N 0-6 Basophil % 0.4 % N 0-2 Nucleated Red Blood Cells % 0.1 Laboratory test 01/06/2018 [facility] Lactic Acid 1.6 mmol/L N 0.5-2.0 16 finding [phone] Inr/Protime 01/06/2018 [facility] Inr 0.99 N 0.77- 1.02 [phone] Laboratory test 01/06/2018 [facility] Partial 30.3 seconds N 26.0-36.3 finding [phone] Thrombo Time PTT Blood Culture SEE RESULT BELOW 17 CBC Auto 12/31/2017 [facility] White Blood 11.3 10^3/ uL High 3.5-10.8 Diff [phone] Count Red Blood Count 5.79 10^6/uL High 4.0-5.4 Hemoglobin 17.1 g/dL N 14.0-18.0 Hematocrit 51 % N 42-52 Mean Corpuscular Volume 88 fL N 80-94 Mean Corpuscular Hemoglobin 30 pg N 27-31 Mean Corpuscular HGB Conc 34 g/dL N 31-36 Red Cell Distribution Width 14 % N 10.5-15 Platelet Count 235 10^3/uL N 150-450 Mean Platelet Volume 8 um3 N 7.4-10.4 Abs Neutrophils 8.6 10^3/uL High 1.5-7.7 Abs Lymphocytes 1.6 10^3/uL N 1.0-4.8 Abs Monocytes 0.9 10^3/uL High 0-0.8 Abs Eosinophils 0.1 10^3/uL N 0-0.6 Abs Basophils 0.1 10^3/uL N 0-0.2 Abs Nucleated RBC 0.1 10^3/uL Granulocyte % 76.2 % N 38-83 Lymphocyte % 14.4 % Low 25-47 Monocyte % 7.8 % High 0-7 Eosinophil % 1.0 % N 0-6 Basophil % 0.6 % N 0-2 Nucleated Red Blood Cells % 0.7 Hemoglobin/Hematacrit 10/04/2017 [facility] Hemoglobin 17.5 N 14.0-18.0 [phone] g/dL Hematocrit 52 % N 42-52 Laboratory test 04/26/2017 [facility] Rheumatoid Factor <15 IU/mL N <15 18 finding [phone] Erythrocyte Sed Rate 0 mm/Hr N 0-20 19 C Reactive Protein 18.21 mg/L High < 5.00 20 Lyme Western 04/26/2017 [facility] Lyme Disease Negative N Negative Blot [phone] IgG Ab WB Lyme Disease IgG Bands Present No bands detecte <SEE NOTE> kDa N 21 Lyme Disease IgM Ab WB Negative N Negative Lyme Disease IgM Bands Present No bands detecte <SEE NOTE> kDa N 22 Lyme Disease Interpretation See Comment N 23 Tick-Borne Panel 04/26/2017 [facility] Babesia Negative N Negative PCR Blood [phone] microti PCR Babesia ducani Negative N Negative Babesia divergens/Mo-1 Negative N Negative 24 Anaplasma phagocytophilum Negative N Negative Ehrlichia chaffeensis Negative N Negative Ehrlichia ewingii/canis Negative N Negative Ehrlichia muris-like Negative N Negative 25 B. miyamotoi PCR, B Negative N Negative 26 CBC Auto Diff 04/26/2017 [facility] White Blood 9.5 10^3/uL N 3.5-10.8 [phone] Count Red Blood Count 6.50 10^6/uL High 4.0-5.4 Hemoglobin 19.8 g/dL High 14.0-18.0 Hematocrit 61 % High 42-52 27 Mean Corpuscular Volume 94 fL N 80-94 Mean Corpuscular Hemoglobin 31 pg N 27-31 Mean Corpuscular HGB Conc 33 g/dL N 31-36 Red Cell Distribution Width 15 % N 10.5-15 Platelet Count 206 10^3/uL N 150-450 Mean Platelet Volume 9 um3 N 7.4-10.4 Abs Neutrophils 6.2 10^3/uL N 1.5-7.7 Abs Lymphocytes 1.8 10^3/uL N 1.0-4.8 Abs Monocytes 1.2 10^3/uL High 0-0.8 Abs Eosinophils 0.2 10^3/uL N 0-0.6 Abs Basophils 0.1 10^3/uL N 0-0.2 Abs Nucleated RBC 0.08 10^3/uL N Granulocyte % 65.2 % N 38-83 Lymphocyte % 19.2 % Low 25-47 Monocyte % 12.7 % High 1-9 Eosinophil % 2.2 % N 0-6 Basophil % 0.7 % N 0-2 Nucleated Red Blood Cells % 0.9 N Comp Metabolic Panel 04/26/2017 [facility] Sodium 137 mmol/L N 133-145 [phone] Potassium 4.3 mmol/L N 3.5-5.0 Chloride 104 mmol/L N 101-111 Co2 Carbon Dioxide 27 mmol/L N 22-32 Anion Gap 6 mmol/L N 2-11 Glucose 70 mg/dL N 70-100 Blood Urea Nitrogen 18 mg/dL N 6-24 Creatinine 0.97 mg/dL N 0.67-1.17 BUN/Creatinine Ratio 18.6 N 8-20 Calcium 9.1 mg/dL N 8.6-10.3 Total Protein 6.4 g/dL N 6.4-8.9 Albumin 4.0 g/dL N 3.2-5.2 Globulin 2.4 g/dL N 2-4 Albumin/Globulin Ratio 1.7 N 1-3 Total Bilirubin 0.50 mg/dL N 0.2-1.0 Alkaline Phosphatase 71 U/L N 34-104 Alt 25 U/L N 7-52 Ast 17 U/L N 13-39 Egfr Non- 81.3 N >60 Egfr 104.5 N >60 28 Laboratory test 04/26/2017 [facility] TSH (Thyroid 2.01 mcIU/mL N 0.34-5.60 29 finding [phone] Stim Horm) Lyme Disease Serology Negative N Negative 30 Vitamin D, 1,25 Dihydroxy 33 pg/mL N 18-64 31 Laboratory test 03/08/2017 [facility] Surgical SEE RESULT 32, 33 finding [phone] Pathology BELOW Comp Metabolic 09/22/2016 [facility] Sodium 135 mmol/ L N 133-1 Panel [phone] Potassium 4.5 mmol/L N 3.5-5.0 Chloride 102 mmol/L N 101-111 Co2 Carbon Dioxide 27 mmol/L N 22-32 Anion Gap 6 mmol/L N 2-11 Glucose 89 mg/dL N 70-100 Blood Urea Nitrogen 10 mg/dL N 6-24 Creatinine 0.89 mg/dL N 0.67-1.17 BUN/Creatinine Ratio 11.2 N 8-20 Calcium 9.5 mg/dL N 8.6-10.3 Total Protein 6.8 g/dL N 6.4-8.9 Albumin 3.9 g/dL N 3.2-5.2 Globulin 2.9 g/dL N 2-4 Albumin/Globulin Ratio 1.3 N 1-3 Total Bilirubin 0.40 mg/dL N 0.2-1.0 Alkaline Phosphatase 67 U/L N 34-104 Alt 33 U/L N 7-52 Ast 26 U/L N 13-39 Egfr Non- 89.8 N >60 Egfr 115.4 N >60 34 Laboratory test 09/22/2016 [facility] Troponin-I 0.00 ng/mL N <0.04 35 finding [phone] (TnI) CBC Auto Diff 09/22/2016 [facility] White Blood 10.2 N 3.5-10.8 [phone] Count 10^3/uL Red Blood Count 6.45 10^6/uL High 4.0-5.4 Hemoglobin 19.0 g/dL High 14.0-18.0 Hematocrit 57 % High 42-52 Mean Corpuscular Volume 88 fL N 80-94 Mean Corpuscular Hemoglobin 30 pg N 27-31 Mean Corpuscular HGB Conc 34 g/dL N 31-36 Red Cell Distribution Width 14 % N 10.5-15 Platelet Count 216 10^3/uL N 150-450 Mean Platelet Volume 8 um3 N 7.4-10.4 Abs Neutrophils 7.3 10^3/uL N 1.5-7.7 Abs Lymphocytes 1.7 10^3/uL N 1.0-4.8 Abs Monocytes 1.0 10^3/uL High 0-0.8 Abs Eosinophils 0.1 10^3/uL N 0-0.6 Abs Basophils 0.1 10^3/uL N 0-0.2 Abs Nucleated RBC 0.01 10^3/uL N Granulocyte % 71.5 % N 38-83 Lymphocyte % 16.4 % Low 25-47 Monocyte % 10.0 % High 1-9 Eosinophil % 1.3 % N 0-6 Basophil % 0.8 % N 0-2 Nucleated Red Blood Cells % 0 N Laboratory test 09/22/2016 [facility] Lactic Acid 1.5 mmol/L N 0.5-2.0 36 finding [phone] C Reactive Protein 3.48 mg/L N < 5.00 37 Laboratory test 06/15/2016 [facility] Surgical SEE RESULT 38 finding [phone] Pathology BELOW Comp Metabolic 10/16/2015 [facility] Sodium 139 mmol/ L N 133-14 Panel [phone] Potassium 4.8 mmol/L N 3.5-5.0 Chloride 102 mmol/L N 101-111 Co2 Carbon Dioxide 30 mmol/L N 22-32 Anion Gap 7 mmol/L N 2-11 Glucose 77 mg/dL N 70-100 Blood Urea Nitrogen 14 mg/dL N 6-24 Creatinine 0.88 mg/dL N 0.67-1.17 BUN/Creatinine Ratio 15.9 N 8-20 Calcium 9.7 mg/dL N 8.6-10.3 Total Protein 7.0 g/dL N 6.4-8.9 Albumin 4.5 g/dL N 3.2-5.2 Globulin 2.5 g/dL N 2-4 Albumin/Globulin Ratio 1.8 N 1-3 Total Bilirubin 0.40 mg/dL N 0.2-1.0 Alkaline Phosphatase 65 U/L N 34-104 Alt 30 U/L N 7-52 Ast 19 U/L N 13-39 Egfr Non- 91.3 N >60 Egfr 117.4 N >60 39 Lipid Profile 10/16/2015 [facility] Triglycerides 189 mg/dL N 40 (Trig/Chol/HDL) [phone] Cholesterol 180 mg/dL N 41 HDL Cholesterol 45.6 mg/dL N 42 LDL Cholesterol 97 mg/dL N 43 Laboratory test 10/16/2015 [facility] Hemoglobin A1c 5.3 % N Less than 44 finding [phone] (Glyco HGB) 6.0 CBC Auto Diff 10/16/2015 [facility] White Blood 8.7 N 3.5-10.8 [phone] Count 10^3/uL Red Blood Count 5.76 10^6/uL High 4.0-5.4 Hemoglobin 17.4 g/dL N 14.0-18.0 Hematocrit 53 % High 42-52 Mean Corpuscular Volume 92 fL N 80-94 Mean Corpuscular Hemoglobin 30 pg N 27-31 Mean Corpuscular HGB Conc 33 g/dL N 31-36 Red Cell Distribution Width 14 % N 10.5-15 Platelet Count 201 10^3/uL N 150-450 Mean Platelet Volume 8 um3 N 7.4-10.4 Abs Neutrophils 5.9 10^3/uL N 1.5-7.7 Abs Lymphocytes 1.8 10^3/uL N 1.0-4.8 Abs Monocytes 0.7 10^3/uL N 0-0.8 Abs Eosinophils 0.2 10^3/uL N 0-0.6 Abs Basophils 0 10^3/uL N 0-0.2 Abs Nucleated RBC 0.05 10^3/uL N Granulocyte % 67.7 % N 38-83 Lymphocyte % 21.3 % Low 25-47 Monocyte % 8.3 % N 1-9 Eosinophil % 2.1 % N 0-6 Basophil % 0.6 % N 0-2 Nucleated Red Blood Cells % 0.6 N Lipid Profile 05/28/2014 [facility] Triglycerides 119 mg/dL N 45 (Trig/Chol/HDL) [phone] Cholesterol 149 mg/dL N 46 HDL Cholesterol 36.3 mg/dL N 47 LDL Cholesterol 89 mg/dL N 48 Comp Metabolic Panel 11/24/2013 [facility] Sodium 136 mmol/L 133-145 [phone] Potassium 4.3 mmol/L 3.5-5.0 Chloride 100 mmol/L [...] Egfr Non- 89.7 >60 Egfr 115.3 >60 49 Lipid Profile 11/24/2013 [facility] Triglycerides 181 mg/dL 40-200 (Trig/Chol/HDL) [phone] Cholesterol 199 mg/dL Less than 200 HDL Cholesterol 47 mg/dL 40-60 50 Cholesterol/HDL Ratio 4.2 Average 1-4.44 LDL Cholesterol 115.8 High Less Than 100 51 Laboratory test 11/24/2013 [facility] Hemoglobin A1c 5.3 % Less than 52 finding [phone] Clomipramine 11/24/2013 [facility] Clomipramine 103 70 - 200 [phone] ng/[phone] Desmethylclomipramine 203 ng/ml 150 - 300 53 Basic Metabolic 11/03/2013 [facility] Sodium 139 mmol /L 133-145 Panel [phone] Potassium 4.6 mmol/L 3.5-5.0 Chloride 103 mmol/L 101-111 Co2 Carbon Dioxide 27.0 mmol/L 22-32 Anion Gap 9.0 mmol/L 2-11 Glucose 63 mg/dL Low 70-100 Blood Urea Nitrogen 16 mg/dL 6-24 Creatinine 0.80 mg/dL 0.50-1.40 BUN/Creatinine Ratio 20.0 8-20 Calcium 9.5 mg/dL 8.1-9.9 Egfr Non- 102.7 >60 Egfr 132.1 >60 54 CBC Auto Diff 11/03/2013 [facility] White Blood 10.7 10^3/uL 4.8-10.8 [phone] Count Red Blood Count 6.05 10^6/uL High [...] Abs Nucleated RBC 0.01 10^3/uL Statin 11/03/2013 [facility] Ast 22 U/L 12-42 [phone] Alt 47 U/L 14-54 Lipid Profile 11/03/2013 [facility] Triglycerides 162 mg/dL 40-200 (Trig/Chol/HDL) [phone] Cholesterol 184 mg/dL Less than 200 HDL Cholesterol 45 mg/dL 40-60 55 Cholesterol/HDL Ratio 4.1 Average 1-4.44 LDL Cholesterol 106.6 High Less Than 100 56 Manual Differential 11/03/2013 [facility] Neutrophil % 73 % 38-83 [phone] Band % 1 % 0-8 Lymphocytes % 17 % Low 25-47 Monocytes % 9 % 0-13 RBC Morphology Normal Normal Laboratory test 08/02/2013 In House Lab Strep Screen neg Neg finding ([phone] - CBC Auto Diff 06/30/2013 [facility] White Blood 9.5 10^3/uL 4.8-10.8 [phone] Count Red Blood Count 6.26 10^6/uL High [...] Nucleated RBC 0 10^3/uL Basic Metabolic 06/30/2013 [facility] Sodium 136 mmol /L 133-145 Panel [phone] Potassium 4.5 mmol/L 3.5-5.0 Chloride 105 mmol/L 101-111 Co2 Carbon Dioxide 24.0 mmol/L 22-32 Anion Gap 7.0 mmol/L 2-11 Glucose 82 mg/dL 70-100 Blood Urea Nitrogen 16 mg/dL 6-24 Creatinine 0.80 mg/dL 0.50-1.40 BUN/Creatinine Ratio 20.0 8-20 Calcium 9.3 mg/dL 8.1-9.9 Egfr Non- 103.2 >60 Egfr 132.7 >60 57 Lipid Profile 06/30/2013 [facility] Triglycerides 125 mg/dL 40-200 (Trig/Chol/HDL) [phone] Cholesterol 167 mg/dL Less than 200 HDL Cholesterol 36 mg/dL Low 40-60 58 Cholesterol/HDL Ratio 4.6 Average High 1-4.44 LDL Cholesterol 106.0 High Less Than 100 59 Statin 06/30/2013 [facility] Ast 24 U/L 12-42 [phone] Alt 48 U/L 14-54 Manual Differential 06/30/2013 [facility] Neutrophil % 54 % 38-83 [phone] Lymphocytes % 35 % 25-47 Monocytes % 5 % 0-13 Eosinophils % 1 % 0-6 Basophil % 1 % 0-2 Reactive Lymph % 4 % 0-6 RBC Morphology Normal Normal Basic Metabolic 02/27/2013 [facility] Sodium 139 mmol /L 133-145 Panel [phone] Potassium 4.6 mmol/L 3.5-5.0 Chloride 104 mmol/L 101-111 Co2 Carbon Dioxide 28.0 mmol/L 22-32 Anion Gap 7.0 mmol/L 2-11 Glucose 86 mg/dL 70-100 Blood Urea Nitrogen 15 mg/dL 6-24 Creatinine 0.90 mg/dL 0.50-1.40 BUN/Creatinine Ratio 16.7 8-20 Calcium 9.8 mg/dL 8.1-9.9 Egfr Non- 90.1 >60 Egfr 115.8 >60 60 Statin 02/27/2013 [facility] Ast 23 U/L 12-42 [phone] Alt 47 U/L 14-54 Lipid Profile 02/27/2013 [facility] Triglycerides 134 mg/dL 40-200 (Trig/Chol/HDL) [phone] Cholesterol 158 mg/dL Less than 200 HDL Cholesterol 35 mg/dL Low 40-60 61 Cholesterol/HDL Ratio 4.5 Average High 1-4.44 LDL Cholesterol 96.2 mg/dL Less Than 100 62 1 [id number] 2 Consistent with Previous Results Reported on 12/23/2018 3 Because ethnic data is not always readily [...] 15-29 5 Kidney failure <15 (or dialysis) 4 Consistent with Previous Results Reported on 08/25/2018 5 [id number] 7 [id number] 8 [id number] 9 Desirable: <150 Borderline High: 150-199 High: 200-499 Very High: >500 10 Desirable: <200 Borderline High: 200-239 High: >239 11 Low: <40 Desirable: 40-60 High: >60 12 Desirable: <100 Near Optimal: 100-129 Borderline High: 130-159 High: 160-189 Very High: >189 13 [id number] 14 Because ethnic data is not always readily [...] 15-29 5 Kidney failure <15 (or dialysis) 15 Acute inflammation: >10.00 16 [place] Severe Sepsis and Septic Shock Management Bundle Measure requires all lactic acids initially measuring >2.0 mmol/L be repeated. 17 SEE RESULT BELOW Name: LISA CARDOZA : [address]: Marge Trujillo MD Acct: [id number] Unit: [id number] AGE: 52 Location: ED Re01/06/18 SEX: M Status: DEP ER SPEC: [id number] KAY: 01/06/18-0 [facility] DR: Marge Trujillo MD REQ: [id number] RECD: 01/06/189 STATUS: COMP [facility] DR: Delfina Tidwell [employer] _ SOURCE: NO SOURCE SPDESC: ORDERED: Blood Cult Procedure Result Reported Site Aerobic Culture Bottle Final 01/11/18- 9 ML No Growth Day 5 Anaerobic Culture Bottle Final 01/11/18- 9 ML No Growth Day 5 * ML - Main Lab . END OF REPORT DEPARTMENT OF PATHOLOGY, [address] [place] [address] Brennen Patel M.D. Director [facility] # [id number] 18 Test Performed by: [facility] - [address] [address] 19 [id number] 20 Acute inflammation: >10.00 21 No bands detected 22 No bands detected 23 Specific serologic response to B. burgdorferi infection [...] screening test (e.g., EIA). Test Performed by: [facility] - [address] [address] 24 ADDITIONAL INFORMATION This test was developed and its performance characteristics determined by [facility] in a manner consistent with CLIA requirements. This test has not been cleared or approved by the U.S. Food and Drug Administration. 25 ADDITIONAL INFORMATION This test was developed and its performance characteristics determined by [facility] in a manner consistent with CLIA requirements. This test has not been cleared or approved by the U.S. Food and Drug Administration. 26 ADDITIONAL INFORMATION This test was developed and its performance characteristics determined by [facility] in a manner consistent with CLIA requirements. This test has not been cleared or approved by the U.S. Food and Drug Administration. Test Performed by: [facility] - [address] [address] 27 Consistent with previous results on 09/22/16. 28 Because ethnic data is not always [...] 5 Kidney failure <15 (or dialysis) 29 [id number] 30 Serologic response to B. burgdorferi infection is not detected, but cannot rule out early infection during which low or undetectable antibody levels to B. burgdorferi may be present. If clinically indicated, a new serum specimen should be submitted in 7-14 days. Test Performed by: [facility] - [address] [address] 31 ADDITIONAL INFORMATION This test was developed and its performance characteristics determined by [facility] in a manner consistent with CLIA requirements. This test has not been cleared or approved by the U.S. Food and Drug Administration. Test Performed by: [facility] - [address] [address] 32 Referred to dermatology 33 SEE RESULT BELOW Name: LISA CARDOZA : [address]: Lauri Aly MD Acct: [id number] Unit: [id number] AGE: 51 Location: [facility] Re03/08/17 SEX: M Status: REG REF SPEC: [id number] KAY: 03/08/[address]: Lauri Aly MD REQ: [id number] RECD: 03/08/17 STATUS: SOUT _ ORDERED: LEVEL 4 COMMENTS: [id number] FINAL DIAGNOSIS Skin, right cheek, biopsy: -- [...] performed at Main Lab DEPARTMENT OF PATHOLOGY, [address] [place] [address] Brennen Patel M.D. Director [facility] # [id number] 34 Because ethnic data is not always readily [...] 15-29 5 Kidney failure <15 (or dialysis) 35 NOTE: Critical Troponin is now >0.03 ng/mL. 99th percentile=0.04 ng/mL Troponin results at [facility] and [facility] are not interchangeable. 36 [facility] Severe Sepsis and Septic Shock Management Bundle Measure requires all lactic acids initially measuring >2.0 mmol/L be repeated. 37 Acute inflammation: >10.00 38 SEE RESULT BELOW Name: LISA CARDOZA : [address]: Lauri Aly MD Acct: [id number] Unit: [id number] AGE: 50 Location: [facility] Re06/15/16 SEX: M Status: REG REF SPEC: [id number] KAY: 06/15/16-1053 [facility] DR: Lauri Aly MD REQ: [id number] RECD: 06/15/160151 STATUS: SOUT _ ORDERED: LEVEL III FINAL [...] Signed (signature on file) Brennen Patel MD 1306 END OF REPORT * ML=Testing performed at Main Lab DEPARTMENT OF PATHOLOGY, [address] [place] [address] Brennen Patel M.D. Director [facility] # [id number] 39 Because ethnic data is not always readily [...] 15-29 5 Kidney failure <15 (or dialysis) 40 Desirable <150 Borderline high 150-199 High 200-499 Very High >500 41 Desirable <200 Borderline high 200-239 High >239 42 Low <40 Desirable: 40-60 High: >60 43 Desirable: <100 mg/dL Near Optimal: 100-129 mg/dL Borderline High: 130-159 mg/dL High: 160-189 mg/dL Very High: >189 mg/dL 44 Therapeutic target for the treatment of diabetes Mellitus patients is <7% HBA1C, and in selective patients <6.0%.Please refer to [place] [employer] Diabetic care guidelines for further information. 45 Desirable <150 Borderline high 150-199 High 200-499 Very High >500 46 Desirable <200 Borderline high 200-239 High >239 47 Low <40 Desirable: 40-60 High: >60 48 Desirable <100 Near Optimal 100-129 Borderline high 130-159 High 160-189 Very High >189 49 Because ethnic data is not always readily [...] 15-29 5 Kidney failure <15 (or dialysis) 50 HDL Interpretation: Undesirable: High Risk: Less than 40 mg/dL Desirable: Low Risk: Greater than 60 mg/dL 51 LDL Interpretation: Low Risk Optimal Level: LDL Less than 100 mg/dL Near or Above Optimal: LDL 100-129 mg/dL Borderline High Risk: LDL 130-159 mg/dL High Risk: LDL 160-189 mg/dL Very High Risk: LDL Greater than 189 mg/dL 52 Therapeutic target for the treatment of diabetes Mellitus patients is <7% HBA1C, and in selective patients <6.0%.Please refer to [place] [employer] Association Diabetic care guidelines for further information. 53 Desired clomipramine concentrations for the treatment of chronic pain: 20 - 85 ng/ml. Test Performed by: [facility] [employer]. [address] [place] [id number] 54 Because ethnic data is not always [...] Desirable: Low Risk: Greater than 60 mg/dL 56 LDL Interpretation: Low Risk Optimal Level: LDL Less than 100 mg/dL Near or Above Optimal: LDL 100-129 mg/dL Borderline High Risk: LDL 130-159 mg/dL High Risk: LDL 160-189 mg/dL Very High Risk: LDL Greater than 189 mg/dL 57 Because ethnic data is not always readily [...] 15-29 5 Kidney failure <15 (or dialysis) 58 HDL Interpretation: Undesirable: High Risk: Less than 40 mg/dL Desirable: Low Risk: Greater than 60 mg/dL 59 LDL Interpretation: Low Risk Optimal Level: LDL Less than 100 mg/dL Near or Above Optimal: LDL 100-129 mg/dL Borderline High Risk: LDL 130-159 mg/dL High Risk: LDL 160-189 mg/dL Very High Risk: LDL Greater than 189 mg/dL 60 Because ethnic data is not always readily [...] 15-29 5 Kidney failure <15 (or dialysis) 61 HDL Interpretation: Undesirable: High Risk: Less than 40 MG/DL Desirable: Low Risk: Greater than 60 MG/DL 62 LDL Interpretation: Low Risk Optimal Level: LDL Less than 100 MG/DL Near or Above Optimal: LDL 100-129 MG/DL Borderline High Risk: LDL 130-159 MG/DL High Risk: LDL 160-189 MG/DL Very High Risk: LDL Greater than 189 MG/DL Procedures Date Code Description Status 05/11/2018 62897 EKG, at Least 12 Leads w/Interpretation and Report Completed 03/08/2017 49913 Destruction,Premalignant Lesion,1St Lesion Completed 03/08/2017 52230 BX Of Skin,Tissue, Mucous Membran Completed 10/21/2016 81207 EKG, at Least 12 Leads w/Interpretation and Report Completed 06/15/2016 65513 Excision Of Lesion (Trunk,Arm,Leg) .6 To 1 CM. Completed 12/13/2015 [id number] Colonoscopy Completed 07/16/2014 79962 Incision Of Thrombosed Hemorrhoid,External Completed 11/24/2013 66741 EKG, at Least 12 Leads w/Interpretation and Report Completed Encounters Type Date Location Provider Dx Diagnosis Office Visit 12/21/2018 Main Office Lauri Aly R60.9 Edema, unspecified 3:00p Office Visit 11/16/2018 Main Office Lauri Aly J45.998 Other asthma 11:30a Office Visit 08/05/2018 Main Office Lauri Aly, R09.81 Nasal congestion 1:45p Office Visit 07/11/2018 Main Office Lauri Aly, Z00.00 Encntr for general 1:00p adult medical exam w/o abnormal findings F32.9 Major depressive disorder, single episode, unspecified E03.9 Hypothyroidism, unspecified E78.5 Hyperlipidemia, unspecified K13.79 Other lesions of oral mucosa Z23 Encounter for immunization Office Visit 05/27/2018 11:45a Main Office Lauri Aly S64.02xA Injury of ulnar MD nerve at s/hnd lv of left arm, init Office Visit 05/11/2018 9:30a Main Office Lauri Aly K13.79 Other lesions of oral mucosa Z01.818 Encounter for other preprocedural examination L02.31 Cutaneous abscess of buttock Office Visit 03/14/2018 5:15p Main Office Lauri Aly B37.2 Candidiasis of skin and nail Office Visit 02/18/2018 1:45p Main Office Lauri Aly K13.79 Other lesions of oral mucosa L30.9 Dermatitis, unspecified Office Visit 02/04/2018 4:30p Main Office Ninfa Naylor64.9 Unspecified Storm, [employer] hemorrhoids Office Visit 11/05/2017 2:00p Main Office Lauri M79.671 Pain in right foot MD Sheeba Office Visit 09/15/2017 1:00p Main Office Lauri L30.4 Erythema intertrigo MD Sheeba Office Visit 05/05/2017 11:30a Main Office Delfina Tidwell M86.271 Subacute [employer] osteomyelitis, right ankle and foot R71.8 Other abnormality of red blood cells Office Visit 04/26/2017 3:00p Main Office Shirley Olmedo79.671 Pain in right [employer] foot E07.9 Disorder of thyroid, unspecified Office Visit 03/30/2017 9:45a Main Office Shirley Olmedo79.671 Pain in right [employer] foot Office Visit 03/23/2017 8:45a Main Office Tom Burger R05 Cough III, [employer] Office Visit 03/08/2017 2:15p Main Office Lauri Aly D48.5 Neoplasm of uncertain behavior of skin L57.0 Actinic keratosis S63.610A Unspecified sprain of right index finger, initial encounter Office Visit 03/03/2017 11:00a Main Office Delfina Tidwell, M72.2 Plantar 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 Office Visit 02/09/2017 9:15a Main Office Delfina Tidwell, R23.8 Other skin changes [employer] Office Visit 12/21/2016 10:45a Main Office Delfina Tidwell, L84 Corns and [employer] callosities Office Visit 12/01/2016 3:45p Main Office Tom Burger H65.02 Acute serous otitis III, [employer] media, left ear Office Visit 11/25/2016 3:00p Main Office Delfina Tidwell, L05.91 Pilonidal cyst [employer] without abscess K12.1 Other forms of stomatitis Office Visit 10/21/2016 9:15a Main Office Delfina Tidwell, J30.89 Other allergic [employer] rhinitis Office Visit 09/14/2016 11:15a Main Office Delfina Tidwell, S40.861A Insect bite [employer] (nonvenomous) of right upper arm, init encntr Office Visit 08/18/2016 9:00a Main Office Tom Burger L30.9 Dermatitis , III, [employer] unspecified Office Visit 06/16/2016 11:30a Main Office Tom Burger K12.2 Cellulitis and III, [employer] abscess of mouth Office Visit 06/09/2016 9:00a Main Office Tom Burger L08.9 Local infection of III, [employer] the skin and subcutaneous tissue, unsp Office Visit 11/20/2015 9:30a Main Office Delfina Tidwell, Z00.00 Encntr for general [employer] adult medical exam w/o abnormal findings Office Visit 11/04/2015 2:30p Main Office Lauri L30.9 DermatitisSheeba MD unspecified Office Visit 10/16/2015 11:15a Main Office Delfina Tidwell, I10 Essential [employer] (primary) hypertension E78.5 Hyperlipidemia, unspecified R46.81 Obsessive-compulsive behavior M54.5 Low back pain Office Visit 10/09/2015 4:15p Main Office Lauri M54.5 Low back pain MD Sheeba Office Visit 09/23/2015 4:45p Main Office Ninfa Carter J30.9 Allergic rhinitis, Storm, [employer] unspecified Office Visit 10/11/2014 12:15p Main Office Delfina Tidwell, 110.9 Dermatophytosis [employer] Unspec Site Office Visit 07/27/2014 10:30a Main Office Delifna Tidwell, 455.4 Hemorrhoids External [employer] Thrombosed Office Visit 06/04/2014 9:15a Main Office Delfina Tidwell, 401.9 Hypertension Unspec [employer] Office Visit 05/04/2014 9:00a Main Office Delfina Tidwell, 401.9 Hypertension Unspec [employer] 272.4 Hyperlipidemia Other Unspec Office Visit 02/20/2014 9:30a Main Office Delfina Tidwell, 455.3 Hemorrhoids [employer] External W/O Complication Office Visit 11/03/2013 8:45a Main Office Delfina Tidwell, 401.9 Hypertension Unspec [employer] 272.4 Hyperlipidemia Other Unspec V04.81 Need For Prophylactic Vaccination & Inoculation/Influenza Office Visit 08/31/2013 12:00p Main Office Ninfa Carter 682.8 Cellulitis & Abscess Storm, [employer] Other Spec Sites Office Visit 08/28/2013 10:00a Main Office Delfina Tidwell, 307.49 Sleep Disorder Other [employer] Office Visit 08/02/2013 11:30a Main Office Delfina Tidwell, 786.2 Cough [employer] Office Visit 06/30/2013 9:00a Main Office Delfina Tidwell, 401.9 Hypertension Unspec [employer] 272.4 Hyperlipidemia Other Unspec Office Visit 05/11/2013 12:15p Main Office Lisa Evans, 110.3 Dermatophytosis Suleman Sen & Perianal Area Office Visit 02/27/2013 9:00a Main Office Delfina 401.9 Hypertension Unspec ZAID Tidwell-Nicholas 786.2 Cough Office Visit 11/28/2012 10:00a Main Office LAURENT Olmedo 786.2 Cough 401.9 Hypertension Unspec Office Visit 11/11/2012 11:15a Main Office Ninfa Carter 455.0 Hemorrhoids Internal Storm, ZAID-C W/O Complication 564.00 Constipation Unspecified Office Visit 10/31/2012 10:00a Main Office ZAID Olmedo-Nicholas 786.2 Cough Plan of Treatment 01/06/2019 - Lauri Aly, MDR60.9 Edema, unspecifiedComments:Pt presents after a prior appointment related to edema. He is still having BLE but states that it isimproved with the HCTZ. This, along with other symptoms such as fatigue and SOB could be related to his anemia. He has started taking an iron supplement from the advice of someone not in the office. Wewill check some labs , see below, to assess current state of anemia and iron status. May require referral to hematology in the future.
--- OUTSIDE RECORDS SUMMARY | 2019-01-18 21:31 | XMS REPORT | Continuity of Care Document ---
:1965 External Reference #:[id number] Author Name Nory Hermosillo Care Team Providers Name Role Phone Lauri Aly MD Primary Care Physician Unavailable Payers Date Identification Numbers Payment Provider Subscriber Policy Number: [id number] Medicare Blue Ppo Lisa Cardoza Group Number: [id number] [address] PayID: [id number] VIKTORIYA Mcallister [id number] Effective: 2016 Policy Number: [id number] [facility] Ppo Lisa Cardoza Expires: 2017 Group Number: [id number] [address] PayID: [id number] VIKTORIYA Thakkar [id number] Expires: 2018 Policy Number: [id number] Medicaid Lisa Cardoza Group Name: 1 1 [address] PayID: [id number] [place] [address] Advance Directives Description No Information Available Problems Description No Information Family History Date Family Member(s) Observation Comments General Heart Disease General Hypertension General Stroke General Cancer Social History Type Date Description Comments Sex Unknown Lives With Alone Occupation Disabled Tobacco Use Start: Unknown Patient has never smoked Smoking Status Reviewed: 01/10/19 Patient has never smoked Allergies, Adverse Reactions, Alerts Description No Known Drug Allergies Medications Medication Date Status Form Strength Qnty [...] Day as Needed Mometasone Furoate Active Suspension 50mcg/ Palisade Two Unknown Act Sprays In Each Nostril Every Day Ventolin HFA Active Aerosol 108(90 Inhale Two Unknown Base) Puffs By mcg/Ac Mouth Every 4 t Hours as Needed Quetiapine Fumarate Active Tablets 300mg Take Two Unknown Tablets By Mouth Every Day Trazodone HCL [...] Times A Day Maximum Daily Dose 3 Hydrochlorothiazide Active Tablets 25mg Take One Unknown Tablet By Mouth Every Day Clindamycin HCL 01/31/2018 - Hx Capsules 300mg 15 take one Cuate 04/13/2018 ca tablet by roopa Gurrola mouth three M.D. times a day for 5 days. Probiotic & 01/31/2018 - Hx Capsules 10 Take one Cuate Acidophilus Formula 04/13/2018 ca tablet daily Galileo Extra Strength ps by mouth for M.D. 10 days. Diphenhydramine HCL 01/13/2018 - Hx Tablets 25mg 30 Take 1 by Cuate 04/13/2018 ta mouth three mimi Gurrola times a day M.D. Oxycodone HCL 01/03/2018 - Hx Tablets 5mg 15 1 tab by Noe Carlisle 04/13/2018 ta mouth every 6 mimi Bustos hours as MD needed for pain. Nystatin - Hx Suspension [id number] Swish And Unknown 05/12/2017 Unit/M Swallow 5 ML L By Mouth Four Times A Day For 7 Days Retain In Symbicort - Hx Aerosol 160-4. Inhale Two Unknown 05/12/2017 5mcg/A Puffs By ct Mouth Twice A Day Sulfamethoxazole/Trime - Hx Tablets 800-16 clayton Pughoprim DS 05/31/2017 0mg ZAID Mathis Medications Administered in Office Medication Date Status Form Strength Qnty SIG Indications Ordering Provider Triamcinolone 12/22/ Administered Injection [place] (Kenalog) 2017 MD Carmen Triamcinolone 11/04/ Administered Injection [place] (Kenalog) 2017 MD Carmen Immunizations Description No Information Available Vital Signs Date Vital Result Comment 01/10/2019 10:36am Height 65 inches 5'5" Heart Rate 82 /min BP Systolic 138 mmHg BP Diastolic 80 mmHg Respiratory Rate 25 /min Body Temperature 98.0 F Pain Level 0 10/27/2018 12:07pm Height 65 inches 5'5" Weight 220.00 lb BP Systolic 126 mmHg BP Diastolic 78 mmHg Pain Level 0 BMI (Body Mass Index) 36.6 kg/m2 09/20/2018 10:17am Height 65 inches 5'5" Heart Rate 84 /min BP Systolic Sitting 144 mmHg Lue lg cuff BP Diastolic Sitting 94 mmHg Lue lg cuff Pain Level 0 08/30/2018 9:09am Height 65 inches 5'5" Heart Rate 76 /min BP Systolic 132 mmHg BP Diastolic 70 mmHg Body Temperature 97.7 F Pain Level 0 08/16/2018 12:16pm Heart Rate 80 /min BP Systolic 130 mmHg BP Diastolic 82 mmHg Body Temperature 97.5 F Pain Level 0 07/21/2018 11:56am Height 65 inches 5'5" Weight 220.00 lb Heart Rate 72 /min BP Systolic 144 mmHg BP Diastolic 72 mmHg Respiratory Rate 12 /min Pain Level 4 BMI (Body Mass Index) 36.6 kg/m2 07/05/2018 11:31am Height 65 inches 5'5" Weight 220.00 lb Heart Rate 78 /min BP Systolic 146 mmHg BP Diastolic 74 mmHg Respiratory Rate 12 /min Pain Level 5 BMI (Body Mass Index) 36.6 kg/m2 06/16/2018 11:29am Height 65 inches 5'5" Weight 220.00 lb Heart Rate 84 /min BP Systolic Sitting 126 mmHg BP Diastolic Sitting 80 mmHg Respiratory Rate 16 /min Pain Level 0 BMI (Body Mass Index) 36.6 kg/m2 04/14/2018 10:28am Height 65 inches 5'5" Weight 220.00 lb Heart Rate 67 /min Respiratory Rate 15 /min Pain Level 2 BMI (Body Mass Index) 36.6 kg/m2 03/24/2018 11:39am Height 65 inches 5'5" Weight 220.00 lb Heart Rate 72 /min BP Systolic Sitting 134 mmHg BP Diastolic Sitting 84 mmHg Respiratory Rate 19 /min Body Temperature 97.0 F Pain Level 0 BMI (Body Mass Index) 36.6 kg/m2 03/03/2018 10:56am Height 65 inches 5'5" Weight 220.00 lb BP Systolic 134 mmHg BP Diastolic 82 mmHg Respiratory Rate 20 /min Body Temperature 97.7 F Pain Level 0 BMI (Body Mass Index) 36.6 kg/m2 02/28/2018 11:44am Height 65 inches 5'5" Weight 220.00 lb BP Systolic 142 mmHg BP Diastolic 80 mmHg Respiratory Rate 18 /min Pain Level 0 BMI (Body Mass Index) 36.6 kg/m2 02/25/2018 11:42am Heart Rate 74 /min BP Systolic 138 mmHg BP Diastolic 78 mmHg Respiratory Rate 14 /min Body Temperature 98.3 F Pain Level 0 02/08/2018 11:18am Heart Rate 88 /min BP Systolic 130 mmHg BP Diastolic 80 mmHg Respiratory Rate 16 /min Body Temperature 97.2 F 01/18/2018 9:29am Height 65 inches 5'5" Weight 215.00 lb Heart Rate 94 /min Respiratory Rate 15 /min Body Temperature 98.4 F Pain Level 6 BMI (Body Mass Index) 35.8 kg/m2 01/13/2018 9:46am Height 65 inches 5'5" Weight 215.00 lb BP Systolic 122 mmHg BP Diastolic 68 mmHg Respiratory Rate 20 /min Body Temperature 97.8 F Pain Level 5 BMI (Body Mass Index) 35.8 kg/m2 12/28/2017 11:27am Height 65 inches 5'5" Weight 215.00 lb Heart Rate 88 /min Respiratory Rate 17 /min Body Temperature 98.1 F Pain Level 0 BMI (Body Mass Index) 35.8 kg/m2 12/14/2017 11:33am Height 65 inches 5'5" Weight 215.00 lb Heart Rate 83 /min Respiratory Rate 14 /min Body Temperature 97.3 F Pain Level 5 BMI (Body Mass Index) 35.8 kg/m2 11/18/2017 10:00am Height 65 inches 5'5" Weight 215.00 lb Heart Rate 79 /min BP Systolic 125 mmHg BP Diastolic 85 mmHg Body Temperature 96.5 F BMI (Body Mass Index) 35.8 kg/m2 09/10/2017 11:56am Height 65 inches 5'5" Weight 226.00 lb Heart Rate 82 /min Respiratory Rate 18 /min Body Temperature 98.1 F Pain Level 0 BMI (Body Mass Index) 37.6 kg/m2 08/26/2017 1:21pm Height 65 inches 5'5" Weight 226.00 lb BP Systolic 120 mmHg BP Diastolic 70 mmHg Respiratory Rate 20 /min Pain Level 0 BMI (Body Mass Index) 37.6 kg/m2 07/16/2017 11:07am Heart Rate 68 /min BP Systolic Sitting 118 mmHg BP Diastolic Sitting 90 mmHg Body Temperature 97.2 F 06/18/2017 10:37am Heart Rate 72 /min BP Systolic 115 mmHg BP Diastolic 90 mmHg Body Temperature 96.7 F 06/01/2017 11:54am Height 65 inches 5'5" Weight 226.00 lb Heart Rate 80 /min BP Systolic Sitting 138 mmHg BP Diastolic Sitting 96 mmHg Respiratory Rate 14 /min Body Temperature 97.5 F BMI (Body Mass Index) 37.6 kg/m2 05/27/2017 10:45am Height 65 inches 5'5" Weight 218.00 lb Heart Rate 78 /min BP Systolic 132 mmHg BP Diastolic 92 mmHg Respiratory Rate 18 /min Body Temperature 97.4 F BMI (Body Mass Index) 36.3 kg/m2 05/13/2017 4:00pm Height 65 inches 5'5" Weight 221.00 lb Heart Rate 72 /min BP Systolic Sitting 120 mmHg BP Diastolic Sitting 84 mmHg Respiratory Rate 14 /min Body Temperature 99.0 F BMI (Body Mass Index) 36.8 kg/m2 05/06/2017 11:09am Height 65 inches 5'5" Weight 218.00 lb Heart Rate 90 /min BP Systolic 134 mmHg BP Diastolic 86 mmHg Respiratory Rate 18 /min Body Temperature 97.7 F Pain Level 5 BMI (Body Mass Index) 36.3 kg/m2 11/26/2016 9:59am Height 64 inches 5'4" Weight 215.00 lb Heart Rate 62 /min BP Systolic 116 mmHg BP Diastolic 82 mmHg Respiratory Rate 16 /min Body Temperature 96.9 F BMI (Body Mass Index) 36.9 kg/m2 Results Test Date Facility Test Result H/L Range Note Laboratory test 05/25/2018 [facility] Surgical SEE RESULT [address] [place] [address] [phone] CBC Auto Diff 12/31/2017 [facility] White Blood 11.3 High 3.5- 10.[address] Count 10^3/[place] [address] [phone] Red Blood Count 5.79 10^6/uL High 4.0-5.4 [...] 0-2 Nucleated Red Blood Cells % 0.7 HIV 1/2 AB 05/18/2017 [facility] HIV 1 2 Nonreactive N Nonreactive [address] [place] [address] [phone] CBC Auto Diff 05/18/2017 [facility] White Blood 8.9 10^3/uL N 3.5-10.[address] [place] [address] [phone] Red Blood Count 6.13 10^6/uL High 4.0-5.4 Hemoglobin 18.4 g/dL High 14.0-18.0 Hematocrit 56 % High 42-52 Mean Corpuscular Volume 91 fL N 80-94 Mean Corpuscular Hemoglobin 30 pg N 27-31 Mean Corpuscular HGB Conc 33 g/dL N 31-36 Red Cell Distribution Width 14 % N 10.5-15 Platelet Count 220 10^3/uL N 150-450 Mean Platelet Volume 8 um3 N 7.4-10.4 Abs Neutrophils 5.7 10^3/uL N 1.5-7.7 Abs Lymphocytes 2.1 10^3/uL N 1.0-4.8 Abs Monocytes 1.0 10^3/uL High 0-0.8 Abs Eosinophils 0.2 10^3/uL N 0-0.6 Abs Basophils 0 10^3/uL N 0-0.2 Abs Nucleated RBC 0.01 10^3/uL N Granulocyte % 63.5 % N 38-83 Lymphocyte % 23.5 % Low 25-47 Monocyte % 10.8 % High 1-9 Eosinophil % 1.8 % N 0-6 Basophil % 0.4 % N 0-2 Nucleated Red Blood Cells % 0.1 N Laboratory 05/18/2017 [facility] Hepatitis C Nonreactive N Nonreactive test finding [address] [place] [address] [phone] C Reactive Protein 2.52 mg/L N < 5.00 3 Laboratory test 04/26/2017 [facility] Erythrocyte Sed 0 mm/Hr N 0-20 [address] [place] [address] [phone] Lyme Disease Serology Negative N Negative 5 Vitamin D, 1,25 Dihydroxy 33 pg/mL N 18-64 6 CBC Auto Diff 04/26/2017 [facility] White Blood 9.5 10^3/uL N 3.5-10.[address] [place] [address] [phone] Red Blood Count 6.50 10^6/uL High 4.0-5.4 Hemoglobin 19.8 g/dL High 14.0-18.0 Hematocrit 61 % High 42-52 Mean Corpuscular Volume 94 fL N 80-94 [...] Nucleated Red Blood Cells % 0.9 N Laboratory test 04/26/2017 [facility] C Reactive 18.21 mg/L High < 5.[address] Protein [place], [place] [address] [phone] 1 SEE RESULT BELOW Name: LISA CARDOZA : [address]: Mark Santana MD Acct: [id number] Unit: [id number] AGE: 52 Location: OR Re05/25/18 SEX: M Status: RAISSA SEAMAN SPEC: [id number] KAY: 05/25/18- SUBM DR: Mark Santana MD REQ: [id number] RECD: 05/25/18 STATUS: SOUT _ ORDERED: LEVEL [...] CONTINUED ON NEXT PAGE DEPARTMENT OF PATHOLOGY, [address] [place] [address] Brennen Patel M.D. Director [facility] # [id number] RUN DATE: 05/30/18 [facility] LAB LIVE PAGE 2 Patient: LISA CARDOZA M [id number] (Continued) GROSS DESCRIPTION (Continued) GROSS DESCRIPTION The [...] 1255 END OF REPORT DEPARTMENT OF PATHOLOGY, [address] [place] [address] Brennen Patel M.D. Director [facility] # [id number] 2 It is recognized that currently available assays [...] 95% confidence interval of 99.78 to 99.96%. 3 Acute inflammation: >10.00 4 [id number] Serologic response to B. burgdorferi infection is not detected, but cannot rule out early infection during which low or undetectable antibody levels to B. burgdorferi may be present. If clinically indicated, a new serum specimen should be submitted in 7-14 days. Test Performed by: [address] [address] 6 ADDITIONAL INFORMATION This test was developed and its performance characteristics determined by [facility] in a manner consistent with CLIA requirements. This test has not been cleared or approved by the U.S. Food and Drug Administration. Test Performed by: [facility] - [address] [address] 7 Acute inflammation: >10.00 Procedures Date Code Description Status 01/03/2018 36246 Repair Nonunion/Malunion Metatarsal Completed 01/03/2018 10913 Repair Nonunion/Malunion Metatarsal Completed 12/22/2017 24951 Injection Intralesional Up To And Including 7 Lesions Completed 11/04/2017 09619 Injection Intralesional Up To And Including 7 Lesions Completed 10/08/2017 78833 Dest Lesion Each Addl Lesion 2 Through 14 Each Completed 10/08/2017 77322 Destruction ALL Benign Or Premalignant Lesion (Other Than Completed [place] 08/27/2017 27626 Destruction ALL Benign Or Premalignant Lesion (Other Than Completed [place] 05/06/2017 39986 FX Metatarsal Care Completed 03/18/2017 12952 Repair Immediate Wound 2.6-5CM Completed Face/Ear/Eyelid/Nose/Lip/Muc Mem 03/18/2017 32969 Excise Malig Lesion 1.1-2CM Face/Ear/Eyelid/Nose/Lip Completed Encounters Type Date Location Provider Dx Diagnosis Office Visit 11/17/2018 [facility] [place] Morales MD L82.1 Other seborrheic 10:00a keratosis D22.9 Melanocytic nevi, unspecified Z08 Encntr for follow-up exam after trtmt for malignant neoplasm Z85.828 Personal history of other malignant neoplasm of skin Office Visit 10/27/2018 11:30a [facility] S92.324K Nondisp fx of [facility] Gurrola 2nd metatarsal [facility] joselin r ft, 7thK Office Visit 09/20/2018 10:30a [facility] S92.324K Nondisp fx of [facility] [place] 2nd metatarsal [facility] bone r ft, 7thK Office Visit 08/30/2018 8:45a [facility] S92.324K Nondisp fx of [facility] Gurrola 2nd metatarsal [facility]. joselin r ft, 7thK Office Visit 08/16/2018 11:30a [facility] S92.324K Nondisp fx of [facility] Gurrola 2nd metatarsal C.M.AGarland bone, r ft, K Office Visit 07/21/2018 11:30a [facility] S92.324G Nondisp fx of [facility] Gurrola 2nd metatarsal C.M.A. bone, r ft, Office Visit 07/05/2018 11:30a [facility] S92.324K Nondisp fx of [facility] [place] Gur[place]a 2nd metatarsal C.M.A. bone, r ft, 7thK Office Visit 06/16/2018 11:15a [facility] S92.324G Nondisp fx of [facility] [place] Gurrola 2nd metatarsal C.M.A. bone, r ft, Office Visit 04/20/2018 11:30a [facility] [place] Morales, L90.5 Scar conditions MD and fibrosis of skin R60.0 Localized edema D22.5 Melanocytic nevi of trunk Z80.8 Family history of malignant neoplasm of organs or systems Z08 Encntr for follow-up exam after trtmt for malignant neoplasm Z85.828 Personal history of other malignant neoplasm of skin Office Visit 04/14/2018 [facility] S92.324K Nondisp fx of 10:15a Services Of Tri Gurrola M.D. 2nd metatarsfior bone, r ft, K Office Visit 02/28/2018 [facility] Brandan R60.0 Localized edema 11:30a Services Of Tri Dooley MD Office Visit 01/06/2018 [facility] L03.115 Cellulitis of 10:43a toro Romo M.D. right lower limb Hospitalists Office Visit 12/14/2017 [facility] S92.324G Nondisp fx of 11:15a Services Of Tri Gurrola M.D. 2nd metatarsfior bone, r ft, G Office Visit 11/18/2017 [facility] Varela2.324D Nondisp fx of 9:45a Services [facility] Tri Gurrola M.D. 2nd metatarsfior bone, r ft, 7thD Office Visit 11/04/2017 [facility] [place] Morales, L21.8 Other seborrheic 11:30a dermatitis L90.5 Scar conditions and fibrosis of skin Office Visit 09/10/2017 [facility] Brandan Dooley, S92.324S Nondisp fx of 11:30a Services Of MD albright C.M.A. metatarsal bone, right foot, sequela M25.474 Effusion, right foot Office Visit 08/26/2017 1:15p [facility]opedic Loni Mike, S92.324D Nondisp fx of Services Of NILAM 2nd metatarsal C.M.A. bone, r ft, 7thD Office Visit 06/01/2017 11:30a [facility] Deuce Carpenter R60.0 Localized edema For Infectious Macqueen, M.D. Diseases Office Visit 05/13/2017 4:00p [facility] Deuce Carpenter R60.0 Localized edema For Infectious Macramiroen, M.D. Diseases S92.324A Nondisp fx of second metatarsal bone, right foot, init D45 Polycythemia vera S92.324D Nondisp fx of 2nd metatarsal bone, r ft, 7thD Office Visit 03/15/2017 3:20p [facility] [place] Morales, C44.91 Basal cell carcinoma of skin, unspecified Office Visit 11/26/2016 9:45a Surgical Wilber Antunez L05.92 Pilonidal sinus [facility] MD Saleem, without abscess FACS Plan of Treatment Future Appointment(s):01/26/2019 10:45 am - [facility]uate Gurrola M.D. at [facility]01/16/2019 10:45 am - NILAM Hernandez at [facility]01/16/2019 10:45 am - Cuate Gurrola M.D. at [facility]01/10/2019 - [facility]uate Gurrola M.D.T84.84xA Pain due to internal orthopedic prosthetic devices, implantsFollow up:10-14 days postop
--- OUTSIDE RECORDS SUMMARY | 2019-01-18 21:32 | XMS REPORT | Continuity of Care Document ---
:1965 External Reference #:[id number] Author Name Lauri Aly MD Address [address] [place] [address] Care Team Providers Name Role Phone Lauri Aly MD Care Team Information [employer] Operator Unavailable Payers Date Identification Numbers Payment Provider Subscriber Effective: Policy Number: [id number] [facility] Medicare Lisa Cardoza 2015 [employer] PayID: [id number] [address] [address] [place] [address] Expires: 2015 Policy Number: [id number] Medicare - [place] Umd Lisa Cardoza PayID: [id number] [address] [place] [address] Expires: 2018 Policy Number: [id number] Medicaid After Medicare Lisa Cardoza Group Name: 2 1 [address] PayID: [id number] [place] [address] Advance Directives Type Date Description Status Comment Other Directive 03/19/2011 Health Care Proxy Current and Verified Other Directive 03/18/2011 Power Of Store Detective Current and Verified POA Problems Description No [...] Pollen Active 03/14/2018 Ragweed Active 03/14/2018 Alpesh [place] Pollen Extract Active 03/14/2018 Dandelion Extract Active 10/31/2012 NKDA Inactive Medications Medication Date Status Form Strength Qnty SIG Indications Ordering Provider Hydrochlorothiazi 12/21 Active Tablets 12.5mg 30tab 1 tab by R60.9 Lauri s mouth [place] every , MD morning Ventolin HFA 11/16 Active Aerosol 108(90Bas 8gm 1-2 puffs e) four times [place] mcg/Act a day as , MD needed Semprex-D 09/06 Active Capsules 8-60mg 60cap Take One s Capsule By Emma Garcia, Mouth Four [employer] TE[employer]ER-C Times A Day Sudafed 12 Hour 08/05 Active Tablets ER 120mg 30tab 1 tab by R09.81 12HR s mouth [place] twice a , MD day as needed Fluticasone 08/05 Active Suspension 50mcg/Act 16gm 2 sprays Lauri into each [place] nostril , once daily Mucinex 07/23 Active Tablets ER 600mg 60tab take one 12HR s tablet by Emma Garcia, mouth [employer]-C every 12 hours as needed for mucus Xyzal Allergy 07/22 Active Tablets 5mg 60tab 1 tab by Lauri 24H s mouth as [place] needed , Clotrimazole/Beta 03/14 Active Cream 1-0.05% 15gm 1 apply to B37.2 Lauri methasone affected [place] Dipropionate area twice , MD a day for 2 weeks Proctozone-HC 02/04 Active Cream 2.5% 30gm apply to K64.9 hemorrhoid Emma Garcia, s 3 - 4 [employer]ER[employer]C times daily if needed Lidocaine-Priloca 02/04 Active Cream 2.5-2.5% 25gm apply pea K64.9 w sized area Emma Garcia, 3 to 4 [employer]ER[employer]C times daily for pain Levothroid 11/25 Active Tablets 88mcg ZAID [place]-Nicholas Lorazepam 11/06 Active Tablets 1mg 1 po tid ZAID [place]-Nicholas Trazodone HCL 11/06 Active Tablets 50mg 30tab take 1 Delfina s tablet po [place], bid [employer]ER[employer]C Simvastatin 11/06 Active Tablets 20mg 90tab take one Lauri s tablet by Sheeba mouth at MD bedtime for cholestero l Montelukast 10/31 Active Tablets 10mg 30tab Take One R05 Lauri Sodium s Tablet By Sheeba Mouth AT MD Bedtime Abilify Active Tablets 10mg 1 po hs Unknown /0000 Hydroxyzine HCL Active Tablets 50mg 60tab 1 tab po Unknown / s tid Clomipramine HCL Active Capsules 50mg 1 tab po Unknown bid Androgel Active Gel 25mg/2.5G apply 1 Unknown /0000 M packet to skin once daily Quetiapine Active Tablets 300mg take 2 Unknown Fumarate /0000 tablets po q hs Gabapentin Active Capsules 300mg 90cap 1 tablet Unknown / s po tid Hydrocodone Active Solution 7.5-325mg [place] Bitartrate/Acetam / /15ML ,Mark ledesma M.D. Trazodone HCL Active Tablets 50mg Take One Unknown Tablet By Mouth Twice A Day Zyrtec Allergy 07/17 Hx Capsules 10mg 30cap 1 by mouth Lauri s every day Sheeba Mujica MD 07/22 Econazole Nitrate 09/17 Hx Cream 1% 30gm apply twice a [place], - day to [employer]ER[employer]C 03/14 groin rash as directed for 2-4 weeks Clotrimazole/Beta 09/15 Hx Cream 1-0.05% 15gm 1 apply to L30.4 Lauri methasone /2016 affected [place] Dipropionate - area twice , 03/14 a day for 1 week Semprex-D 07/29 Hx Capsules 8-60mg 60cap take one s capsule by Sheeba - mouth four , 07/17 times a day Bactrim DS 05/05 Hx Tablets 800-160mg 20tab 1 by mouth M86.271 s twice a [place], - day x 10 [employer] Meloxicam 04/26 Hx Tablets 15mg 30tab 1 by mouth M72.2 s every day, Ke[place], - take with [employer]ER[employer]C 03/14 food Mucinex 03/23 Hx Tablets ER 600mg 60tab take 1 R05 12HR s tablet by [place], - mouth [employer]ER[employer]C 07/29 twice a day as needed for cough and to think mucus..mi nk extra water Meloxicam 03/03 Hx Tablets 7.5mg 60tab take 1 M72.2 s tablet by [place], - mouth [employer]ER[employer]C 04/26 twice daily with food for back pain Keflex 11/27 Hx Capsules 500mg 10cap 1 tab by Delfina s mouth [place], - twice a [employer]ER[employer]C Augmentin 11/25 Hx Tablets 875-125mg 20tab 1 by mouth L05.91 s twice a [place], - day for [employer] TE[employer]ER-C 02/09 infection, take for 10 days Ibuprofen 11/25 Hx Tablets 600mg 120ta take one bs tablet by [place], - mouth 4 [employer]ER[employer]C 03/14 daily with food as needed for pain Loratadine 11/22 Hx Tablets 10mg 30tab 1 by mouth s every day [place], - [employer] TE[employer]ER-C 03/14 Doxycycline 09/14 Hx Capsules 100mg 2caps 2 tablets S40.861A Delfina Monohydrate /2015 by mouth [place], - now [employer] TE[employer]ER-C 10/21 Triamcinolone 08/18 Hx Cream 0.1% 15gm apply to L30.9 Tom Acetonide /2015 affected [place] - area 2-3 III, 02/09 times [employer]ER-C daily Cephalexin 06/16 Hx Tablets 500mg 14tab 1 tablet K12.2 Tom s by mouth [place] - twice III, 11/25 daily 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 may repeat x1 Zyrtec Allergy 10/16 Hx Tablets 10mg 30tab 1 by mouth s every day [place], - as needed [employer]ER[employer]C 11/20 allergies Mucinex 09/23 Hx Tablets ER 600mg 60tab take 1 J30.9 12HR s tablet by Emma Garcia, - mouth [employer]ER-C 11/20 twice day as needed for cough and to think mucus..dri nk extra water Econazole Nitrate 10/11 Hx Cream 1% 15gm apply to 110.9 groin area [place], - twice a [employer]ER[employer]C Valium 09/24 Hx Tablets 2mg 2tabs 1 by mouth 30 min Emma Garcia, - prior to [employer] TE[employer]ER-C 09/26 procedure may repeat in one hour if needed Anusol-HC 08/15 Hx Cream 2.5% 30uni Apply To 455.0 ts Rectum Emma Garcia, - Three [employer]ER[employer]C 09/27 Times Day as Needed Oxycodone HCL 07/16 Hx Tablets 5mg 5five 1 by mouth 455.4 q6hr as [place], - needed [employer]ER[employer]C 09/23 severe 2015 pain Lisinopril 05/04 Hx Tablets 5mg 30tab 1 by mouth s every day [place], - replaces [employer]ER[employer]C 06/04 10 mg dose Sulfamethoxazole/ 08/31 Hx Tablets 800-160mg 20tab 1 po bid 682.8 [place] Trimethoprim s for Emma Garcia, - infection, [employer]ER[employer]C 06/04 take 10 days Fluticasone 06/30 Hx Suspension 50mcg/Act 16gm 2 sprays Delfina Propionate into each [place], - nostril [employer]ER[employer]C 11/25 once daily Miralax 11/11 Hx Packet [id number] 1mont 1 packet 564.00 h po daily Emma Garcia, - for [employer] TE[employer]ER-C 02/16 stools, can increase to bid if needed Proctocare-HC 11/11 Hx Cream 2.5% 28.35 Apply To 455.0 units Rectum Emma Garcia, - Three [employer]ER-C 08/15 Times Day as Needed Lisinopril 11/06 Hx Tablets 10mg 30tab Take One s Tablet By Emma Garcia, - Mouth [employer]ER[employer]C 05/04 Every Day Cetirizine HCL 10/31 Hx Tablets 10mg 30tab 1 po qd 786.2 Delfina s [place], - [employer] TE[employer]ER[employer]C 10/31 Levothroid Hx Tablets 75mcg 1 tab po q Celzo, /0000 am on Desi - empty 11/25 stomach hour prior to meal and other meds Loratadine-D 24HR 00 Hx Tablets ER 10-240mg 90tab take one Delfina 24HR s tablet by [place], - mouth [employer]ER[employer]C 11/22 every day Immunizations CPT Code Status Date Vaccine Lot # [id number] Given 07/11/2018 Influenza Virus Vaccine, Quadrivalent, 3 Yr > [id number] Quad, Preserv Free 31637 Given 07/25/2017 Influenza Virus Vaccine, Quadrivalent, 3 Yr > Quad, Preserv Free 68778 Given 03/10/2017 Tdap (Adacel) [id number] 57114 Given 08/04/2016 Influenza Virus Vaccine, Quadrivalent, 3 Yr > Quad, Preserv Free 10960 Given 08/04/2016 Prevnar-13 Pneumococcal Conjugate Vaccine 07083 Given 08/23/2015 Influenza Virus Vaccine, Quadrivalent, 3 Yr > Quad, Preserv Free 41960 Given 11/03/2013 Influenza Vaccine-Preservative Free 3 Yrs And [id number] Above Vital Signs Date Vital Result Comment 12/21/2018 2:43pm Weight 259.00 lb Weight 117.482 [...] Test Result H/L Range Note Laboratory test 12/21/2018 [facility] TSH (Thyroid < pending> finding [phone] Stim Horm) B-Type Natriuretic Peptide BNP <pending> Laboratory test 07/11/2018 [facility] TSH (Thyroid 0.87 mcIU/mL N 0.34-5.60 1 finding [phone] Stim Horm) Free T4 (Free Thyroxine) 0.57 ng/dL Low 0.61-1.12 2 Lipid Profile 07/11/2018 [facility] Triglycerides 230 mg/dL 3 (Trig/Chol/HDL) [phone] Cholesterol 153 mg/dL 4 HDL Cholesterol 38.2 mg/dL 5 LDL Cholesterol 69 mg/dL 6 Laboratory 05/31/2018 [facility] Hepatitis C Nonreactive Nonreactive 7 test finding [phone] Antibody Comp Metabolic 01/06/2018 [facility] Sodium 133 mmol/ L N 133-145 Panel [phone] Potassium 4.0 mmol/L N 3.5-5.0 Chloride 100 [...] Egfr 110.7 >60 8 Laboratory test 01/06/2018 [facility] C Reactive 146.74 mg/L High < 5.00 9 finding [phone] Protein CBC Auto Diff 01/06/2018 [facility] White Blood 12.3 High 3.5-10.8 [phone] Count 10^3/uL Red Blood Count 6.07 10^6/uL [...] Blood Cells % 0.1 Laboratory test 01/06/2018 [facility] Lactic Acid 1.6 mmol/L N 0.5-2.0 10 finding [phone] Inr/Protime 01/06/2018 [facility] Inr 0.99 N 0.77- 1.02 [phone] Laboratory test 01/06/2018 [facility] Partial 30.3 seconds N 26.0-36.3 finding [phone] Thrombo Time PTT Blood Culture SEE RESULT BELOW 11 CBC Auto 12/31/2017 [facility] White Blood 11.3 10^3/ uL High 3.5-10.8 Diff [phone] Count Red Blood Count 5.79 10^6/uL High [...] Red Blood Cells % 0.7 Hemoglobin/Hematacrit 10/04/2017 [facility] Hemoglobin 17.5 N 14.0-18.0 [phone] g/dL Hematocrit 52 % N 42-52 Laboratory test 04/26/2017 [facility] Rheumatoid Factor <15 IU/mL N <15 12 finding [phone] Erythrocyte Sed Rate 0 mm/Hr N 0-20 13 C Reactive Protein 18.21 mg/L High < 5.00 14 Lyme Western 04/26/2017 [facility] Lyme Disease Negative N Negative Blot [phone] IgG Ab WB Lyme Disease IgG Bands Present No bands detecte <SEE NOTE> kDa N 15 Lyme Disease IgM Ab WB Negative N Negative Lyme Disease IgM Bands Present No bands detecte <SEE NOTE> kDa N 16 Lyme Disease Interpretation See Comment N 17 Tick-Borne Panel 04/26/2017 [facility] Babesia Negative N Negative PCR Blood [phone] microti PCR Babesia ducani Negative N Negative Babesia divergens/Mo-1 Negative N Negative 18 Anaplasma phagocytophilum Negative N Negative Ehrlichia chaffeensis Negative N Negative Ehrlichia ewingii/canis Negative N Negative Ehrlichia muris-like Negative N Negative 19 B. miyamotoi PCR, B Negative N Negative 20 CBC Auto Diff 04/26/2017 [facility] White Blood 9.5 10^3/uL N 3.5-10.8 [phone] Count Red Blood Count 6.50 10^6/uL High 4.0-5.4 Hemoglobin 19.8 g/dL High 14.0-18.0 Hematocrit 61 % High 42-52 21 Mean Corpuscular Volume 94 fL N 80-94 [...] % 0.9 N Comp Metabolic Panel 04/26/2017 [facility] Sodium 137 mmol/L N 133-145 [phone] Potassium 4.3 mmol/L N 3.5-5.0 Chloride 104 [...] 81.3 N >60 Egfr 104.5 N >60 22 Laboratory test 04/26/2017 [facility] TSH (Thyroid 2.01 mcIU/mL N 0.34-5.60 23 finding [phone] Stim Horm) Lyme Disease Serology Negative N Negative 24 Vitamin D, 1,25 Dihydroxy 33 pg/mL N 18-64 25 Laboratory test 03/08/2017 [facility] Surgical SEE RESULT 26, 27 finding [phone] Pathology BELOW Comp Metabolic 09/22/2016 [facility] Sodium 135 mmol/ L N 133-1 Panel [phone] Potassium 4.5 mmol/L N 3.5-5.0 Chloride [...] 89.8 N >60 Egfr 115.4 N >60 28 Laboratory test 09/22/2016 [facility] Troponin-I 0.00 ng/mL N <0.04 29 finding [phone] (TnI) CBC Auto Diff 09/22/2016 [facility] White Blood 10.2 N 3.5-10.8 [phone] Count 10^3/uL Red Blood Count 6.45 10^6/uL [...] Cells % 0 N Laboratory test 09/22/2016 [facility] Lactic Acid 1.5 mmol/L N 0.5-2.0 30 finding [phone] C Reactive Protein 3.48 mg/L N < 5.00 31 Laboratory test 06/15/2016 [facility] Surgical SEE RESULT 32 finding [phone] Pathology BELOW Comp Metabolic 10/16/2015 [facility] Sodium 139 mmol/ L N 133-14 Panel [phone] Potassium 4.8 mmol/L N 3.5-5.0 Chloride [...] 91.3 N >60 Egfr 117.4 N >60 33 Lipid Profile 10/16/2015 [facility] Triglycerides 189 mg/dL N 34 (Trig/Chol/HDL) [phone] Cholesterol 180 mg/dL N 35 HDL Cholesterol 45.6 mg/dL N 36 LDL Cholesterol 97 mg/dL N 37 Laboratory test 10/16/2015 [facility] Hemoglobin A1c 5.3 % N Less than 38 finding [phone] (Glyco HGB) 6.0 CBC Auto Diff 10/16/2015 [facility] White Blood 8.7 N 3.5-10.8 [phone] Count 10^3/uL Red Blood Count 5.76 10^6/uL [...] Cells % 0.6 N Lipid Profile 05/28/2014 [facility] Triglycerides 119 mg/dL N 39 (Trig/Chol/HDL) [phone] Cholesterol 149 mg/dL N 40 HDL Cholesterol 36.3 mg/dL N 41 LDL Cholesterol 89 mg/dL N 42 Comp Metabolic Panel 11/24/2013 [facility] Sodium 136 mmol/L 133-145 [phone] Potassium 4.3 mmol/L 3.5-5.0 Chloride 100 mmol/L [...] Egfr 115.3 >60 43 Lipid Profile 11/24/2013 [facility] Triglycerides 181 mg/dL 40-200 (Trig/Chol/HDL) [phone] Cholesterol 199 mg/dL Less than 200 HDL Cholesterol 47 mg/dL 40-60 44 Cholesterol/HDL Ratio 4.2 Average 1-4.44 LDL Cholesterol 115.8 High Less Than 100 45 Laboratory test 11/24/2013 [facility] Hemoglobin A1c 5.3 % Less than 46 finding [phone] 6.0 Clomipramine 11/24/2013 [facility] Clomipramine 103 70 - 200 [phone] ng/ml Desmethylclomipramine 203 ng/ml 150 - 300 47 Basic Metabolic 11/03/2013 [facility] Sodium 139 mmol /L 133-145 Panel [phone] Potassium 4.6 mmol/L 3.5-5.0 Chloride 103 mmol/L 101-111 Co2 Carbon Dioxide 27.0 mmol/L 22-32 Anion Gap 9.0 mmol/L 2-11 Glucose 63 mg/dL Low 70-100 Blood Urea Nitrogen 16 mg/dL 6-24 Creatinine 0.80 mg/dL 0.50-1.40 BUN/Creatinine Ratio 20.0 8-20 Calcium 9.5 mg/dL 8.1-9.9 Egfr Non- 102.7 >60 Egfr 132.1 >60 48 CBC Auto Diff 11/03/2013 [facility] White Blood 10.7 10^3/uL 4.8-10.8 [phone] Count Red Blood Count 6.05 10^6/uL High [...] Abs Nucleated RBC 0.01 10^3/uL Statin 11/03/2013 [facility] Ast 22 U/L 12-42 [phone] Alt 47 U/L 14-54 Lipid Profile 11/03/2013 [facility] Triglycerides 162 mg/dL 40-200 (Trig/Chol/HDL) [phone] Cholesterol 184 mg/dL Less than 200 HDL Cholesterol 45 mg/dL 40-60 49 Cholesterol/HDL Ratio 4.1 Average 1-4.44 LDL Cholesterol 106.6 High Less Than 100 50 Manual Differential 11/03/2013 [facility] Neutrophil % 73 % 38-83 [phone] Band % 1 % 0-8 Lymphocytes % 17 % Low 25-47 Monocytes % 9 % 0-13 RBC Morphology Normal Normal Laboratory test 08/02/2013 In House Lab Strep Screen neg Neg finding [phone] CBC Auto Diff 06/30/2013 [facility] White Blood 9.5 10^3/uL 4.8-10.8 [phone] Count Red Blood Count 6.26 10^6/uL High [...] Nucleated RBC 0 10^3/uL Basic Metabolic 06/30/2013 [facility] Sodium 136 mmol /L 133-145 Panel [phone] Potassium 4.5 mmol/L 3.5-5.0 Chloride 105 mmol/L 101-111 Co2 Carbon Dioxide 24.0 mmol/L 22-32 Anion Gap 7.0 mmol/L 2-11 Glucose 82 mg/dL 70-100 Blood Urea Nitrogen 16 mg/dL 6-24 Creatinine 0.80 mg/dL 0.50-1.40 BUN/Creatinine Ratio 20.0 8-20 Calcium 9.3 mg/dL 8.1-9.9 Egfr Non- 103.2 >60 Egfr 132.7 >60 51 Lipid Profile 06/30/2013 [facility] Triglycerides 125 mg/dL 40-200 (Trig/Chol/HDL) [phone] Cholesterol 167 mg/dL Less than 200 HDL Cholesterol 36 mg/dL Low 40-60 52 Cholesterol/HDL Ratio 4.6 Average High 1-4.44 LDL Cholesterol 106.0 High Less Than 100 53 Statin 06/30/2013 [facility] Ast 24 U/L 12-42 [phone] Alt 48 U/L 14-54 Manual Differential 06/30/2013 [facility] Neutrophil % 54 % 38-83 [phone] Lymphocytes % 35 % 25-47 Monocytes % 5 % 0-13 Eosinophils % 1 % 0-6 Basophil % 1 % 0-2 Reactive Lymph % 4 % 0-6 RBC Morphology Normal Normal Basic Metabolic 02/27/2013 [facility] Sodium 139 mmol /L 133-145 Panel [phone] Potassium 4.6 mmol/L 3.5-5.0 Chloride 104 mmol/L 101-111 Co2 Carbon Dioxide 28.0 mmol/L 22-32 Anion Gap 7.0 mmol/L 2-11 Glucose 86 mg/dL 70-100 Blood Urea Nitrogen 15 mg/dL 6-24 Creatinine 0.90 mg/dL 0.50-1.40 BUN/Creatinine Ratio 16.7 8-20 Calcium 9.8 mg/dL 8.1-9.9 Egfr Non- 90.1 >60 Egfr 115.8 >60 54 Statin 02/27/2013 [facility] Ast 23 U/L 12-42 [phone] Alt 47 U/L 14-54 Lipid Profile 02/27/2013 [facility] Triglycerides 134 mg/dL 40-200 (Trig/Chol/HDL) [phone] Cholesterol 158 mg/dL Less than 200 HDL Cholesterol 35 mg/dL Low 40-60 55 Cholesterol/HDL Ratio 4.5 Average High 1-4.44 LDL Cholesterol 96.2 mg/dL Less Than 100 56 1 [id number] Desirable: <150 Borderline High: 150-199 High: 200-499 Very High: >500 4 Desirable: <200 Borderline High: 200-239 High: >239 5 Low: <40 Desirable: 40-60 High: >60 6 Desirable: <100 Near Optimal: 100-129 Borderline High: 130-159 High: 160-189 Very High: >189 7 [id number] 8 Because ethnic data is not always [...] (or dialysis) 9 Acute inflammation: >10.00 10 [place] Severe Sepsis and Septic Shock Management Bundle Measure requires all lactic acids initially measuring >2.0 mmol/L be repeated. 11 SEE RESULT BELOW Name: LISA CARDOZA : [address]: Marge Trujillo MD Acct: [id number] Unit: [id number] AGE: 52 Location: ED Re01/06/18 SEX: M Status: DEP ER SPEC: [id number] KAY: 01/06/18-229 [facility] DR: Marge Trujillo MD REQ: [id number] RECD: 01/06/18 STATUS: RADHA JAUREGUI DR: Delfina Tidwell 4TH GRADE TE[employer]ER _ SOURCE: NO SOURCE SPDESC: ORDERED: Blood Cult Procedure Result Reported Site Aerobic Culture Bottle Final 01/11/18- 9 ML No Growth Day 5 Anaerobic Culture Bottle Final 01/11/18- 9 ML No Growth Day 5 * ML - Main Lab . END OF REPORT DEPARTMENT OF PATHOLOGY, [address] [place] [address] Brennen Patel M.D. Director [facility] # [id number] 12 Test Performed by: [address] [id number] 13 [id number] 14 Acute inflammation: >10.00 15 No bands [...] screening test (e.g., EIA). Test Performed by: [facility] - [address] [address] 18 ADDITIONAL INFORMATION This test was developed and its performance characteristics determined by [facility] in a manner consistent with CLIA requirements. This test has not been cleared or approved by the U.S. Food and Drug Administration. 19 ADDITIONAL INFORMATION This test was developed and its performance characteristics determined by [facility] in a manner consistent with CLIA requirements. This test has not been cleared or approved by the U.S. Food and Drug Administration. 20 ADDITIONAL INFORMATION This test was developed and its performance characteristics determined by [facility] in a manner consistent with CLIA requirements. This test has not been cleared or approved by the U.S. Food and Drug Administration. Test Performed by: [facility] - [address] [address] 21 Consistent with previous results on 09/22/16. [...] 5 Kidney failure <15 (or dialysis) 23 [id number] 24 Serologic response to B. burgdorferi infection is not detected, but cannot rule out early infection during which low or undetectable antibody levels to B. burgdorferi may be present. If clinically indicated, a new serum specimen should be submitted in 7-14 days. Test Performed by: [facility] - [address] [address] 25 ADDITIONAL INFORMATION This test was developed and its performance characteristics determined by [facility] in a manner consistent with CLIA requirements. This test has not been cleared or approved by the U.S. Food and Drug Administration. Test Performed by: [facility] - [address] [address] 26 Referred to dermatology 27 SEE RESULT BELOW Name: LISA CARDOZA : [address]: Lauri Aly MD Acct: [id number] Unit: [id number] AGE: 51 Location: [facility] Re03/08/17 SEX: M Status: REG REF SPEC: [id number] KAY: 03/08/17 [facility] DR: Lauri Aly MD REQ: [id number] RECD: 03/08/17 STATUS: SOUT _ ORDERED: LEVEL 4 COMMENTS: [id number] FINAL DIAGNOSIS Skin, right cheek, biopsy: -- [...] performed at Main Lab DEPARTMENT OF PATHOLOGY, [address] [place] [address] Brennen Patel M.D. Director [facility] # [id number] 28 Because ethnic data is not always [...] ng/mL. 99th percentile=0.04 ng/mL Troponin results at [facility] and [facility] are not interchangeable. 30 [facility] Severe Sepsis and Septic Shock Management Bundle Measure requires all lactic acids initially measuring >2.0 mmol/L be repeated. 31 Acute inflammation: >10.00 32 SEE RESULT BELOW Name: LISA CARDOZA : [address]: Lauri Aly MD Acct: [id number] Unit: [id number] AGE: 50 Location: [facility] Re06/15/16 SEX: M Status: REG REF SPEC: [id number] KAY: 06/15/16-[address]: Lauri Aly MD REQ: [id number] RECD: 06/15/161207 STATUS: SOUT _ ORDERED: LEVEL III FINAL [...] performed at Main Lab DEPARTMENT OF PATHOLOGY, [address] [place] [address] Brennen Patel M.D. Director [facility] # [id number] 33 Because ethnic data is not always readily [...] 15-29 5 Kidney failure <15 (or dialysis) 34 Desirable <150 Borderline high 150-199 High 200-499 Very High >500 35 Desirable <200 Borderline high 200-239 High >239 36 Low <40 Desirable: 40-60 High: >60 37 Desirable: <100 mg/dL Near Optimal: 100-129 mg/dL Borderline High: 130-159 mg/dL High: 160-189 mg/dL Very High: >189 mg/dL 38 Therapeutic target for the treatment of diabetes Mellitus patients is <7% HBA1C, and in selective patients <6.0%.Please refer to [employer] Diabetic care guidelines for further [...] and in selective patients <6.0%.Please refer to [employer] Diabetic care guidelines for further information. 47 Desired clomipramine concentrations for the treatment of chronic pain: 20 - 85 ng/ml. Test Performed by: [facility]. [address] [place] [address] 48 Because ethnic data is not always [...] MG/DL Procedures Date Code Description Status 05/11/2018 23805 EKG, at Least 12 Leads w/Interpretation and Report Completed 03/08/2017 95454 Destruction,Premalignant Lesion,1St Lesion Completed 03/08/2017 91602 BX Of Skin,Tissue, Mucous Membran Completed 10/21/2016 56934 EKG, at Least 12 Leads w/Interpretation and Report Completed 06/15/2016 99466 Excision Of Lesion (Trunk,Arm,Leg) .6 To 1 CM. 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, init Office Visit 05/11/2018 9:30a Main Office Lauri Aly K13.79 Other lesions MD of oral mucosa Z01.818 Encounter for other preprocedural examination L02.31 Cutaneous abscess of buttock Office Visit 03/14/2018 5:15p Main Office Lauri Aly, B37.2 Candidiasis of skin and nail Office Visit 02/18/2018 1:45p Main Office Lauri Aly, K13.79 Other lesions of oral mucosa L30.9 Dermatitis, unspecified Office Visit 02/04/2018 4:30p Main Office Ninfa Naylor64.9 Unspecified Storm, [employer] hemorrhoids Office Visit 11/05/2017 2:00p Main Office Lauri M79.671 Pain in right foot MD Sheeba Office Visit 09/15/2017 1:00p Main Office Lauri L30.4 Erythema intertrigo MD Sheeba Office Visit 05/05/2017 11:30a Main Office Delfina Tidwell M86.271 Subacute [employer] osteomyelitis, right ankle and foot R71.8 Other abnormality of red blood cells Office Visit 04/26/2017 3:00p Main Office Delfina Tidwell M79.671 Pain in right [employer] foot E07.9 Disorder of thyroid, unspecified Office Visit 03/30/2017 9:45a Main Office Delfina Tidwell M79.671 Pain in right [employer] foot Office Visit 03/23/2017 8:45a Main Office oTm Burger R05 Cough III, [employer] Office Visit 03/08/2017 2:15p Main Office Lauri Aly, D48.5 Neoplasm of uncertain behavior of skin L57.0 Actinic keratosis S63.610A Unspecified sprain of right index finger, initial encounter Office Visit 03/03/2017 11:00a Main Office Delfina Tidwell 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 Office Visit 02/09/2017 9:15a Main Office Delfina Tidwell, R23.8 Other skin changes [employer] Office Visit 12/21/2016 10:45a Main Office Delfina Tidwell, L84 Corns and [employer] callosities Office Visit 12/01/2016 3:45p Main Office Tom Burger H65.02 Acute serous otitis III, [employer] media, left ear Office Visit 11/25/2016 3:00p Main Office Delfina Tidwell, L05.91 Pilonidal cyst [employer] without abscess K12.1 Other forms of stomatitis Office Visit 10/21/2016 9:15a Main Office Delfina Tidwell, J30.89 Other allergic [employer] rhinitis Office Visit 09/14/2016 11:15a Main Office Delfina Tidwell, S40.861A Insect bite [employer] (nonvenomous) of right upper arm, init encntr Office Visit 08/18/2016 9:00a Main Office Tom Burger L30.9 Dermatitis , III, [employer] unspecified Office Visit 06/16/2016 11:30a Main Office Tom Burger K12.2 Cellulitis and III, [employer] abscess of mouth Office Visit 06/09/2016 9:00a Main Office Tom Burger L08.9 Local infection of III, [employer] the skin and subcutaneous tissue, unsp Office Visit 11/20/2015 9:30a Main Office Delfina Tidwell, Z00.00 Encntr for general [employer] adult medical exam w/o abnormal findings Office Visit 11/04/2015 2:30p Main Office Lauri L30.9 DermatitisSheeba MD unspecified Office Visit 10/16/2015 11:15a Main Office Delfina Tidwell, I10 Essential [employer] (primary) hypertension E78.5 Hyperlipidemia, unspecified R46.81 Obsessive-compulsive behavior M54.5 Low back pain Office Visit 10/09/2015 4:15p Main Office Lauri M54.5 Low back pain MD Sheeba Office Visit 09/23/2015 4:45p Main Office Ninfa Carter J30.9 Allergic rhinitis, Storm, [employer] unspecified Office Visit 10/11/2014 12:15p Main Office Delfina Tidwell, 110.9 Dermatophytosis [employer] Unspec Site Office Visit 07/27/2014 10:30a Main Office Delfina Tidwell, 455.4 Hemorrhoids External [employer] Thrombosed Office Visit 06/04/2014 9:15a Main Office Delfina Tidwell, 401.9 Hypertension Unspec [employer] Office Visit 05/04/2014 9:00a Main Office Delfina Tidwell, 401.9 Hypertension Unspec [employer] 272.4 Hyperlipidemia Other Unspec Office Visit 02/20/2014 9:30a Main Office Delfina Tidwell, 455.3 Hemorrhoids [employer] External W/O Complication Office Visit 11/03/2013 8:45a Main Office Delfina Tidwell, 401.9 Hypertension Unspec [employer] 272.4 Hyperlipidemia Other Unspec V04.81 Need For Prophylactic Vaccination & Inoculation/Influenza Office Visit 08/31/2013 12:00p Main Office Ninfa Carter 682.8 Cellulitis & Abscess Storm, [employer] Other Spec Sites Office Visit 08/28/2013 10:00a Main Office Delfina Tidwell, 307.49 Sleep Disorder Other [employer] Office Visit 08/02/2013 11:30a Main Office Delfina Tidwell, 786.2 Cough [employer] Office Visit 06/30/2013 9:00a Main Office Delfina Tidwell, 401.9 Hypertension Unspec [employer] 272.4 Hyperlipidemia Other Unspec Office Visit 05/11/2013 12:15p Main Office Lisa Evans, 110.3 Dermatophytosis Groin M.D. & Perianal Area Office Visit 02/27/2013 9:00a Main Office Delfina 401.9 Hypertension Unspec Keaton, [employer]ER-C 786.2 Cough Office Visit 11/28/2012 10:00a Main Office Delfina Tidwell [employer]C 786.2 Cough 401.9 Hypertension Unspec Office Visit 11/11/2012 11:15a Main Office Ninfa Carter 455.0 Hemorrhoids Internal Storm, [employer]ER[employer] W/O Complication 564.00 Constipation Unspecified Office Visit 10/31/2012 10:00a Main Office Delfina Tidwell [employer] 786.2 Cough Plan of Treatment 12/21/2018 - Lauri Aly, MDR60.9 Edema, unspecifiedNew Medication: Hydrochlorothiazide 12.5 mg - 1 tab by mouth every morningComments:Bilateral edema, acute on chronic. Lab testing to help determine etiology, in the meantime he will try to decrease processed foods and start a low dose diuretic.
[2019-01-18] MEDS ORDERED: methylPREDNISolone 125 MG* 2 ML VIAL IV ONE (22:11)
[2019-01-18] MEDS ORDERED: NS 0.9% 1000 ML** 1,000 ML IV ONE (22:12)
[2019-01-18] MEDS ORDERED: diPHENhydraMINE PO* 50 MG PO ONE (22:12)
[2019-01-18] MEDS ORDERED: Albuterol/Ipratropium NEB.SOL* Albuterol 2.5 MG/Ipratropium 0.5 MG 3 ML INH ONE (22:13)
[2019-01-18] MEDS ORDERED: Lidocaine 2% VISCOUS* 15 ML UDC PO ONE (22:14)
--- NOTE | 2019-01-18 22:39 | ED ---
Respiratory - HPI Summary HPI Summary: 53-year-old male presents with sore throat and cough today. He states his symptoms started earlier today. He states has lungs feels very congested. He admits shortness of breath and no chest pain. Denies any bowel pain. No nausea or vomiting. He states he has having difficulty swallowing. He just had surgery on his foot 2 days ago. He is not currently on antibiotics. He has a history of anxiety and asthma. he also has rash across back. no new soaps or products. He denies any pain or swelling in his calf muscles. He states his throat is bothering him the most and his mouth feels raw. - History of Current Complaint Chief Complaint: EDUpperRespComplaint Stated Complaint: SEVERE CONGESTION, RAW THROAT PER PT Time Seen by Provider: 01/18/19 22:03 Pain Intensity: 9 - Allergy/Home Medications Allergies/Adverse Reactions: Allergies Allergy/AdvReac Type Severity Reaction Status Date / Time ragweed pollen Allergy Intermediate Congestion Verified 01/18/19 21:25 environmental Allergy Congestion Uncoded 01/18/19 21:25 Hayfever Allergy Congestion Uncoded 01/18/19 21:25 PMH/Surg Hx/FS Hx/Imm Hx Endocrine/Hematology History: Reports: Hx Thyroid Disease - on meds Denies: Hx Diabetes, Hx Anemia - blood levels too high, has blood taken to thin out Cardiovascular History: Denies: Hx Congestive Heart Failure, Hx Hypertension, Hx Pacemaker/ICD, Other Cardiovascular Problems/Disorders Respiratory History: Reports: Hx Asthma, Hx Sleep Apnea - no machine GI History: Denies: Hx Gastroesophageal Reflux Disease, Other GI Disorders History: Denies: Hx Renal Disease, Other Problems/Disorders Musculoskeletal History: Reports: Hx Arthritis - hands,, Other Musculoskeletal History - broke back 15 years ago Denies: Hx Rheumatoid Arthritis, Hx Osteoporosis Sensory History: Reports: Hx Contacts or Glasses - reading Denies: Hx Cataracts, Hx Glaucoma, Hx Hearing Aid Opthamlomology History: Reports: Hx Contacts or Glasses - reading Denies: Hx Cataracts, Hx Glaucoma Neurological History: Reports: Hx Migraine - history of, none recent, Other Neuro Impairments/Disorders - Hx LUMBAR Fx Psychiatric History: Reports: Hx Anxiety, Hx Depression Denies: Hx Panic Disorder - Cancer History Hx Chemotherapy: No - Surgical History Surgery Procedure, Year, and Place: PILONIDAL CYST(LOWER BACK) X 4. CYST ON LEFT ELBOW REMOVED. BASAL CELL REMOVED FROM RIGHT CHEEK. RT FT 2ND METATARSAL REPAIR 12/2017 Hx Anesthesia Reactions: No Infectious Disease History: No Infectious Disease History: Denies: Traveled Outside the [place] in Last 30 Days - Family History Known Family History: Negative: Cardiac Disease, Hypertension, Diabetes - Social History Alcohol Use: None Hx Substance Use: No Substance Use Type: Reports: None Substance Use Comment - Amount & Last Used: one drink every two weeks Hx Tobacco Use: No Smoking Status (MU): Never Smoked Tobacco Review of Systems Negative: Fever Negative: Chest Pain Positive: Shortness Of Breath, Cough Positive: Rash All Other Systems Reviewed And Are Negative: Yes Physical Exam Triage Information Reviewed: Yes Vital Signs On Initial Exam: Initial Vitals Temp Pulse Resp BP Pulse Ox 99.6 F 104 16 140/88 97 01/18/19 21:20 01/18/19 21:20 01/18/19 21:20 01/18/19 21:20 01/18/19 21:20 Vital Signs Reviewed: Yes Appearance: Positive: Well-Appearing Skin: Positive: Other - redness across torso Head/Face: Positive: Normal Head/Face Inspection Eyes: Positive: Normal, Conjunctiva Clear ENT: Positive: Pharyngeal erythema, TMs normal, Uvula midline, Other - soft palate symmetric as much as can see, hoarse voice, limited visiblity due to large tongue. Negative: Trismus, Muffled voice Respiratory/Lung Sounds: Positive: Clear to Auscultation, Breath Sounds Present , Wheezes - mild wheezing noted at base Cardiovascular: Positive: Normal, RRR Abdomen Description: Positive: Nontender, Soft Bowel Sounds: Positive: Present Musculoskeletal: Positive: Normal Neurological: Positive: Normal Psychiatric: Positive: Normal Diagnostics - Vital Signs Vital Signs Temp Pulse Resp BP Pulse Ox 01/18/19 21:20 99.6 F 104 16 140/88 97 - Laboratory Result Diagrams: 01/18/19 22:36 01/18/19 23:45 Lab Statement: Any lab studies that have been ordered have been reviewed, and results considered in the medical decision making process. - Radiology chest Radiology Interpretation Completed By: ED Physician Summary of Radiographic Findings: no pneumonia - CT neck CT Interpretation Completed By: Radiologist Summary of CT Findings: IMPRESSION: No acute findings. No evidence of a tonsillar or peritonsillar abscess. No. significant submucosal abnormality. The patient could still have a mucosal. abnormality which is not detected by CT which could be an explanation for the. patient's sore throat. - EKG No standard instances Cardiac Rate: Tachycardia EKG Rhythm: Sinus Tachycardia Summary of EKG Findings: sinus tachycardia Re-Evaluation - Re-Evaluation First Eval Re-Evaluation Time: 22:59 Change: Improved Second Eval Re-Evaluation Time: 23:55 Comment: started to destat Third Eval Re-Evaluation Time: 00:43 Change: Worse Comment: patient became diaphoretic Fourth Eval Re-Evaluation Time: 01:46 Comment: patient no longer diaphoretic. some wheezing noted again Disposition - Course Course Of Treatment: 53-year-old male presents with sore throat and cough today. He states his symptoms started earlier today. He states has lungs feels very congested. He admits shortness of breath but no chest pain. Denies any bowel pain. No nausea or vomiting. He states he has having difficulty swallowing. He just had surgery on his foot 2 days ago. He is not currently on antibiotics. He has a history of anxiety and asthma. he also has rash across back. no new soaps or products. On exam pharynx is unable to assess well due to large tongue. Mouth appears dry. Lungs some wheezing noted. EKG shows sinus tachycardia. wbc elevated at 12. CRP elevated. Troponin .02. D- dimer negative. Strep and flu negative. since d-dimer negative did not get CTA as more considered with the hoarsiness that is a throat pathology that can not accurately assess. gave benadryl and solumedrol incase was having an allergic reaction and patient rash did not change. was feeling better after steriod and breathing treatment. Patient is very anxious and became anxious while in the ED. Patient started to diaphoresis. He states that this is his normal response to anxiety. gave gabapentin and Ativan and diaphoresis resolved. neck CT shows no acute findings. patient o2 on room air 88-90 will give another breathing treatment and some magnesium. attempted to walk patient and he dropped to 85 on room air. patient denies any shortness of breath and is feeling better but is requiring 02 to mantain stats. unclear if decrease stats are due to PE, asthma or pneumonia. discussed case with dr pratt. - Differential Dx - Cardiopulmonary Differential Diagnoses - Cardiopulmonary: Lower Resp Infection, Pulmonary Embolism, Other - pharyngitis - Diagnoses Provider Diagnoses: Asthma, Upper respiratory infection, Shortness of breath Discharge - Sign-Out/Discharge Documenting (check all that apply): Patient Departure - Discharge Plan Condition: Stable Disposition: ADMITTED TO [facility] Referrals: Lauri Aly MD [Primary Care Provider] - - Billing Disposition and Condition Condition: STABLE Disposition: Admitted to [facility]
[2019-01-18 23:02] LABS: Hematocrit 49 % (36-46); Hemoglobin 15.1 g/dL (14.0-18.0); Mean Corpuscular HGB Conc 31 g/dL (31-36); Mean Corpuscular Hemoglobin 21 pg (27-31); Mean Corpuscular Volume 69 fL (80-94); Mean Platelet Volume 8.4 fL (7.4-10.4); Platelet Count 340 10^3/uL (150-450); Red Blood Count 7.06 10^6 /uL (4.18-5.48); Red Cell Distribution Width 28 % (10.5-15); White Blood Count 12.8 10^3/uL (3.5-10.8)
[2019-01-18 23:17] LABS: ALT 22 U/L (7-52); Albumin 4.8 g/dL (3.2-5.2); Albumin/Globulin Ratio 1.5 (1-3); Alkaline Phosphatase 109 U/L (34-104); BUN/Creatinine Ratio 14.3 (8-20); Blood Urea Nitrogen 14 mg/dL (6-24); C Reactive Protein 32.36 mg/L (<8.01); CO2 Carbon Dioxide 27 mmol/L (22-32); Calcium 9.5 mg/dL (8.6-10.3); Chloride 99 mmol/L (101-111); EGFR African American 96.4 (>60); EGFR Non-African American 79.7 (>60); Globulin 3.3 g/dL (2-4); Glucose 82 mg/dL (70-100); Sodium 139 mmol/L (135-145); Total Protein 8.1 g/dL (6.4-8.9)
[2019-01-18 23:24] LABS: Anion Gap 13 mmol/L (2-11)
[2019-01-18 23:30] LABS: Influenza A Molecular NEGATIVE (Negative); Influenza B Molecular NEGATIVE (Negative)
[2019-01-18 23:41] LABS: ABS Basophils 0.1 10^3/ul (0-0.2); ABS Eosinophils 0.2 10^3/ul (0-0.6); ABS Lymphocytes 0.8 10^3/ul (1.0-4.8); ABS Monocytes 1.1 10^3/ul (0-0.8); ABS Neutrophils 10.6 10^3/ul (1.5-7.7); ABS Nucleated RBC 0 10^3/ul; Eosinophil % 1.3 %; Nucleated Red Blood Cells % 0.1
[2019-01-18 23:42] LABS: Microcytosis 2+
[2019-01-18 23:43] LABS: Polychromasia 1+
[2019-01-19] MEDS ORDERED: LORazepam INJ* 2 MG/ML 1 ML VIAL IV PUSH ONE (00:14)
[2019-01-19 00:19] LABS: Potassium Redraw 4.2 mmol/L (3.5-5.0)
[2019-01-19 00:22] LABS: Troponin I 0.02 ng/mL (<0.04)
[2019-01-19] MEDS ORDERED: Gabapentin CAP(*) 300 MG PO ONE (00:42)
[2019-01-19] MEDS ORDERED: Iohexol 300* (CONTRAST) 10 ML SDV IV ONE (00:48)
[2019-01-19] MEDS ORDERED: Levalbuterol 1.25MG/0.5ML NEB INH ONE (01:45)
[2019-01-19] MEDS ORDERED: Magnesium Sulfate 2 GM IV* 2 GM/50 ML BAG IVPB ONE (01:48)
[2019-01-19 02:18] LABS: Magnesium 1.9 mg/dL (1.9-2.7)
[2019-01-19] MEDS ORDERED: guaiFENesin/CODIEN 100MG-10MG* 5 ML UDC PO ONE (02:44)
[2019-01-19] MEDS ORDERED: Acetaminophen TAB* 325 MG PO PRN (03:31)
[2019-01-19] MEDS ORDERED: Fluticasone NASAL SPRAY 50MCG* 16 gm SPRAY BTL BOTH NARES PRN (03:36)
[2019-01-19] MEDS ORDERED: Albuterol HFA INHALER* 8 gm MDI INH PRN (03:36)
[2019-01-19] MEDS ORDERED: Iohexol 350* (CONTRAST) 500 ML MDV IV ONE (03:44)
[2019-01-19] MEDS ORDERED: Heparin VIAL(*) 5000 UNITS/ML VIAL (FIVE THOUSAND) SUBCUT SCH (06:00)
--- NOTE | 2019-01-19 06:24 | HP ---
CC: Dr. Aly HISTORY AND PHYSICAL: DATE OF ADMISSION: 01/19/19 TIME OF EVALUATION: 3:20 p.m. PRIMARY CARE PROVIDER: Dr. Aly. CHIEF COMPLAINT: "My throat hurts." HISTORY OF PRESENT ILLNESS: Mr. Baron is a 53-year-old male with a past medical history of hypert ension, hypothyroidism, anxiety, OCD with schizoid traits, osteoporosis, hyperlipidemia who presented to the emergency room with complaints of sore throat. He was admitted to [facility] on 01/16/19 to have a surgical procedure with Dr. Gurrola. He had had a right foot second metatarsal stress fracture with n onunion. He underwent open reduction and internal fixation with tibial bone grafts and was feeling w ell. One of the proximal screws had loosened over time. He had no pain, but had some discomfort in t he area. Dr. Gurrola took him to the OR on 01/16/19 for removal of hardware in the right midfoot. T patient went home the same day and he states that he was initially feeling well, but yesterday tyrel latricia he started to have some sore throat, especially when swallowing and this progressed with cough a nd chest congestion. He came to the emergency room, where he had an unremarkable workup, but his saturation dropped to the high 80s with conversation only. Later on, the patient ambulated on room air and his oxygen saturat ion dropped as low as 85% and he complained of mild shortness of breath while ambulating. For that r asael, the hospitalist service was called. He denies fever, chills, chest pain, palpitations. He states that in the past he had a blood test an d was told "that my oxygen was not that good." He has a history of asthma and states that he usually cannot feel his wheezing and this time it feels different. PAST MEDICAL HISTORY: 1. Morbid obesity with a BMI of 41. 2. Hypertension. 3. Hypothyroidism. 4. Anxiety. 5. Obsessive-compulsive disorder with schizoid traits. 6. Osteoporosis. 7. Hyperlipidemia. 8. History of pituitary tumor. 9. Removal of right midfoot hardware by Dr. Gurrola on 01/16/19. MEDICATIONS: 1. Albuterol HFA 1 to 2 puffs inhaled q.4 hours p.r.n. for shortness of breath. 2. Aripiprazole 10 mg p.o. at bedtime. 3. Clomipramine 50 mg p.o. in the morning and 150 mg p.o. at bedtime. 4. Gabapentin 600 mg p.o. t.i.d. 5. Hydrochlorothiazide 25 mg p.o. q.a.m. 6. Hydroxyzine 50 mg p.o. t.i.d. 7. Levocetirizine 5 mg p.o. daily. 8. Loratadine 10 mg p.o. daily. 9. Lorazepam 1 mg p.o. t.i.d. 10. Mometasone nasal spray 50 mcg to both nares daily as needed for allergies. 11. Seroquel 600 mg p.o. at bedtime. 12. Simvastatin 20 mg p.o. at bedtime. 13. AndroGel 1 packet topical daily. 14. Trazodone 50 mg p.o. b.i.d. ALLERGIES: Environmental allergies. FAMILY HISTORY: Positive for heart disease, hypertension, stroke, and cancer. SOCIAL HISTORY: He denies a history of alcohol or tobacco or drug use. Surrogate decision maker is his father, Benitez Baron, phone number is [phone]. REVIEW OF SYSTEMS: A 14-point review of systems was performed and all the pertinent negatives and po sitives are as above in the HPI. PHYSICAL EXAMINATION GENERAL: The patient is a morbidly obese, middle-aged gentleman sitting up on the ED stretcher, in n o acute distress. VITAL SIGNS: Temperature 99.6, heart rate is 102, respiratory rate is 22, oxygen saturation is 94% o n 2 L nasal cannula, and blood pressure is 137/85. HEENT: Pupils are equal. Moist mucous membranes. CVS: Normal S1 and S2. Regular rate and rhythm. LUNGS: Chest sounds heard bilaterally with no added sounds. ABDOMEN: Morbidly obese, nontender. Bowel sounds are present. EXTREMITIES: There is bilateral moderate lower extremity edema. NEUROLOGIC: He is alert and oriented x3. Able to move all 4 extremities. DIAGNOSTIC STUDIES/LAB DATA: The patient had a CBC that showed a WBC of 12.8 with a hemoglobin of 1 5.1, hematocrit of 49, and platelet count of 340 with an MCV of 69 and an MCH of 21. D-dimer was les s than 200. Chemistry showed a sodium of 139, potassium of 4.2, chloride of 99, bicarb of 27, BUN of 14, creatinine of 0.9, glucose of 82, calcium 9.5, magnesium 1.9. LFTs were normal. Troponin was 0 .02. Influenza and group A strep rapid tests were all negative. CT of the neck without contrast showed no acute findings. EKG done on 01/18/19 at 2322 showed sinus tachycardia at 114 beats per minute with no acute ischemic changes, just left anterior fascicular block. This EKG is different from his prior one from 2009 bec ause at that time he had paroxysmal atrial tachycardia. Chest x-ray was not yet officially read and to my read, it does not show acute pulmonary disease. ASSESSMENT AND PLAN: Mr. Baron is a 53-year-old male with a past medical history of hypertension, hypothyroidism, anxiety, obsessive-compulsive disorder with schizoid traits, osteoporosis, hyperlipi demia, and pituitary tumor who was admitted to [facility] on 01/16/19 for removal of right midfoot hardware and now presented to the emergency room with complaints of sore throat and dyspnea and found to be hy poxic. 1. Hypoxia. It is unclear if his hypoxia is new or if he has been hypoxic with exertion, but was un aware. With his recent surgery, he is at risk for pulmonary embolism, especially considering his lower extre mity edema. His Wells criteria is 6, which makes him moderate probability for pulmonary embolism, so even though his d-dimer is negative, we should pursue a CT of the chest to rule out that diagnosis. He does not seem to be in asthma exacerbation at this time or have another pulmonary process. One possibility is that the patient has chronic hypoxia associated with obesity hypoventilation syndr ome that has not been previously diagnosed. 2. Lower extremity edema. The patient is being worked up as an outpatient by his primary care jevoni devin and was started on hydrochlorothiazide with some improvement. 3. Hypertension is controlled. We will continue his hydrochlorothiazide. 4. Obsessive-compulsive disorder. We will continue clomipramine, Seroquel, and trazodone. 5. DVT prophylaxis. The patient has a score of 3 on the DVT Prophylaxis Risk Assessment Guide and h e will be started on subcutaneous heparin. 6. Code status is full. TIME SPENT: Approximately 50 minutes were spent with this patient interview, medical records review, physical examination to complete the admission. More than half of this time was spent [id number] with the patient in coordination of care. [id number]/[facility] #: [id number]
[2019-01-19] MEDS ORDERED: guaiFENesin/CODIEN 100MG-10MG* 5 ML UDC PO PRN (08:20)
--- NOTE | 2019-01-19 08:44 | PN ---
"Progress Note - Progress Note Date of Service: 01/19/19 Note: reflects the information as submitted by the pharmacies. This report was requested by: Mauricio Gallagher | Reference #: [id number] Others' Prescriptions Patient Name: Matt Baron Date: 1965 Address: [address] [place] [address] Sex: Male Rx Written Rx Dispensed Drug Quantity Days Supply Prescriber Name 01/16/2019 01/16/2019 oxycodone hcl 5 mg tablet 10 2 Erik Mikein 05/25/2018 05/25/2018 hydrocodone-acetaminophen 7.5-325 mg/15 ml solution 300ml 5 Mark Santana MD Patient Name: Matt Baron Date: 1965 Address: [address] [place] [address] Sex: Male Rx Written Rx Dispensed Drug Quantity Days Supply Prescriber Name 12/22/2018 12/26/2018 lorazepam 1 mg tablet 90 30 Karol Tamayoricia ( Npp) 11/02/2018 11/05/2018 lorazepam 1 mg tablet 90 30 Belkis Laila ( Npp) 09/22/2018 09/23/2018 lorazepam 1 mg tablet 90 30 Luis Stack) Patient Name: Matt Baron Date: 1965 Address: [address] [place] [address] Sex: Male Rx Written Rx Dispensed Drug Quantity Days Supply Prescriber Name 08/24/2018 08/29/2018 androgel 1.62%(1.25g) gel [facility] 113gm 90 Kvng Boswell 08/15/2018 08/15/2018 lorazepam 1 mg tablet 90 30 Karol Tamayoricia ( Npp) 07/07/2018 07/07/2018 lorazepam 1 mg tablet 90 30 Karol Tamayoricia ( Npp) 06/06/2018 06/06/2018 lorazepam 1 mg tablet 90 30 Luis Stack) 05/06/2018 05/08/2018 lorazepam 1 mg tablet 90 30 Luis Stack) 04/04/2018 04/06/2018 lorazepam 1 mg tablet 90 30 Luis Stack) 02/25/2018 02/28/2018 lorazepam 1 mg tablet 90 30 Luis Stack) 02/15/2018 02/23/2018 androgel 1.62%(1.25g) gel kt 113gm Kvng Burch 01/28/2018 01/28/2018 lorazepam 1 mg tablet 90 30 Luis Stack)"
[2019-01-19 08:51] VITALS: BP 160/99
[2019-01-19] MEDS ORDERED: LORazepam TAB(*) 1 MG PO SCH (09:00)
[2019-01-19] MEDS ORDERED: Hydrochlorothiazide TAB* 25 MG PO SCH (09:00)
[2019-01-19] MEDS ORDERED: Cholecalciferol TAB* 1000 UNITS PO SCH (09:00)
[2019-01-19] MEDS ORDERED: LevoCETirizine TAB (NF) 5 MG TAB PO SCH (09:00)
[2019-01-19] MEDS ORDERED: hydrOXYzine HCL TAB* 50 MG PO SCH (09:00)
[2019-01-19] MEDS ORDERED: Gabapentin CAP(*) 300 MG PO SCH (09:00)
[2019-01-19] MEDS ORDERED: CMCS:ClomiPRAMINE (NF) 25 MG CAP PO SCH (09:00)
[2019-01-19] MEDS ORDERED: traZODone TAB* 50 MG TAB PO SCH (09:00)
--- NOTE | 2019-01-19 12:04 | DS ---
CC: Dr. Aly * DISCHARGE SUMMARY: DATE OF ADMISSION: DATE OF DISCHARGE: 01/19/19 HISTORY OF PRESENT ILLNESS: This 53-year-old man presented with a complaint of sore throat, hoarseness, and productive cough. History is detailed in the admission note. He was noted to be hypoxic in the emergency room with saturation dropping as low as 85% while walking. The patient had a CTA of the chest which did not show any evidence of pulmonary emboli. Noticed D-dimer was normal. He recently had orthopedic surgery and was considered as high risk. On the morning of discharge, his O2 saturation on room air was 91% to 92%. He was quite comfortable. He was noticeably a little hoarse. He was breathing slowly and easily. He said he was brining up some white mucus, but was not short of breath. He generally was in good condition. No chest pain or shortness of breath. I note the patient had had a sleep lab study many years ago for possible sleep apnea but this, according to the patient, was negative. The CT scan of the chest did show some probably chronic vertebral compression fractures. I have started the patient on vitamin D 2000 units daily. He did have a vitamin D level in 2017, but I will leave further management up to his primary care provider. FINAL DIAGNOSES: 1. Viral upper respiratory infection. 2. Morbid obesity. 3. Hypertension. 4. Hypothyroidism. 5. Anxiety. 6. Obsessive compulsive disorder. 7. Osteoporosis. 8. Hyperlipidemia. DISCHARGE MEDICATIONS: 1. Vitamin D 2000 units daily. 2. Guaifenesin and codeine 5 mL every 4 hours p.r.n. 3. Albuterol inhaler 1 to 2 puffs every 4 hours p.r.n. 4. Quetiapine 600 mg h.s. 5. Trazodone 50 mg b.i.d. 6. Aripiprazole 10 mg h.s. 7. Hydroxyzine 50 mg t.i.d. 8. Clomipramine 150 mg h.s. and 50 mg in the morning. 9. Gabapentin 600 mg t.i.d. 10. Mometasone nasal spray 50 mcg both nares p.r.n. 11. Lorazepam 1 mg t.i.d. 12. Simvastatin 20 mg h.s. 13. Hydrochlorothiazide 25 mg daily. 14. Testosterone 1 packet topical daily. 15. Loratadine 10 mg daily. 16. Levocetirizine 5 mg daily. CONDITION ON DISCHARGE: Improved. DISPOSITION ON DISCHARGE: Discharged home. [id number]/[facility] #: [id number] [facility]
[2019-01-19] MEDS ORDERED: QUEtiapine TAB* 300 MG PO SCH (18:00)
[2019-01-19] MEDS ORDERED: ARIPiprazole TAB* 5 MG PO SCH (18:00)
[2019-01-19] MEDS ORDERED: Atorvastatin* 20 MG TAB PO SCH (18:00)
[2019-01-19] MEDS ORDERED: Cetirizine* 10 MG TAB PO SCH (18:00)
[2019-01-19] MEDS ORDERED: ClomiPRAMINE (NF) 25 MG CAP PO SCH (18:00)
== END 2019-01-19 12:00 | disposition home or self-care (01) ==
LOC: ED 21:16 → MED 01-19 03:22
PROVIDERS: ADMIT Internal Medicine; ATTEND Internal Medicine
DX: J06.9 Acute upper respiratory infection, unspecified (principal); E66.01 Morbid (severe) obesity due to excess calories; I10 Essential (primary) hypertension; E03.9 Hypothyroidism, unspecified; F41.9 Anxiety disorder, unspecified; R46.81 Obsessive-compulsive behavior; M81.0 Age-related osteoporosis without current pathological fracture; E78.5 Hyperlipidemia, unspecified; Z68.41 Body mass index [BMI] 40.0-44.9, adult; R05 Cough; R21 Rash and other nonspecific skin eruption
CPT/HCPCS: 36415; 70491; 71046; 71275; 80053; 83735; 83880; 84484; 85025; 85060; 85379; 86140; 87651; 93005; 96374; 96375; 96376; 99284; A9270-GY; G0378; J1644; J2060; J2930; J3475; Q9967